=== PATIENT | male | born 1955 | race Caucasian/White ===

== ENCOUNTER 2018-04-11 20:38 | Inpatient (IN) | payer MEDICARE, MEDICAID ==
[2018-04-11] MEDS: DEXTROSE 5%-0.45% NACL 1,000 ML IV
[2018-04-11] MEDS: VANCOMYCIN 1 GM (PMX) 250 ML IVPB (03:00)
[~2018-04-11 20:38] MED LIST: CA CHLORIDE 10% 10 ML SYRINGE; DEXTROSE 50% 50 ML SYRINGE; EPINEPHrine 0.1 MG/ML SYG; MAGNESIUM SULFATE 1 GM/100 ML D5W IVPB; NA BICARBONATE 8.4% 50 ML SYG
[2018-04-11] MEDS ORDERED: NORepinephrine 4 MG INJ (21:48)
[2018-04-11] MEDS ORDERED: CA CHLORIDE 10% 10 ML SYRINGE (21:52)
[2018-04-11] MEDS ORDERED: NORepinephrine 8MG/250 ML (PMX 250 ML IV (22:00)
[2018-04-11] MEDS: CALCITRIOL (1 MCG/ML PO SYG) PO (22:30)
[2018-04-11 23:08] LABS: ABNORMAL IP MESSAGE 1; HEMATOCRIT 27.4 % (42.0-52.0); IMMATURE GRANS #M 0.79 10^3/ul; MEAN CORPUSCULAR HEMOGLOBIN 30.9 pg (29.0-33.0); MEAN CORPUSCULAR HGB CONC 29.2 g/dl (32.0-37.0); MEAN CORPUSCULAR VOLUME 105.8 fl (82.0-101.0); MEAN PLATELET VOLUME 10.6 fl (7.4-10.4); NUCLEATED RED BLOOD CELLS% 1.2 /100WBC (0.0-0.0); PLATELET COUNT 143 10^3/UL (140-415); POSITIVE DIFF @See below; RED BLOOD COUNT 2.59 10^6/ul (4.70-6.10); RED CELL DISTRIBUTION WIDTH 20.7 % (11.5-14.5)
[2018-04-11 23:08] LABS: WHITE BLOOD COUNT 38.6 10^3/ul (4.8-10.8)
[2018-04-11 23:09] LABS: AADO2 Arterial 595.9 mmHg (7.0-24.0); Arterial Base Excess -16.7 mmol/L (-3.0-3); Arterial Blood Gas Oxygen Sat 87.5 mmHG (95.0-98.0); Arterial COHb 0.3 % (0.0-3.0); Arterial Fraction of Oxyhgb 86.9 % (93.0-99.0); Arterial HCO3 12.6 mmol/L (22.0-26.0); Arterial MetHb 0.4 % (0.0-1.5); Arterial Total Hemglobin 10.6 g/dl (12.0-18.0); Arterial pCO2 43.7 mmhg (35-45); MODE VENT - AC; Site LB
[2018-04-11 23:10] LABS: ADD MAN DIFF? YES
[2018-04-11 23:26] LABS: ANION GAP 22 (8-16); BLOOD UREA NITROGEN 70 mg/dl (7-20); CALCIUM 10.5 mg/dl (8.4-10.2); CARBON DIOXIDE 15 mmol/L (21-31); CHLORIDE 104 mmol/L (97-110); CREATININE 3.72 mg/dl (0.61-1.24); GLUCOSE 281 mg/dl (70-220); POTASSIUM 3.7 mmol/L (3.5-5.1); SODIUM 137 mmol/L (135-144)
[2018-04-11 23:26] LABS: PHOSPHORUS 7.6 mg/dl (2.5-4.9)
[2018-04-11 23:29] LABS: MAGNESIUM 5.1 mg/dl (1.7-2.5)
[2018-04-11] MEDS: LEVETIRACETAM 500 MG (PMX) 100 ML IVPB (23:30)
[2018-04-11] MEDS ORDERED: MEROPENEM 1 GM/50ML(PMX) 50 ML IVPB (23:30)
[2018-04-11] MEDS ORDERED: VANCOMYCIN IV PER PHARMACY XX ×2 (23:30)
[2018-04-12] MEDS: NA BICARBONATE 8.4% 50 ML SYG IV
[2018-04-12 00:06] LABS: ANISOCYTOSIS 1+ (0-0); BAND NEUTROPHILS #M 9.2 10^3/ul (0.0-0.6); BAND NEUTROPHILS % (M) 24 % (0-4); ERYTHROBLAST% (NRBC) (M) 3 % (0-0); GIANT THROMBO% (M) 1 % (0-0); LYMPHOCYTES #M 4.6 10^3/ul (0.8-2.9); LYMPHOCYTES % (M) 12 % (15-51); MONOCYTE #M 1.5 10^3/ul (0.3-0.9); MONOCYTES % (M) 4 % (0-11); MYELOCYTES #M 0.7 10^3/ul (0.0-0.0); MYELOCYTES % (M) 2 % (0-0); PLATELET ESTIMATE NORMAL; POIKILOCYTOSIS 2+ (0-0); REACTIVE LYMPHOCYTES #M 0.7 10^3/ul (0.0-0.0); REACTIVE LYMPHOCYTES% (M) 2 % (0-0); SEG NEUT #M 25.2 10^3/ul (1.6-7.5); SEGMENTED NEUTROPHILS (M) % 56 % (39-77); SMUDGE%M 3 % (0-0)
[2018-04-12] MEDS: ALBUTEROL/IPRATROPIUM (NEB) 3 ML AMP HHN ×2 (01:53→08:51)
[2018-04-12] MEDS: PANTOPRAZOLE 40 MG INJ IV (02:49)
[2018-04-12 04:44] LABS: WHITE BLOOD COUNT 47.4 10^3/ul (4.8-10.8)
[2018-04-12 04:44] LABS: ABNORMAL IP MESSAGE 1; HEMATOCRIT 30.1 % (42.0-52.0); HEMOGLOBIN 9.2 g/dl (14.0-18.0); IMMATURE GRANS #M 0.96 10^3/ul; MEAN CORPUSCULAR HEMOGLOBIN 30.8 pg (29.0-33.0); MEAN CORPUSCULAR HGB CONC 30.6 g/dl (32.0-37.0); MEAN CORPUSCULAR VOLUME 100.7 fl (82.0-101.0); MEAN PLATELET VOLUME 11.4 fl (7.4-10.4); NUCLEATED RED BLOOD CELLS% 2.1 /100WBC (0.0-0.0); PLATELET COUNT 151 10^3/UL (140-415); POSITIVE DIFF @See below; RED BLOOD COUNT 2.99 10^6/ul (4.70-6.10); RED CELL DISTRIBUTION WIDTH 20.7 % (11.5-14.5)
[2018-04-12 04:48] LABS: ADD MAN DIFF? YES
[2018-04-12 05:15] LABS: ALANINE AMINOTRANSFERASE 19 IU/L (13-69); ALBUMIN 2.6 g/dl (3.3-4.9); ALBUMIN/GLOBULIN RATIO 0.68; ALKALINE PHOSPHATASE 411 IU/L (42-121); ANION GAP 20 (8-16); ASPARTATE AMINO TRANSFERASE 82 IU/L (15-46); BILIRUBIN,TOTAL 0.1 mg/dl (0.2-1.3); BLOOD UREA NITROGEN 72 mg/dl (7-20); CALCIUM 10.1 mg/dl (8.4-10.2); CARBON DIOXIDE 20 mmol/L (21-31); CHLORIDE 103 mmol/L (97-110); CREATININE 3.46 mg/dl (0.61-1.24); GLUCOSE 238 mg/dl (70-220); POTASSIUM 3.8 mmol/L (3.5-5.1); SODIUM 139 mmol/L (135-144); TOTAL PROTEIN 6.4 g/dl (6.1-8.1)
[2018-04-12 05:28] LABS: LACTIC ACID 4.8 mmol/L (0.5-2.0)
[2018-04-12] MEDS ORDERED: METOCLOPRAMIDE 10 MG INJ IV (06:00)
[2018-04-12] MEDS ORDERED: PANTOPRAZOLE (EC) 40 MG TAB PO (06:00)
[2018-04-12] MEDS: LEVOTHYROXINE 100 MCG TAB PEG (06:03)
[2018-04-12] MEDS: metroNIDAZOLE 500 MG TAB GTB ×3 (06:03→21:14)
[2018-04-12 07:33] LABS: ANISOCYTOSIS 2+ (0-0); BAND NEUTROPHILS #M 25.5 10^3/ul (0.0-0.6); BAND NEUTROPHILS % (M) 54 % (0-4); BURR CELLS 1+ (0-0); EOSINOPHILS % (M) 1 % (0-7); ERYTHROBLAST% (NRBC) (M) 1 % (0-0); LYMPHOCYTES #M 0.9 10^3/ul (0.8-2.9); LYMPHOCYTES % (M) 2 % (15-51); METAMYELOCYTES #M 0.9 10^3/ul (0.0-0.0); METAMYELOCYTES %M 2 % (0-0); MONOCYTE #M 2.3 10^3/ul (0.3-0.9); MONOCYTES % (M) 5 % (0-11); PLATELET ESTIMATE NORMAL; POIKILOCYTOSIS 1+ (0-0); SEG NEUT #M 29.2 10^3/ul (1.6-7.5); SEGMENTED NEUTROPHILS (M) % 36 % (39-77); SMUDGE%M 1 % (0-0)
[2018-04-12] MEDS: LEVETIRACETAM 500 MG (PMX) 100 ML IVPB ×2 (09:08→21:14)
[2018-04-12] MEDS: VALPROIC ACID LIQUID CUP 250 MG/5 ML CUP GTB (09:08)
[2018-04-12] MEDS: DOPamine-D5W 1.6 MG/ML 250 ML IV (09:16)
[2018-04-12] MEDS: MEROPENEM 500MG/50 ML (PMX) 50 ML IVPB ×2 (10:01→21:14)
[2018-04-12] MEDS ORDERED: AMIKACIN 500 MG in SOD CHLORIDE 0.9% 100 ML IVPB (10:30)
[2018-04-12] MEDS ORDERED: AMIKACIN IV PER PHARMACY XX (11:00)
[2018-04-12] MEDS ORDERED: AMIKACIN 400 MG in SOD CHLORIDE 0.9% 100 ML IVPB (12:00)
[2018-04-12 12:28] LABS: INR 1.93; PROTIME 22.5 Sec (11.9-14.9); PT RATIO 1.8
[2018-04-12 12:30] LABS: PARTIAL THROMBOPLASTIN TIME 62.7 Sec (25.0-35.0)
[2018-04-12] MEDS: ALBUMIN HUMAN 25% 100 ML IV (12:54)
[2018-04-12 13:09] LABS: Arterial COHb 0.3 % (0.0-3.0); Site A-Line
[2018-04-12] MEDS ORDERED: SODIUM BICARBONATE (IV ADD) 150 MEQ in DEXTROSE 5% 1,000 ML IV (13:30)
[2018-04-12] MEDS: SODIUM BICARBONATE (IV ADD) 150 MEQ in DEXTROSE 5% 1,000 ML IV (13:43)
[2018-04-12] MEDS: VASOPRESSIN 60 UNIT in DEXTROSE 5% 57 ML IV (13:56)
[2018-04-12 14:02] LABS: Arterial Base Excess -9.8 mmol/L (-3.0-3); Arterial Blood Gas Oxygen Sat 88.8 mmHG (95.0-98.0); Arterial COHb 0.3 % (0.0-3.0); Arterial Fraction of Oxyhgb 88.2 % (93.0-99.0); Arterial HCO3 15.6 mmol/L (22.0-26.0); Arterial MetHb 0.4 % (0.0-1.5); Arterial Total Hemglobin 10.1 g/dl (12.0-18.0); Arterial pCO2 32.3 mmhg (35-45); MODE VENT - AC; Site A-Line
[2018-04-12] MEDS: HYDROCORTISONE 100 MG INJ IV ×2 (14:15→21:14)
[2018-04-12] MEDS: IPRATROPIUM (HFA) 12.9 GM INHALER INH ×3 (14:25→20:33)
[2018-04-12] MEDS: ALBUTEROL HFA 8 GM INHALER INH ×3 (14:25→20:33)
[2018-04-12] MEDS: AMIKACIN 400 MG in SOD CHLORIDE 0.9% 100 ML IVPB (18:28)
[2018-04-12] MEDS: DIVALPROEX SPRINKLE 125 MG CAP PO (21:14)
[2018-04-12] MEDS: ATORVASTATIN 20 MG TAB GTB (21:14)
[2018-04-13] MEDS ORDERED: PROPOFOL 100 ML (01:08)
[2018-04-13] MEDS: PROPOFOL 100 ML IV ×4 (01:17→20:40)
[2018-04-13] MEDS: ALBUTEROL HFA 8 GM INHALER INH ×6 (01:45→20:02)
[2018-04-13] MEDS: IPRATROPIUM (HFA) 12.9 GM INHALER INH ×6 (01:45→20:02)
[2018-04-13] MEDS: VASOPRESSIN 60 UNIT in DEXTROSE 5% 57 ML IV ×2 (02:00→10:15)
[2018-04-13] MEDS: METOCLOPRAMIDE 10 MG INJ IV (02:50)
[2018-04-13 04:52] LABS: AADO2 Arterial 630.2 mmHg (7.0-24.0); Arterial Base Excess -10.6 mmol/L (-3.0-3); Arterial Blood Gas Oxygen Sat 82.8 mmHG (95.0-98.0); Arterial Fraction of Oxyhgb 82.1 % (93.0-99.0); Arterial HCO3 14.8 mmol/L (22.0-26.0); Arterial MetHb 0.5 % (0.0-1.5); Arterial Total Hemglobin 12.1 g/dl (12.0-18.0); Arterial pCO2 31.3 mmhg (35-45); MODE VENT - PC
[2018-04-13 05:19] LABS: WHITE BLOOD COUNT 34.5 10^3/ul (4.8-10.8)
[2018-04-13 05:19] LABS: ABNORMAL IP MESSAGE 1; HEMATOCRIT 25.3 % (42.0-52.0); IMMATURE GRANS #M 0.79 10^3/ul; IMMATURE GRANS % (M) 2.3 %; MEAN CORPUSCULAR HEMOGLOBIN 30.9 pg (29.0-33.0); MEAN CORPUSCULAR HGB CONC 31.6 g/dl (32.0-37.0); MEAN CORPUSCULAR VOLUME 97.7 fl (82.0-101.0); NUCLEATED RED BLOOD CELLS% 4.1 /100WBC (0.0-0.0); PLATELET COUNT 125 10^3/UL (140-415); POSITIVE DIFF @See below; RED BLOOD COUNT 2.59 10^6/ul (4.70-6.10); RED CELL DISTRIBUTION WIDTH 20.5 % (11.5-14.5)
[2018-04-13 05:24] LABS: LACTIC ACID 4.5 mmol/L (0.5-2.0)
[2018-04-13 05:27] LABS: ADD MAN DIFF? YES
[2018-04-13 05:36] LABS: PARTIAL THROMBOPLASTIN TIME 67.7 Sec (25.0-35.0)
[2018-04-13 05:39] LABS: INR 3.85; PROTIME 39.1 Sec (11.9-14.9); PT RATIO 3.1
[2018-04-13 05:42] LABS: ALANINE AMINOTRANSFERASE 25 IU/L (13-69); ALBUMIN 2.2 g/dl (3.3-4.9); ALBUMIN/GLOBULIN RATIO 0.64; ALKALINE PHOSPHATASE 259 IU/L (42-121); ANION GAP 24 (8-16); ASPARTATE AMINO TRANSFERASE 104 IU/L (15-46); BILIRUBIN,TOTAL 0.1 mg/dl (0.2-1.3); BLOOD UREA NITROGEN 81 mg/dl (7-20); CARBON DIOXIDE 17 mmol/L (21-31); CHLORIDE 101 mmol/L (97-110); CREATININE 3.62 mg/dl (0.61-1.24); GLUCOSE 84 mg/dl (70-220); POTASSIUM 5.5 mmol/L (3.5-5.1); SODIUM 136 mmol/L (135-144); TOTAL PROTEIN 5.6 g/dl (6.1-8.1)
[2018-04-13] MEDS: HYDROCORTISONE 100 MG INJ IV ×3 (06:21→21:57)
[2018-04-13] MEDS: metroNIDAZOLE 500 MG TAB GTB ×3 (06:21→21:57)
[2018-04-13] MEDS: PANTOPRAZOLE 40 MG INJ IV (06:21)
[2018-04-13] MEDS: LEVOTHYROXINE 100 MCG TAB PEG (06:21)
[2018-04-13 07:56] LABS: ANISOCYTOSIS 1+ (0-0); BAND NEUTROPHILS #M 18.9 10^3/ul (0.0-0.6); BAND NEUTROPHILS % (M) 55 % (0-4); BURR CELLS 2+ (0-0); EOSINOPHILS % (M) 2 % (0-7); ERYTHROBLAST% (NRBC) (M) 7 % (0-0); GIANT THROMBO% (M) 1 % (0-0); LYMPHOCYTES #M 0.3 10^3/ul (0.8-2.9); LYMPHOCYTES % (M) 1 % (15-51); MONOCYTE #M 1.3 10^3/ul (0.3-0.9); MONOCYTES % (M) 4 % (0-11); OVALOCYTES 1+ (0-0); PLATELET ESTIMATE DECREASED; POIKILOCYTOSIS 1+ (0-0); POLYCHROMASIA 1+ (0-0); SEG NEUT #M 19.6 10^3/ul (1.6-7.5); SEGMENTED NEUTROPHILS (M) % 38 % (39-77); SMUDGE%M 11 % (0-0)
[2018-04-13] MEDS: LEVETIRACETAM 500 MG (PMX) 100 ML IVPB ×2 (08:26→20:40)
[2018-04-13] MEDS: MEROPENEM 500MG/50 ML (PMX) 50 ML IVPB ×2 (08:27→20:40)
[2018-04-13] MEDS: VALPROIC ACID LIQUID CUP 250 MG/5 ML CUP GTB (08:27)
[2018-04-13] MEDS: SODIUM BICARBONATE (IV ADD) 150 MEQ in DEXTROSE 5% 1,000 ML IV (10:12)
[2018-04-13] MEDS: DIVALPROEX SPRINKLE 125 MG CAP PO (20:39)
[2018-04-13] MEDS: ATORVASTATIN 20 MG TAB GTB (20:39)
[2018-04-13] MEDS: CALCITRIOL (1 MCG/ML PO SYG) PO (22:31)
[2018-04-14] MEDS: ALBUTEROL HFA 8 GM INHALER INH ×6 (00:13→21:08)
[2018-04-14] MEDS: IPRATROPIUM (HFA) 12.9 GM INHALER INH ×6 (00:13→21:08)
[2018-04-14] MEDS: PROPOFOL 100 ML IV ×3 (04:02→18:03)
[2018-04-14 04:59] LABS: AADO2 Arterial 560.2 mmHg (7.0-24.0); Allen Test ACCEPTAB; Arterial Base Excess -6.9 mmol/L (-3.0-3); Arterial Blood Gas Oxygen Sat 97.6 mmHG (95.0-98.0); Arterial COHb 0.2 % (0.0-3.0); Arterial Fraction of Oxyhgb 96.8 % (93.0-99.0); Arterial HCO3 19.1 mmol/L (22.0-26.0); Arterial MetHb 0.6 % (0.0-1.5); Arterial Total Hemglobin 7.5 g/dl (12.0-18.0); Arterial pCO2 41.1 mmhg (35-45); MODE VENT - AC; Site Left Radial
[2018-04-14] MEDS: HYDROCORTISONE 100 MG INJ IV ×3 (05:43→22:16)
[2018-04-14] MEDS: metroNIDAZOLE 500 MG TAB GTB (05:43)
[2018-04-14] MEDS: SODIUM BICARBONATE (IV ADD) 150 MEQ in DEXTROSE 5% 1,000 ML IV (05:43)
[2018-04-14] MEDS: PANTOPRAZOLE 40 MG INJ IV (05:43)
[2018-04-14] MEDS: LEVOTHYROXINE 100 MCG TAB PEG (05:43)
[2018-04-14] MEDS: VASOPRESSIN 60 UNIT in DEXTROSE 5% 57 ML IV ×2 (05:48→14:00)
[2018-04-14 06:08] LABS: ABNORMAL IP MESSAGE 1; HEMOGLOBIN 7.5 g/dl (14.0-18.0); IMMATURE GRANS #M 0.09 10^3/ul; IMMATURE GRANS % (M) 0.7 %; MEAN CORPUSCULAR HEMOGLOBIN 30.4 pg (29.0-33.0); MEAN CORPUSCULAR HGB CONC 31.3 g/dl (32.0-37.0); MEAN CORPUSCULAR VOLUME 97.2 fl (82.0-101.0); MEAN PLATELET VOLUME 12.4 fl (7.4-10.4); NUCLEATED RED BLOOD CELLS% 12.3 /100WBC (0.0-0.0); PLATELET COUNT 114 10^3/UL (140-415); POSITIVE DIFF @See below; RED BLOOD COUNT 2.47 10^6/ul (4.70-6.10); RED CELL DISTRIBUTION WIDTH 20.2 % (11.5-14.5)
[2018-04-14 06:08] LABS: WHITE BLOOD COUNT 13.2 10^3/ul (4.8-10.8)
[2018-04-14 06:17] LABS: ANION GAP 23 (8-16); BLOOD UREA NITROGEN 96 mg/dl (7-20); CALCIUM 7.8 mg/dl (8.4-10.2); CARBON DIOXIDE 19 mmol/L (21-31); CHLORIDE 95 mmol/L (97-110); CREATININE 4.08 mg/dl (0.61-1.24); GLUCOSE 112 mg/dl (70-220); SODIUM 131 mmol/L (135-144)
[2018-04-14 06:19] LABS: LACTIC ACID 2.7 mmol/L (0.5-2.0)
[2018-04-14 06:20] LABS: ADD MAN DIFF? YES
[2018-04-14 06:22] LABS: POTASSIUM 6.2 mmol/L (3.5-5.1)
[2018-04-14] MEDS: LEVETIRACETAM 500 MG (PMX) 100 ML IVPB ×2 (08:29→20:48)
[2018-04-14] MEDS: MEROPENEM 500MG/50 ML (PMX) 50 ML IVPB ×2 (08:29→20:48)
[2018-04-14 08:35] LABS: ANISOCYTOSIS 1+ (0-0); BAND NEUTROPHILS #M 5.9 10^3/ul (0.0-0.6); BAND NEUTROPHILS % (M) 45 % (0-4); ERYTHROBLAST% (NRBC) (M) 17 % (0-0); GIANT THROMBO% (M) 1 % (0-0); HYPOCHROMASIA 1+ (0-0); LYMPHOCYTES #M 0.7 10^3/ul (0.8-2.9); LYMPHOCYTES % (M) 6 % (15-51); METAMYELOCYTES #M 0.1 10^3/ul (0.0-0.0); METAMYELOCYTES %M 1 % (0-0); MONOCYTE #M 1.8 10^3/ul (0.3-0.9); MONOCYTES % (M) 14 % (0-11); PLATELET ESTIMATE DECREASED; POLYCHROMASIA 1+ (0-0); SEG NEUT #M 5.3 10^3/ul (1.6-7.5); SEGMENTED NEUTROPHILS (M) % 34 % (39-77); SMUDGE%M 24 % (0-0)
[2018-04-14] MEDS: VALPROIC ACID LIQUID CUP 250 MG/5 ML CUP GTB (09:00)
[2018-04-14] MEDS ORDERED: TOBRAMYCIN IV PER PHARMACY XX (10:00)
[2018-04-14] MEDS: TOBRAMYCIN IVPB (12:24)
[2018-04-14] MEDS: SOD CHLORIDE 0.9% IVPB (12:24)
[2018-04-14] MEDS ORDERED: metroNIDAZOLE 500 MG/NS (PMX) 100 ML IVPB (14:00)
[2018-04-14] MEDS: DIVALPROEX SPRINKLE 125 MG CAP PO (20:48)
[2018-04-14] MEDS: ATORVASTATIN 20 MG TAB GTB (20:49)
[2018-04-15] MEDS: IPRATROPIUM (HFA) 12.9 GM INHALER INH ×6 (01:03→21:36)
[2018-04-15] MEDS: ALBUTEROL HFA 8 GM INHALER INH ×6 (01:04→21:36)
[2018-04-15] MEDS: SODIUM BICARBONATE (IV ADD) 150 MEQ in DEXTROSE 5% 1,000 ML IV (01:49)
[2018-04-15] MEDS: PROPOFOL 100 ML IV (01:49)
[2018-04-15] MEDS: VASOPRESSIN 60 UNIT in DEXTROSE 5% 57 ML IV ×2 (01:54→15:45)
[2018-04-15] MEDS: BALSAM PERU/CASTOR OIL 60 GM TUBE TOP ×3 (04:43→21:05)
[2018-04-15] MEDS: COLLAGENASE 5 GM (UD JAR) TOP ×2 (04:43→17:59)
[2018-04-15 05:24] LABS: WHITE BLOOD COUNT 8.1 10^3/ul (4.8-10.8)
[2018-04-15 05:24] LABS: ABNORMAL IP MESSAGE 1; HEMATOCRIT 22.8 % (42.0-52.0); HEMOGLOBIN 7.4 g/dl (14.0-18.0); IMMATURE GRANS % (M) 1.2 %; MEAN CORPUSCULAR HGB CONC 32.5 g/dl (32.0-37.0); MEAN CORPUSCULAR VOLUME 95.4 fl (82.0-101.0); MEAN PLATELET VOLUME 12.5 fl (7.4-10.4); NUCLEATED RED BLOOD CELLS% 19.2 /100WBC (0.0-0.0); PLATELET COUNT 96 10^3/UL (140-415); POSITIVE DIFF @See below; RED BLOOD COUNT 2.39 10^6/ul (4.70-6.10); RED CELL DISTRIBUTION WIDTH 20.2 % (11.5-14.5)
[2018-04-15] MEDS: PANTOPRAZOLE 40 MG INJ IV (05:30)
[2018-04-15] MEDS: HYDROCORTISONE 100 MG INJ IV ×3 (05:30→22:10)
[2018-04-15 05:36] LABS: ANION GAP 23 (8-16); BLOOD UREA NITROGEN 67 mg/dl (7-20); CALCIUM 7.2 mg/dl (8.4-10.2); CARBON DIOXIDE 21 mmol/L (21-31); CHLORIDE 97 mmol/L (97-110); CREATININE 2.48 mg/dl (0.61-1.24); GLUCOSE 112 mg/dl (70-220); POTASSIUM 4.6 mmol/L (3.5-5.1); SODIUM 136 mmol/L (135-144)
[2018-04-15] MEDS ORDERED: LEVOTHYROXINE 100 MCG VIAL IV (06:00)
[2018-04-15 06:15] LABS: ADD MAN DIFF? YES
[2018-04-15] MEDS: LEVOTHYROXINE 100 MCG VIAL IV (06:58)
[2018-04-15] MEDS: VALPROIC ACID LIQUID CUP 250 MG/5 ML CUP GTB (09:00)
[2018-04-15 09:18] LABS: ANISOCYTOSIS 1+ (0-0); BAND NEUTROPHILS #M 4.2 10^3/ul (0.0-0.6); BAND NEUTROPHILS % (M) 52 % (0-4); ERYTHROBLAST% (NRBC) (M) 49 % (0-0); GIANT THROMBO% (M) 2 % (0-0); LYMPHOCYTES #M 0.7 10^3/ul (0.8-2.9); LYMPHOCYTES % (M) 9 % (15-51); METAMYELOCYTES #M 0.2 10^3/ul (0.0-0.0); METAMYELOCYTES %M 3 % (0-0); MONOCYTE #M 0.8 10^3/ul (0.3-0.9); MONOCYTES % (M) 10 % (0-11); MYELOCYTES #M 0.4 10^3/ul (0.0-0.0); MYELOCYTES % (M) 5 % (0-0); PLATELET ESTIMATE DECREASED; POLYCHROMASIA 3+ (0-0); SEGMENTED NEUTROPHILS (M) % 21 % (39-77); SMUDGE%M 76 % (0-0); SPHEROCYTES 1+ (0-0); TARGET CELLS 2+ (0-0)
[2018-04-15] MEDS: LEVETIRACETAM 500 MG (PMX) 100 ML IVPB ×2 (09:48→21:03)
[2018-04-15] MEDS: MEROPENEM 500MG/50 ML (PMX) 50 ML IVPB ×2 (10:06→21:02)
[2018-04-15] MEDS: SOD CHLORIDE 0.9% 250 ML IV* (12:43)
[2018-04-15 13:03] LABS: PLATELET COUNT 87 10^3/UL (140-415)
[2018-04-15 13:19] LABS: INR 1.23; PROTIME 15.7 Sec (11.9-14.9); PT RATIO 1.2
[2018-04-15 13:20] LABS: PARTIAL THROMBOPLASTIN TIME 39.1 Sec (25.0-35.0); THROMBIN TIME 17.7 SEC (13.8-19.1)
[2018-04-15] MEDS: SODIUM BICARBONATE (IV ADD) 100 MEQ in DEXTROSE 5% 900 ML IV (16:45)
[2018-04-15] MEDS: DIVALPROEX SPRINKLE 125 MG CAP PO (21:03)
[2018-04-15] MEDS: ATORVASTATIN 20 MG TAB GTB (21:03)
[2018-04-15] MEDS: CALCITRIOL (1 MCG/ML PO SYG) PO (22:10)
[2018-04-16] MEDS: IPRATROPIUM (HFA) 12.9 GM INHALER INH ×6 (01:13→20:35)
[2018-04-16] MEDS: ALBUTEROL HFA 8 GM INHALER INH ×6 (01:13→20:35)
[2018-04-16] MEDS: VASOPRESSIN 60 UNIT in DEXTROSE 5% 57 ML IV ×3 (02:17→14:00)
[2018-04-16 05:41] LABS: WHITE BLOOD COUNT 9.6 10^3/ul (4.8-10.8)
[2018-04-16 05:41] LABS: ABNORMAL IP MESSAGE 1; HEMATOCRIT 24.4 % (42.0-52.0); HEMOGLOBIN 7.9 g/dl (14.0-18.0); IMMATURE GRANS #M 0.15 10^3/ul; IMMATURE GRANS % (M) 1.6 %; MEAN CORPUSCULAR HEMOGLOBIN 30.2 pg (29.0-33.0); MEAN CORPUSCULAR HGB CONC 32.4 g/dl (32.0-37.0); MEAN CORPUSCULAR VOLUME 93.1 fl (82.0-101.0); MEAN PLATELET VOLUME 12.9 fl (7.4-10.4); NUCLEATED RED BLOOD CELLS% 16.9 /100WBC (0.0-0.0); PLATELET COUNT 102 10^3/UL (140-415); POSITIVE DIFF @See below; RED BLOOD COUNT 2.62 10^6/ul (4.70-6.10); RED CELL DISTRIBUTION WIDTH 20.3 % (11.5-14.5)
[2018-04-16] MEDS: HYDROCORTISONE 100 MG INJ IV ×3 (06:02→22:48)
[2018-04-16] MEDS: PANTOPRAZOLE 40 MG INJ IV (06:03)
[2018-04-16] MEDS: LEVOTHYROXINE 100 MCG VIAL IV (06:03)
[2018-04-16 06:04] LABS: ANION GAP 24 (8-16); BLOOD UREA NITROGEN 82 mg/dl (7-20); CARBON DIOXIDE 23 mmol/L (21-31); CHLORIDE 92 mmol/L (97-110); GLUCOSE 103 mg/dl (70-220); POTASSIUM 4.4 mmol/L (3.5-5.1); SODIUM 135 mmol/L (135-144)
[2018-04-16 06:32] LABS: ADD MAN DIFF? YES
[2018-04-16] MEDS: MEROPENEM 500MG/50 ML (PMX) 50 ML IVPB ×2 (08:39→20:16)
[2018-04-16] MEDS: LEVETIRACETAM 500 MG (PMX) 100 ML IVPB ×2 (08:39→20:16)
[2018-04-16] MEDS: COLLAGENASE 5 GM (UD JAR) TOP (08:39)
[2018-04-16] MEDS: VALPROIC ACID LIQUID CUP 250 MG/5 ML CUP GTB (08:40)
[2018-04-16] MEDS: BALSAM PERU/CASTOR OIL 60 GM TUBE TOP ×2 (08:40→20:16)
[2018-04-16 09:29] LABS: ANISOCYTOSIS 1+ (0-0); BAND NEUTROPHILS #M 4.3 10^3/ul (0.0-0.6); BAND NEUTROPHILS % (M) 45 % (0-4); BASOPHIL #M 0.1 10^3/ul (0.0-0.0); BASOPHILS % (M) 2 % (0-2); EOSINOPHILS % (M) 2 % (0-7); ERYTHROBLAST% (NRBC) (M) 29 % (0-0); GIANT THROMBO% (M) 3 % (0-0); LYMPHOCYTES #M 1.8 10^3/ul (0.8-2.9); LYMPHOCYTES % (M) 19 % (15-51); MONOCYTE #M 0.7 10^3/ul (0.3-0.9); MONOCYTES % (M) 8 % (0-11); MYELOCYTES % (M) 1 % (0-0); PLATELET ESTIMATE DECREASED; POLYCHROMASIA 2+ (0-0); REACTIVE LYMPHOCYTES% (M) 1 % (0-0); SEG NEUT #M 2.4 10^3/ul (1.6-7.5); SEGMENTED NEUTROPHILS (M) % 21 % (39-77); SMUDGE%M 21 % (0-0); TARGET CELLS 1+ (0-0)
[2018-04-16 12:42] LABS: LACTIC ACID 3.7 mmol/L (0.5-2.0)
[2018-04-16] MEDS: ERYTHROMYCIN BASE (EC) 250 MG TAB PO ×2 (13:07→22:00)
[2018-04-16] MEDS: PROPOFOL 100 ML IV ×2 (19:43→19:46)
[2018-04-16] MEDS: ATORVASTATIN 20 MG TAB GTB (19:44)
[2018-04-16] MEDS: DIVALPROEX SPRINKLE 125 MG CAP PO (19:45)
[2018-04-16] MEDS: HEPARIN 5,000 UNIT/0.5 ML VIAL SC (20:23)
[2018-04-17] MEDS: IPRATROPIUM (HFA) 12.9 GM INHALER INH ×6 (00:10→21:08)
[2018-04-17] MEDS: ALBUTEROL HFA 8 GM INHALER INH ×6 (00:11→21:08)
[2018-04-17] MEDS: PROPOFOL 100 ML IV ×2 (01:30→13:30)
[2018-04-17] MEDS: VASOPRESSIN 60 UNIT in DEXTROSE 5% 57 ML IV ×2 (02:00→13:44)
[2018-04-17 03:58] LABS: IMMEDIATE SPIN CROSSMATCH 1 3
[2018-04-17] MEDS: ERYTHROMYCIN BASE (EC) 250 MG TAB PO ×3 (06:00→21:23)
[2018-04-17] MEDS: LEVOTHYROXINE 100 MCG VIAL IV (06:49)
[2018-04-17] MEDS: HYDROCORTISONE 100 MG INJ IV ×3 (06:49→21:23)
[2018-04-17] MEDS: PANTOPRAZOLE 40 MG INJ IV (06:49)
[2018-04-17] MEDS: TOBRAMYCIN 100 MG in SOD CHLORIDE 0.9% 100 ML IVPB (06:50)
[2018-04-17 07:36] LABS: ABNORMAL IP MESSAGE 1; HEMATOCRIT 32.2 % (42.0-52.0); HEMOGLOBIN 10.9 g/dl (14.0-18.0); MEAN CORPUSCULAR HEMOGLOBIN 30.6 pg (29.0-33.0); MEAN CORPUSCULAR HGB CONC 33.9 g/dl (32.0-37.0); MEAN CORPUSCULAR VOLUME 90.4 fl (82.0-101.0); MEAN PLATELET VOLUME 12.9 fl (7.4-10.4); NUCLEATED RED BLOOD CELLS% 20.7 /100WBC (0.0-0.0); PLATELET COUNT 133 10^3/UL (140-415); POSITIVE DIFF @See below; RED BLOOD COUNT 3.56 10^6/ul (4.70-6.10); RED CELL DISTRIBUTION WIDTH 18.5 % (11.5-14.5)
[2018-04-17 07:36] LABS: WHITE BLOOD COUNT 10.9 10^3/ul (4.8-10.8)
[2018-04-17 07:50] LABS: ADD MAN DIFF? YES
[2018-04-17 07:56] LABS: ANION GAP 22 (8-16); BLOOD UREA NITROGEN 44 mg/dl (7-20); CALCIUM 7.7 mg/dl (8.4-10.2); CARBON DIOXIDE 29 mmol/L (21-31); CHLORIDE 92 mmol/L (97-110); CREATININE 1.56 mg/dl (0.61-1.24); GLUCOSE 85 mg/dl (70-220); POTASSIUM 3.1 mmol/L (3.5-5.1); SODIUM 140 mmol/L (135-144)
[2018-04-17 07:56] LABS: LACTIC ACID 1.7 mmol/L (0.5-2.0)
[2018-04-17] MEDS: VALPROIC ACID LIQUID CUP 250 MG/5 ML CUP GTB (09:00)
[2018-04-17] MEDS: COLLAGENASE 5 GM (UD JAR) TOP (09:00)
[2018-04-17] MEDS: BALSAM PERU/CASTOR OIL 60 GM TUBE TOP ×2 (09:00→21:06)
[2018-04-17 09:12] LABS: ANISOCYTOSIS 2+ (0-0); BAND NEUTROPHILS #M 3.5 10^3/ul (0.0-0.6); BAND NEUTROPHILS % (M) 33 % (0-4); BASOPHIL #M 0.2 10^3/ul (0.0-0.0); BASOPHILS % (M) 2 % (0-2); ERYTHROBLAST% (NRBC) (M) 8 % (0-0); GIANT THROMBO% (M) 2 % (0-0); LYMPHOCYTES #M 1.1 10^3/ul (0.8-2.9); LYMPHOCYTES % (M) 11 % (15-51); MONOCYTE #M 0.4 10^3/ul (0.3-0.9); MONOCYTES % (M) 4 % (0-11); PLATELET ESTIMATE DECREASED; POLYCHROMASIA 1+ (0-0); SEG NEUT #M 5.8 10^3/ul (1.6-7.5); SEGMENTED NEUTROPHILS (M) % 50 % (39-77); TARGET CELLS 1+ (0-0); TOXIC GRANULATION 2+ (0-0)
[2018-04-17] MEDS: MEROPENEM 500MG/50 ML (PMX) 50 ML IVPB ×2 (09:13→21:05)
[2018-04-17] MEDS: LEVETIRACETAM 500 MG (PMX) 100 ML IVPB ×2 (09:13→21:05)
[2018-04-17] MEDS: HEPARIN 5,000 UNIT/0.5 ML VIAL SC ×2 (09:14→21:11)
[2018-04-17] MEDS: POTASSIUM CHLORIDE 50 ML IVPB ×2 (12:34→15:14)
[2018-04-17] MEDS: LIDOCAINE 1% (MPF) 5 ML VIAL (15:45)
[2018-04-17] MEDS ORDERED: PENDING SANTYL ORDER FOR WOUND CARE XX (18:30)
[2018-04-17] MEDS: ATORVASTATIN 20 MG TAB GTB (21:05)
[2018-04-17] MEDS: DIVALPROEX SPRINKLE 125 MG CAP PO (21:05)
[2018-04-17] MEDS: CALCITRIOL (1 MCG/ML PO SYG) PO (21:25)
[2018-04-18] MEDS: ALBUTEROL HFA 8 GM INHALER INH ×6 (01:08→21:38)
[2018-04-18] MEDS: IPRATROPIUM (HFA) 12.9 GM INHALER INH ×6 (01:08→21:38)
[2018-04-18] MEDS: PROPOFOL 100 ML IV ×2 (01:30→11:01)
[2018-04-18] MEDS: VASOPRESSIN 60 UNIT in DEXTROSE 5% 57 ML IV ×2 (02:00→11:01)
[2018-04-18 05:12] LABS: ADD MAN DIFF? NO
[2018-04-18 05:17] LABS: BASOPHIL # 0.1 10^3/ul (0.0-0.1); BASOPHILS % 0.4 % (0.0-2.0); HEMATOCRIT 29.3 % (42.0-52.0); HEMOGLOBIN 9.8 g/dl (14.0-18.0); LYMPHOCYTES % 8.5 % (15.0-51.0); MEAN CORPUSCULAR HEMOGLOBIN 30.2 pg (29.0-33.0); MEAN CORPUSCULAR HGB CONC 33.4 g/dl (32.0-37.0); MEAN CORPUSCULAR VOLUME 90.2 fl (82.0-101.0); MEAN PLATELET VOLUME 12.5 fl (7.4-10.4); MONOCYTES % 8.4 % (0.0-11.0); NEUTROPHIL # 9.8 10^3/ul (1.6-7.5); NEUTROPHILS % 81.9 % (39.0-77.0); NUCLEATED RED BLOOD CELLS # 2.4 10^3/ul (0.0-0.0); NUCLEATED RED BLOOD CELLS% 20.3 /100WBC (0.0-0.0); PLATELET COUNT 152 10^3/UL (140-415); POSITIVE DIFF @See below; RED BLOOD COUNT 3.25 10^6/ul (4.70-6.10); RED CELL DISTRIBUTION WIDTH 19.6 % (11.5-14.5)
[2018-04-18 05:17] LABS: WHITE BLOOD COUNT 11.9 10^3/ul (4.8-10.8)
[2018-04-18] MEDS: LEVOTHYROXINE 100 MCG VIAL IV (05:22)
[2018-04-18] MEDS: ERYTHROMYCIN BASE (EC) 250 MG TAB PO (05:22)
[2018-04-18] MEDS: HYDROCORTISONE 100 MG INJ IV ×3 (05:22→21:08)
[2018-04-18] MEDS: PANTOPRAZOLE 40 MG INJ IV (05:22)
[2018-04-18 05:57] LABS: ANION GAP 19 (8-16); BLOOD UREA NITROGEN 75 mg/dl (7-20); CALCIUM 7.5 mg/dl (8.4-10.2); CARBON DIOXIDE 25 mmol/L (21-31); CHLORIDE 94 mmol/L (97-110); CREATININE 2.82 mg/dl (0.61-1.24); GLUCOSE 80 mg/dl (70-220); POTASSIUM 3.4 mmol/L (3.5-5.1); SODIUM 135 mmol/L (135-144)
[2018-04-18] MEDS: VALPROIC ACID LIQUID CUP 250 MG/5 ML CUP GTB (09:05)
[2018-04-18] MEDS: LEVETIRACETAM 500 MG (PMX) 100 ML IVPB ×2 (09:05→21:07)
[2018-04-18] MEDS: COLLAGENASE 5 GM (UD JAR) TOP (09:05)
[2018-04-18] MEDS: MEROPENEM 500MG/50 ML (PMX) 50 ML IVPB ×2 (09:05→21:07)
[2018-04-18] MEDS: BALSAM PERU/CASTOR OIL 60 GM TUBE TOP ×2 (09:07→21:08)
[2018-04-18] MEDS: HEPARIN 5,000 UNIT/0.5 ML VIAL SC ×2 (09:09→21:28)
[2018-04-18] MEDS: BISACODYL 10 MG SUPP PR (11:04)
[2018-04-18] MEDS: POLYETHYLENE GLYCOL 17 GM PACKET NGT (11:04)
[2018-04-18] MEDS: ERYTHROMYCIN ETHYL SUCC (80 MG/ML PO SYG) GTB ×2 (14:42→21:08)
[2018-04-18] MEDS: METOCLOPRAMIDE 10 MG INJ IV ×2 (14:42→21:08)
[2018-04-18] MEDS: DIVALPROEX SPRINKLE 125 MG CAP PO (21:07)
[2018-04-18] MEDS: ATORVASTATIN 20 MG TAB GTB (21:07)
[2018-04-19] MEDS: ACETAMINOPHEN 500 MG TAB PO (00:23)
[2018-04-19] MEDS: IPRATROPIUM (HFA) 12.9 GM INHALER INH ×6 (01:06→21:38)
[2018-04-19] MEDS: ALBUTEROL HFA 8 GM INHALER INH ×6 (01:07→21:38)
[2018-04-19] MEDS: PROPOFOL 100 ML IV ×2 (01:30→13:30)
[2018-04-19] MEDS: VASOPRESSIN 60 UNIT in DEXTROSE 5% 57 ML IV ×2 (02:00→13:50)
[2018-04-19] MEDS: HYDROCORTISONE 100 MG INJ IV ×3 (05:00→21:21)
[2018-04-19] MEDS: METOCLOPRAMIDE 10 MG INJ IV ×3 (05:00→21:21)
[2018-04-19] MEDS: ERYTHROMYCIN ETHYL SUCC (80 MG/ML PO SYG) GTB ×3 (05:00→21:21)
[2018-04-19] MEDS: LEVOTHYROXINE 100 MCG VIAL IV (05:00)
[2018-04-19] MEDS: PANTOPRAZOLE 40 MG INJ IV (05:00)
[2018-04-19 05:43] LABS: WHITE BLOOD COUNT 14.7 10^3/ul (4.8-10.8)
[2018-04-19 05:43] LABS: HEMATOCRIT 30.8 % (42.0-52.0); HEMOGLOBIN 10.1 g/dl (14.0-18.0); MEAN CORPUSCULAR HEMOGLOBIN 30.6 pg (29.0-33.0); MEAN CORPUSCULAR HGB CONC 32.8 g/dl (32.0-37.0); MEAN CORPUSCULAR VOLUME 93.3 fl (82.0-101.0); MEAN PLATELET VOLUME 12.8 fl (7.4-10.4); PLATELET COUNT 159 10^3/UL (140-415); POSITIVE DIFF @See below; RED CELL DISTRIBUTION WIDTH 20.3 % (11.5-14.5)
[2018-04-19 06:07] LABS: ANION GAP 24 (8-16); BLOOD UREA NITROGEN 88 mg/dl (7-20); CALCIUM 7.8 mg/dl (8.4-10.2); CARBON DIOXIDE 23 mmol/L (21-31); CHLORIDE 94 mmol/L (97-110); CREATININE 2.97 mg/dl (0.61-1.24); GLUCOSE 82 mg/dl (70-220); POTASSIUM 3.7 mmol/L (3.5-5.1); SODIUM 137 mmol/L (135-144)
[2018-04-19 06:31] LABS: ADD MAN DIFF? YES
[2018-04-19 08:07] LABS: ANISOCYTOSIS 1+ (0-0); BAND NEUTROPHILS #M 6.4 10^3/ul (0.0-0.6); BAND NEUTROPHILS % (M) 44 % (0-4); ERYTHROBLAST% (NRBC) (M) 8 % (0-0); GIANT THROMBO% (M) 3 % (0-0); LYMPHOCYTES #M 0.8 10^3/ul (0.8-2.9); LYMPHOCYTES % (M) 6 % (15-51); METAMYELOCYTES #M 0.1 10^3/ul (0.0-0.0); METAMYELOCYTES %M 1 % (0-0); MONOCYTE #M 1.1 10^3/ul (0.3-0.9); MONOCYTES % (M) 8 % (0-11); MYELOCYTES #M 0.1 10^3/ul (0.0-0.0); MYELOCYTES % (M) 1 % (0-0); PLATELET ESTIMATE NORMAL; POIKILOCYTOSIS 2+ (0-0); REACTIVE LYMPHOCYTES #M 0.1 10^3/ul (0.0-0.0); REACTIVE LYMPHOCYTES% (M) 1 % (0-0); SEG NEUT #M 6.7 10^3/ul (1.6-7.5); SEGMENTED NEUTROPHILS (M) % 39 % (39-77); SMUDGE%M 1 % (0-0); TOXIC GRANULATION 1+ (0-0)
[2018-04-19] MEDS: MEROPENEM 500MG/50 ML (PMX) 50 ML IVPB ×2 (09:22→21:21)
[2018-04-19] MEDS: POLYETHYLENE GLYCOL 17 GM PACKET NGT (09:22)
[2018-04-19] MEDS: BALSAM PERU/CASTOR OIL 60 GM TUBE TOP ×2 (09:22→21:22)
[2018-04-19] MEDS: VALPROIC ACID LIQUID CUP 250 MG/5 ML CUP GTB (09:22)
[2018-04-19] MEDS: COLLAGENASE 5 GM (UD JAR) TOP (09:22)
[2018-04-19] MEDS: LEVETIRACETAM 500 MG (PMX) 100 ML IVPB ×2 (09:22→21:21)
[2018-04-19] MEDS: HEPARIN 5,000 UNIT/0.5 ML VIAL SC ×2 (09:27→21:41)
[2018-04-19 13:30] LABS: HEPATITIS B SURFACE ANTIGEN NEGATIVE (NEGATIVE)
[2018-04-19] MEDS: TOBRAMYCIN 100 MG in SOD CHLORIDE 0.9% 100 ML IVPB (14:52)
[2018-04-19] MEDS: DIVALPROEX SPRINKLE 125 MG CAP PO (21:21)
[2018-04-19] MEDS: ATORVASTATIN 20 MG TAB GTB (21:21)
[2018-04-19] MEDS: CALCITRIOL (1 MCG/ML PO SYG) PO (22:34)
[2018-04-20] MEDS: IPRATROPIUM (HFA) 12.9 GM INHALER INH ×6 (01:26→21:43)
[2018-04-20] MEDS: ALBUTEROL HFA 8 GM INHALER INH ×6 (01:26→21:43)
[2018-04-20] MEDS: PROPOFOL 100 ML IV ×2 (01:30→13:20)
[2018-04-20] MEDS: VASOPRESSIN 60 UNIT in DEXTROSE 5% 57 ML IV ×2 (02:00→13:21)
[2018-04-20 05:57] LABS: WHITE BLOOD COUNT 10.6 10^3/ul (4.8-10.8)
[2018-04-20 05:57] LABS: ABNORMAL IP MESSAGE 1; HEMATOCRIT 29.8 % (42.0-52.0); HEMOGLOBIN 9.6 g/dl (14.0-18.0); MEAN CORPUSCULAR HEMOGLOBIN 30.9 pg (29.0-33.0); MEAN CORPUSCULAR HGB CONC 32.2 g/dl (32.0-37.0); MEAN CORPUSCULAR VOLUME 95.8 fl (82.0-101.0); MEAN PLATELET VOLUME 12.3 fl (7.4-10.4); NUCLEATED RED BLOOD CELLS% 8.8 /100WBC (0.0-0.0); PLATELET COUNT 150 10^3/UL (140-415); POSITIVE DIFF @See below; RED BLOOD COUNT 3.11 10^6/ul (4.70-6.10); RED CELL DISTRIBUTION WIDTH 20.7 % (11.5-14.5)
[2018-04-20 06:05] LABS: ADD MAN DIFF? YES
[2018-04-20] MEDS: HYDROCORTISONE 100 MG INJ IV ×3 (06:17→21:34)
[2018-04-20] MEDS: PANTOPRAZOLE 40 MG INJ IV (06:17)
[2018-04-20] MEDS: METOCLOPRAMIDE 10 MG INJ IV ×3 (06:18→21:34)
[2018-04-20] MEDS: ERYTHROMYCIN ETHYL SUCC (80 MG/ML PO SYG) GTB ×3 (06:18→21:35)
[2018-04-20] MEDS: LEVOTHYROXINE 100 MCG VIAL IV (06:18)
[2018-04-20 06:34] LABS: ANION GAP 17 (8-16); BLOOD UREA NITROGEN 60 mg/dl (7-20); CALCIUM 7.9 mg/dl (8.4-10.2); CARBON DIOXIDE 28 mmol/L (21-31); CHLORIDE 95 mmol/L (97-110); CREATININE 2.43 mg/dl (0.61-1.24); GLUCOSE 108 mg/dl (70-220); POTASSIUM 3.4 mmol/L (3.5-5.1); SODIUM 137 mmol/L (135-144)
[2018-04-20 08:35] LABS: ANISOCYTOSIS 2+ (0-0); BAND NEUTROPHILS #M 1.1 10^3/ul (0.0-0.6); BAND NEUTROPHILS % (M) 11 % (0-4); ERYTHROBLAST% (NRBC) (M) 16 % (0-0); GIANT THROMBO% (M) 1 % (0-0); LYMPHOCYTES #M 1.3 10^3/ul (0.8-2.9); LYMPHOCYTES % (M) 13 % (15-51); MONOCYTE #M 1.2 10^3/ul (0.3-0.9); MONOCYTES % (M) 12 % (0-11); PLATELET ESTIMATE NORMAL; SEG NEUT #M 6.9 10^3/ul (1.6-7.5); SEGMENTED NEUTROPHILS (M) % 64 % (39-77); SMUDGE%M 6 % (0-0); TOXIC GRANULATION 1+ (0-0)
[2018-04-20] MEDS: LEVETIRACETAM 500 MG (PMX) 100 ML IVPB ×2 (08:45→21:35)
[2018-04-20] MEDS: COLLAGENASE 5 GM (UD JAR) TOP (08:46)
[2018-04-20] MEDS: BALSAM PERU/CASTOR OIL 60 GM TUBE TOP ×2 (08:46→21:35)
[2018-04-20] MEDS: POLYETHYLENE GLYCOL 17 GM PACKET NGT (08:47)
[2018-04-20] MEDS: MEROPENEM 500MG/50 ML (PMX) 50 ML IVPB ×2 (08:47→21:35)
[2018-04-20] MEDS: VALPROIC ACID LIQUID CUP 250 MG/5 ML CUP GTB (08:47)
[2018-04-20] MEDS: HEPARIN 5,000 UNIT/0.5 ML VIAL SC ×2 (08:48→21:37)
[2018-04-20] MEDS ORDERED: NORepinephrine 8MG/250 ML (PMX 250 ML IV (17:30)
[2018-04-20] MEDS: POTASSIUM CHLORIDE 100 ML IVPB (19:31)
[2018-04-20] MEDS: DIVALPROEX SPRINKLE 125 MG CAP PO (21:35)
[2018-04-20] MEDS: ATORVASTATIN 20 MG TAB GTB (21:35)
[2018-04-21 00:08] LABS: AADO2 Arterial 603.2 mmHg (7.0-24.0); Arterial Base Excess 0.3 mmol/L (-3.0-3); Arterial Blood Gas Oxygen Sat 92.9 mmHG (95.0-98.0); Arterial COHb 0.1 % (0.0-3.0); Arterial Fraction of Oxyhgb 92.4 % (93.0-99.0); Arterial HCO3 24.6 mmol/L (22.0-26.0); Arterial MetHb 0.4 % (0.0-1.5); Arterial Total Hemglobin 10.8 g/dl (12.0-18.0); Arterial pCO2 38.1 mmhg (35-45); MODE VENT - AC; Site A-Line
[2018-04-21] MEDS: PROPOFOL 100 ML IV ×2 (01:30→13:18)
[2018-04-21] MEDS: ALBUTEROL HFA 8 GM INHALER INH ×6 (01:54→19:14)
[2018-04-21] MEDS: IPRATROPIUM (HFA) 12.9 GM INHALER INH ×6 (01:54→19:13)
[2018-04-21] MEDS: VASOPRESSIN 60 UNIT in DEXTROSE 5% 57 ML IV ×2 (02:00→13:18)
[2018-04-21 05:15] LABS: ADD MAN DIFF? NO
[2018-04-21 05:19] LABS: WHITE BLOOD COUNT 11.6 10^3/ul (4.8-10.8)
[2018-04-21 05:19] LABS: ABNORMAL IP MESSAGE 1; BASOPHILS % 0.3 % (0.0-2.0); EOSINOPHILS % 0.3 % (0.0-7.0); HEMATOCRIT 30.2 % (42.0-52.0); HEMOGLOBIN 9.6 g/dl (14.0-18.0); LYMPHOCYTES % 8.4 % (15.0-51.0); MEAN CORPUSCULAR HEMOGLOBIN 30.5 pg (29.0-33.0); MEAN CORPUSCULAR HGB CONC 31.8 g/dl (32.0-37.0); MEAN CORPUSCULAR VOLUME 95.9 fl (82.0-101.0); MONOCYTE # 0.8 10^3/ul (0.3-0.9); MONOCYTES % 6.6 % (0.0-11.0); NEUTROPHIL # 9.7 10^3/ul (1.6-7.5); NEUTROPHILS % 83.6 % (39.0-77.0); NUCLEATED RED BLOOD CELLS # 0.5 10^3/ul (0.0-0.0); NUCLEATED RED BLOOD CELLS% 4.6 /100WBC (0.0-0.0); PLATELET COUNT 134 10^3/UL (140-415); POSITIVE DIFF @See below; RED BLOOD COUNT 3.15 10^6/ul (4.70-6.10); RED CELL DISTRIBUTION WIDTH 20.8 % (11.5-14.5)
[2018-04-21 05:41] LABS: ANION GAP 22 (8-16); BLOOD UREA NITROGEN 79 mg/dl (7-20); CALCIUM 8.3 mg/dl (8.4-10.2); CARBON DIOXIDE 24 mmol/L (21-31); CHLORIDE 97 mmol/L (97-110); CREATININE 2.85 mg/dl (0.61-1.24); GLUCOSE 88 mg/dl (70-220); MAGNESIUM 2.2 mg/dl (1.7-2.5); PHOSPHORUS 8.3 mg/dl (2.5-4.9); POTASSIUM 3.8 mmol/L (3.5-5.1); SODIUM 139 mmol/L (135-144)
[2018-04-21] MEDS: METOCLOPRAMIDE 10 MG INJ IV ×3 (06:21→21:42)
[2018-04-21] MEDS: PANTOPRAZOLE 40 MG INJ IV (06:21)
[2018-04-21] MEDS: LEVOTHYROXINE 100 MCG VIAL IV (06:21)
[2018-04-21] MEDS: HYDROCORTISONE 100 MG INJ IV ×3 (06:21→21:42)
[2018-04-21] MEDS: ERYTHROMYCIN ETHYL SUCC (80 MG/ML PO SYG) GTB ×3 (06:22→21:41)
[2018-04-21] MEDS: LEVETIRACETAM 500 MG (PMX) 100 ML IVPB ×2 (09:23→20:31)
[2018-04-21] MEDS: MEROPENEM 500MG/50 ML (PMX) 50 ML IVPB ×2 (09:24→20:31)
[2018-04-21] MEDS: BALSAM PERU/CASTOR OIL 60 GM TUBE TOP ×2 (09:24→20:43)
[2018-04-21] MEDS: POLYETHYLENE GLYCOL 17 GM PACKET NGT (09:24)
[2018-04-21] MEDS: VALPROIC ACID LIQUID CUP 250 MG/5 ML CUP GTB (09:24)
[2018-04-21] MEDS: COLLAGENASE 5 GM (UD JAR) TOP (09:24)
[2018-04-21] MEDS: HEPARIN 5,000 UNIT/0.5 ML VIAL SC ×2 (09:25→20:33)
[2018-04-21 14:21] LABS: AMMONIA 11 umol/l (9-30)
[2018-04-21] MEDS: ATORVASTATIN 20 MG TAB GTB (20:31)
[2018-04-21] MEDS: DIVALPROEX SPRINKLE 125 MG CAP PO (20:31)
[2018-04-21] MEDS: CALCITRIOL (1 MCG/ML PO SYG) PO (21:42)
[2018-04-22] MEDS: IPRATROPIUM (HFA) 12.9 GM INHALER INH ×6 (01:00→23:10)
[2018-04-22] MEDS: ALBUTEROL HFA 8 GM INHALER INH ×6 (01:00→23:10)
[2018-04-22] MEDS: PROPOFOL 100 ML IV ×2 (01:30→08:55)
[2018-04-22] MEDS: VASOPRESSIN 60 UNIT in DEXTROSE 5% 57 ML IV ×2 (02:00→11:36)
[2018-04-22] MEDS: METOCLOPRAMIDE 10 MG INJ IV ×3 (05:29→21:58)
[2018-04-22 05:31] LABS: WHITE BLOOD COUNT 9.4 10^3/ul (4.8-10.8)
[2018-04-22 05:31] LABS: ABNORMAL IP MESSAGE 1; HEMATOCRIT 28.2 % (42.0-52.0); HEMOGLOBIN 9.1 g/dl (14.0-18.0); MEAN CORPUSCULAR HGB CONC 32.3 g/dl (32.0-37.0); MEAN CORPUSCULAR VOLUME 95.9 fl (82.0-101.0); MEAN PLATELET VOLUME 12.2 fl (7.4-10.4); NUCLEATED RED BLOOD CELLS% 2.4 /100WBC (0.0-0.0); PLATELET COUNT 119 10^3/UL (140-415); POSITIVE DIFF @See below; RED BLOOD COUNT 2.94 10^6/ul (4.70-6.10); RED CELL DISTRIBUTION WIDTH 20.1 % (11.5-14.5)
[2018-04-22] MEDS: ERYTHROMYCIN ETHYL SUCC (80 MG/ML PO SYG) GTB ×3 (05:31→21:58)
[2018-04-22] MEDS: LEVOTHYROXINE 100 MCG VIAL IV (05:32)
[2018-04-22] MEDS: HYDROCORTISONE 100 MG INJ IV ×3 (05:32→21:58)
[2018-04-22] MEDS: PANTOPRAZOLE 40 MG INJ IV (05:32)
[2018-04-22 05:36] LABS: ADD MAN DIFF? YES
[2018-04-22 05:48] LABS: ANION GAP 20 (8-16); BLOOD UREA NITROGEN 95 mg/dl (7-20); CALCIUM 8.2 mg/dl (8.4-10.2); CARBON DIOXIDE 24 mmol/L (21-31); CHLORIDE 96 mmol/L (97-110); CREATININE 3.09 mg/dl (0.61-1.24); GLUCOSE 94 mg/dl (70-220); POTASSIUM 3.4 mmol/L (3.5-5.1); SODIUM 137 mmol/L (135-144)
[2018-04-22 07:25] LABS: ANISOCYTOSIS 2+ (0-0); BAND NEUTROPHILS % (M) 32 % (0-4); ERYTHROBLAST% (NRBC) (M) 2 % (0-0); GIANT THROMBO% (M) 3 % (0-0); LYMPHOCYTES #M 1.2 10^3/ul (0.8-2.9); LYMPHOCYTES % (M) 13 % (15-51); MONOCYTE #M 0.9 10^3/ul (0.3-0.9); MONOCYTES % (M) 10 % (0-11); PLATELET ESTIMATE DECREASED; POLYCHROMASIA 1+ (0-0); SEG NEUT #M 4.5 10^3/ul (1.6-7.5); SEGMENTED NEUTROPHILS (M) % 45 % (39-77); SMUDGE%M 2 % (0-0)
[2018-04-22] MEDS: COLLAGENASE 5 GM (UD JAR) TOP (08:29)
[2018-04-22] MEDS: VALPROIC ACID LIQUID CUP 250 MG/5 ML CUP GTB (08:29)
[2018-04-22] MEDS: LEVETIRACETAM 500 MG (PMX) 100 ML IVPB ×2 (08:30→21:07)
[2018-04-22] MEDS: POLYETHYLENE GLYCOL 17 GM PACKET NGT (08:30)
[2018-04-22] MEDS: BALSAM PERU/CASTOR OIL 60 GM TUBE TOP ×2 (08:30→21:11)
[2018-04-22] MEDS: MEROPENEM 500MG/50 ML (PMX) 50 ML IVPB ×2 (08:30→21:07)
[2018-04-22] MEDS: HEPARIN 5,000 UNIT/0.5 ML VIAL SC ×2 (08:55→21:10)
[2018-04-22] MEDS ORDERED: VANCOMYCIN IV PER PHARMACY XX (14:00)
[2018-04-22] MEDS: TOBRAMYCIN 100 MG in SOD CHLORIDE 0.9% 100 ML IVPB (17:48)
[2018-04-22] MEDS: FENTAnyl (DRIP) 1000 mcg/100mL 100 ML IV (17:51)
[2018-04-22] MEDS: DIVALPROEX SPRINKLE 125 MG CAP PO (21:08)
[2018-04-22] MEDS: VANCOMYCIN 1.75 GM in SOD CHLORIDE 0.9% 500 ML IVPB (21:08)
[2018-04-22] MEDS: ATORVASTATIN 20 MG TAB GTB (21:08)
[2018-04-23] MEDS: PROPOFOL 100 ML IV ×2 (01:30→13:29)
[2018-04-23] MEDS: IPRATROPIUM (HFA) 12.9 GM INHALER INH ×6 (02:08→20:31)
[2018-04-23] MEDS: ALBUTEROL HFA 8 GM INHALER INH ×6 (02:08→20:31)
[2018-04-23] MEDS: VASOPRESSIN 60 UNIT in DEXTROSE 5% 57 ML IV ×2 (02:51→14:00)
[2018-04-23 05:26] LABS: ADD MAN DIFF? NO
[2018-04-23 05:31] LABS: WHITE BLOOD COUNT 9.1 10^3/ul (4.8-10.8)
[2018-04-23 05:31] LABS: BASOPHILS % 0.2 % (0.0-2.0); EOSINOPHILS % 0.3 % (0.0-7.0); HEMATOCRIT 26.6 % (42.0-52.0); HEMOGLOBIN 8.2 g/dl (14.0-18.0); LYMPHOCYTES # 1.1 10^3/ul (0.8-2.9); LYMPHOCYTES % 11.6 % (15.0-51.0); MEAN CORPUSCULAR HEMOGLOBIN 29.9 pg (29.0-33.0); MEAN CORPUSCULAR HGB CONC 30.8 g/dl (32.0-37.0); MEAN CORPUSCULAR VOLUME 97.1 fl (82.0-101.0); MEAN PLATELET VOLUME 12.4 fl (7.4-10.4); NEUTROPHIL # 6.9 10^3/ul (1.6-7.5); NEUTROPHILS % 76.1 % (39.0-77.0); NUCLEATED RED BLOOD CELLS # 0.1 10^3/ul (0.0-0.0); NUCLEATED RED BLOOD CELLS% 0.9 /100WBC (0.0-0.0); PLATELET COUNT 123 10^3/UL (140-415); POSITIVE DIFF @See below; RED BLOOD COUNT 2.74 10^6/ul (4.70-6.10); RED CELL DISTRIBUTION WIDTH 20.9 % (11.5-14.5)
[2018-04-23 05:58] LABS: ANION GAP 19 (8-16); BLOOD UREA NITROGEN 62 mg/dl (7-20); CALCIUM 8.2 mg/dl (8.4-10.2); CARBON DIOXIDE 26 mmol/L (21-31); CHLORIDE 99 mmol/L (97-110); CREATININE 2.44 mg/dl (0.61-1.24); GLUCOSE 84 mg/dl (70-220); PHOSPHORUS 7.7 mg/dl (2.5-4.9); POTASSIUM 3.4 mmol/L (3.5-5.1); SODIUM 141 mmol/L (135-144)
[2018-04-23] MEDS: METOCLOPRAMIDE 10 MG INJ IV ×3 (06:02→23:06)
[2018-04-23] MEDS: LEVOTHYROXINE 100 MCG VIAL IV (06:02)
[2018-04-23] MEDS: HYDROCORTISONE 100 MG INJ IV ×3 (06:02→23:05)
[2018-04-23] MEDS: PANTOPRAZOLE 40 MG INJ IV (06:02)
[2018-04-23] MEDS: ERYTHROMYCIN ETHYL SUCC (80 MG/ML PO SYG) GTB ×3 (06:03→23:07)
[2018-04-23] MEDS: LEVETIRACETAM 500 MG (PMX) 100 ML IVPB ×2 (08:46→23:33)
[2018-04-23] MEDS: MEROPENEM 500MG/50 ML (PMX) 50 ML IVPB ×2 (08:46→23:07)
[2018-04-23] MEDS: VALPROIC ACID LIQUID CUP 250 MG/5 ML CUP GTB (08:46)
[2018-04-23] MEDS: POLYETHYLENE GLYCOL 17 GM PACKET NGT (08:47)
[2018-04-23] MEDS: COLLAGENASE 5 GM (UD JAR) TOP (08:47)
[2018-04-23] MEDS: POTASSIUM CHLORIDE 20 MEQ POWDER FOR ORAL SOLN GTB (08:47)
[2018-04-23] MEDS: BALSAM PERU/CASTOR OIL 60 GM TUBE TOP ×2 (08:47→23:09)
[2018-04-23] MEDS: HEPARIN 5,000 UNIT/0.5 ML VIAL SC ×2 (09:29→23:09)
[2018-04-23] MEDS: DIVALPROEX SPRINKLE 125 MG CAP PO (23:05)
[2018-04-23] MEDS: ATORVASTATIN 20 MG TAB GTB (23:06)
[2018-04-23] MEDS: CALCITRIOL (1 MCG/ML PO SYG) PO (23:07)
[2018-04-23] MEDS: TOBRAMYCIN 100 MG in SOD CHLORIDE 0.9% 100 ML IVPB (23:07)
[2018-04-24] MEDS: VASOPRESSIN 60 UNIT in DEXTROSE 5% 57 ML IV ×2 (02:00→14:00)
[2018-04-24] MEDS: IPRATROPIUM (HFA) 12.9 GM INHALER INH ×6 (02:29→20:33)
[2018-04-24] MEDS: ALBUTEROL HFA 8 GM INHALER INH ×6 (02:29→20:34)
[2018-04-24 05:08] LABS: ADD MAN DIFF? NO
[2018-04-24 05:13] LABS: BASOPHILS % 0.1 % (0.0-2.0); EOSINOPHILS % 0.3 % (0.0-7.0); HEMOGLOBIN 8.3 g/dl (14.0-18.0); LYMPHOCYTES # 0.7 10^3/ul (0.8-2.9); LYMPHOCYTES % 9.8 % (15.0-51.0); MEAN CORPUSCULAR HEMOGLOBIN 30.3 pg (29.0-33.0); MEAN CORPUSCULAR HGB CONC 30.7 g/dl (32.0-37.0); MEAN CORPUSCULAR VOLUME 98.5 fl (82.0-101.0); MEAN PLATELET VOLUME 12.1 fl (7.4-10.4); MONOCYTE # 0.8 10^3/ul (0.3-0.9); MONOCYTES % 10.2 % (0.0-11.0); NEUTROPHIL # 5.9 10^3/ul (1.6-7.5); NEUTROPHILS % 79.1 % (39.0-77.0); NUCLEATED RED BLOOD CELLS # 0.1 10^3/ul (0.0-0.0); NUCLEATED RED BLOOD CELLS% 1.1 /100WBC (0.0-0.0); PLATELET COUNT 134 10^3/UL (140-415); POSITIVE DIFF @See below; RED BLOOD COUNT 2.74 10^6/ul (4.70-6.10); RED CELL DISTRIBUTION WIDTH 20.5 % (11.5-14.5)
[2018-04-24 05:13] LABS: WHITE BLOOD COUNT 7.5 10^3/ul (4.8-10.8)
[2018-04-24 05:42] LABS: ANION GAP 17 (8-16); BLOOD UREA NITROGEN 45 mg/dl (7-20); CALCIUM 7.9 mg/dl (8.4-10.2); CARBON DIOXIDE 27 mmol/L (21-31); CHLORIDE 100 mmol/L (97-110); CREATININE 1.78 mg/dl (0.61-1.24); GLUCOSE 103 mg/dl (70-220); POTASSIUM 3.2 mmol/L (3.5-5.1); SODIUM 141 mmol/L (135-144)
[2018-04-24 05:43] LABS: VANCOMYCIN,RANDOM 16.5 ug/ml
[2018-04-24] MEDS: PANTOPRAZOLE 40 MG INJ IV (06:14)
[2018-04-24] MEDS: LEVOTHYROXINE 100 MCG VIAL IV (06:14)
[2018-04-24] MEDS: METOCLOPRAMIDE 10 MG INJ IV ×3 (06:15→21:52)
[2018-04-24] MEDS: HYDROCORTISONE 100 MG INJ IV ×3 (06:15→21:52)
[2018-04-24] MEDS: ERYTHROMYCIN ETHYL SUCC (80 MG/ML PO SYG) GTB (06:26)
[2018-04-24 07:52] LABS: ANISOCYTOSIS 1+ (0-0); BAND NEUTROPHILS #M 0.1 10^3/ul (0.0-0.6); BAND NEUTROPHILS % (M) 2 % (0-4); GIANT THROMBO% (M) 4 % (0-0); LYMPHOCYTES #M 0.5 10^3/ul (0.8-2.9); LYMPHOCYTES % (M) 7 % (15-51); MONOCYTE #M 0.3 10^3/ul (0.3-0.9); MONOCYTES % (M) 5 % (0-11); PLATELET ESTIMATE DECREASED; POLYCHROMASIA 1+ (0-0); SEG NEUT #M 6.5 10^3/ul (1.6-7.5); SEGMENTED NEUTROPHILS (M) % 86 % (39-77); SMUDGE%M 20 % (0-0); SPHEROCYTES 1+ (0-0); TARGET CELLS 1+ (0-0)
[2018-04-24] MEDS: POLYETHYLENE GLYCOL 17 GM PACKET NGT (08:13)
[2018-04-24] MEDS: VALPROIC ACID LIQUID CUP 250 MG/5 ML CUP GTB (08:13)
[2018-04-24] MEDS: POTASSIUM CHLORIDE 20 MEQ POWDER FOR ORAL SOLN GTB (08:13)
[2018-04-24] MEDS: HEPARIN 5,000 UNIT/0.5 ML VIAL SC ×2 (08:14→21:07)
[2018-04-24] MEDS: COLLAGENASE 5 GM (UD JAR) TOP (08:14)
[2018-04-24] MEDS: BALSAM PERU/CASTOR OIL 60 GM TUBE TOP ×2 (08:14→21:01)
[2018-04-24] MEDS: MEROPENEM 500MG/50 ML (PMX) 50 ML IVPB ×2 (08:33→21:00)
[2018-04-24] MEDS: LEVETIRACETAM 500 MG (PMX) 100 ML IVPB ×2 (10:23→21:00)
[2018-04-24] MEDS: VANCOMYCIN 1 GM 250 ML IVPB (17:37)
[2018-04-24] MEDS: DIVALPROEX SPRINKLE 125 MG CAP PO (21:00)
[2018-04-24] MEDS: ATORVASTATIN 20 MG TAB GTB (21:00)
[2018-04-25] MEDS: IPRATROPIUM (HFA) 12.9 GM INHALER INH ×6 (01:46→21:00)
[2018-04-25] MEDS: ALBUTEROL HFA 8 GM INHALER INH ×6 (01:46→21:00)
[2018-04-25] MEDS: VASOPRESSIN 60 UNIT in DEXTROSE 5% 57 ML IV ×2 (02:00→13:57)
[2018-04-25 05:09] LABS: ADD MAN DIFF? NO
[2018-04-25 05:13] LABS: BASOPHILS % 0.1 % (0.0-2.0); EOSINOPHILS % 0.1 % (0.0-7.0); HEMATOCRIT 27.9 % (42.0-52.0); HEMOGLOBIN 8.3 g/dl (14.0-18.0); LYMPHOCYTES # 0.9 10^3/ul (0.8-2.9); LYMPHOCYTES % 13.4 % (15.0-51.0); MEAN CORPUSCULAR HEMOGLOBIN 29.7 pg (29.0-33.0); MEAN CORPUSCULAR HGB CONC 29.7 g/dl (32.0-37.0); MONOCYTE # 0.7 10^3/ul (0.3-0.9); MONOCYTES % 9.3 % (0.0-11.0); NEUTROPHIL # 5.4 10^3/ul (1.6-7.5); NEUTROPHILS % 76.4 % (39.0-77.0); NUCLEATED RED BLOOD CELLS # 0.1 10^3/ul (0.0-0.0); NUCLEATED RED BLOOD CELLS% 0.7 /100WBC (0.0-0.0); PLATELET COUNT 136 10^3/UL (140-415); RED BLOOD COUNT 2.79 10^6/ul (4.70-6.10); RED CELL DISTRIBUTION WIDTH 19.7 % (11.5-14.5)
[2018-04-25] MEDS: HYDROCORTISONE 100 MG INJ IV ×2 (05:19→14:08)
[2018-04-25] MEDS: METOCLOPRAMIDE 10 MG INJ IV ×2 (05:19→14:08)
[2018-04-25] MEDS: LEVOTHYROXINE 100 MCG VIAL IV (05:19)
[2018-04-25] MEDS: PANTOPRAZOLE 40 MG INJ IV (05:19)
[2018-04-25 05:51] LABS: ANION GAP 15 (8-16); BLOOD UREA NITROGEN 60 mg/dl (7-20); CARBON DIOXIDE 24 mmol/L (21-31); CHLORIDE 102 mmol/L (97-110); CREATININE 2.15 mg/dl (0.61-1.24); GLUCOSE 106 mg/dl (70-220); MAGNESIUM 2.1 mg/dl (1.7-2.5); PHOSPHORUS 6.3 mg/dl (2.5-4.9); POTASSIUM 3.2 mmol/L (3.5-5.1); SODIUM 138 mmol/L (135-144)
[2018-04-25] MEDS: POLYETHYLENE GLYCOL 17 GM PACKET NGT (08:27)
[2018-04-25] MEDS: VALPROIC ACID LIQUID CUP 250 MG/5 ML CUP GTB (08:27)
[2018-04-25] MEDS: POTASSIUM CHLORIDE 20 MEQ POWDER FOR ORAL SOLN GTB (08:27)
[2018-04-25] MEDS: LEVETIRACETAM 500 MG (PMX) 100 ML IVPB (08:27)
[2018-04-25] MEDS: MEROPENEM 500MG/50 ML (PMX) 50 ML IVPB (08:27)
[2018-04-25] MEDS: COLLAGENASE 5 GM (UD JAR) TOP (08:27)
[2018-04-25] MEDS: HEPARIN 5,000 UNIT/0.5 ML VIAL SC ×2 (08:28→21:47)
[2018-04-25] MEDS: BALSAM PERU/CASTOR OIL 60 GM TUBE TOP ×2 (08:28→21:48)
[2018-04-25] MEDS: EPOETIN 10000 UNITS/1 ML INJ (ESRD) SC (17:53)
[2018-04-25] MEDS: ATORVASTATIN 20 MG TAB GTB (21:45)
[2018-04-25] MEDS: DIVALPROEX SPRINKLE 125 MG CAP PO (21:46)
[2018-04-25] MEDS: CALCITRIOL (1 MCG/ML PO SYG) PO (22:30)
[2018-04-26] MEDS: METOCLOPRAMIDE 10 MG INJ IV ×4 (00:39→21:25)
[2018-04-26] MEDS: HYDROCORTISONE 100 MG INJ IV ×4 (00:40→21:25)
[2018-04-26] MEDS: ALBUTEROL HFA 8 GM INHALER INH ×6 (01:24→21:18)
[2018-04-26] MEDS: IPRATROPIUM (HFA) 12.9 GM INHALER INH ×6 (01:25→21:18)
[2018-04-26] MEDS: LEVETIRACETAM 500 MG (PMX) 100 ML IVPB ×3 (02:25→21:30)
[2018-04-26] MEDS: MEROPENEM 500MG/50 ML (PMX) 50 ML IVPB ×3 (02:56→21:30)
[2018-04-26] MEDS: PANTOPRAZOLE 40 MG INJ IV (05:59)
[2018-04-26 06:05] LABS: ADD MAN DIFF? NO
[2018-04-26 06:14] LABS: WHITE BLOOD COUNT 6.2 10^3/ul (4.8-10.8)
[2018-04-26 06:14] LABS: BASOPHILS % 0.2 % (0.0-2.0); HEMATOCRIT 28.3 % (42.0-52.0); HEMOGLOBIN 8.5 g/dl (14.0-18.0); LYMPHOCYTES # 0.8 10^3/ul (0.8-2.9); LYMPHOCYTES % 12.3 % (15.0-51.0); MEAN CORPUSCULAR HEMOGLOBIN 30.1 pg (29.0-33.0); MEAN CORPUSCULAR VOLUME 100.4 fl (82.0-101.0); MEAN PLATELET VOLUME 12.3 fl (7.4-10.4); MONOCYTE # 0.5 10^3/ul (0.3-0.9); MONOCYTES % 7.8 % (0.0-11.0); NEUTROPHIL # 4.9 10^3/ul (1.6-7.5); NEUTROPHILS % 79.1 % (39.0-77.0); NUCLEATED RED BLOOD CELLS # 0.1 10^3/ul (0.0-0.0); NUCLEATED RED BLOOD CELLS% 0.8 /100WBC (0.0-0.0); PLATELET COUNT 108 10^3/UL (140-415); RED BLOOD COUNT 2.82 10^6/ul (4.70-6.10); RED CELL DISTRIBUTION WIDTH 19.6 % (11.5-14.5)
[2018-04-26] MEDS: LEVOTHYROXINE 100 MCG VIAL IV (06:28)
[2018-04-26 06:38] LABS: ANION GAP 13 (8-16); BLOOD UREA NITROGEN 39 mg/dl (7-20); CALCIUM 7.9 mg/dl (8.4-10.2); CARBON DIOXIDE 28 mmol/L (21-31); CHLORIDE 104 mmol/L (97-110); CREATININE 1.57 mg/dl (0.61-1.24); GLUCOSE 92 mg/dl (70-220); MAGNESIUM 1.9 mg/dl (1.7-2.5); PHOSPHORUS 4.4 mg/dl (2.5-4.9); POTASSIUM 3.4 mmol/L (3.5-5.1); SODIUM 142 mmol/L (135-144)
[2018-04-26] MEDS: VALPROIC ACID LIQUID CUP 250 MG/5 ML CUP GTB (08:17)
[2018-04-26] MEDS: COLLAGENASE 5 GM (UD JAR) TOP (08:17)
[2018-04-26] MEDS: POLYETHYLENE GLYCOL 17 GM PACKET NGT (08:17)
[2018-04-26] MEDS: BALSAM PERU/CASTOR OIL 60 GM TUBE TOP ×2 (08:18→21:27)
[2018-04-26] MEDS: HEPARIN 5,000 UNIT/0.5 ML VIAL SC ×2 (08:26→21:28)
[2018-04-26] MEDS: POTASSIUM CHLORIDE (SR) 10 MEQ TAB PO (08:30)
[2018-04-26] MEDS: DIVALPROEX SPRINKLE 125 MG CAP PO (21:25)
[2018-04-26] MEDS: ATORVASTATIN 20 MG TAB GTB (21:25)
[2018-04-27] MEDS: IPRATROPIUM (HFA) 12.9 GM INHALER INH ×6 (02:20→20:19)
[2018-04-27] MEDS: ALBUTEROL HFA 8 GM INHALER INH ×6 (02:21→20:19)
[2018-04-27] MEDS: METOCLOPRAMIDE 10 MG INJ IV ×3 (06:32→22:05)
[2018-04-27] MEDS: HYDROCORTISONE 100 MG INJ IV (06:33)
[2018-04-27] MEDS: PANTOPRAZOLE 40 MG INJ IV (06:33)
[2018-04-27] MEDS: LEVOTHYROXINE 100 MCG VIAL IV (06:35)
[2018-04-27] MEDS: POLYETHYLENE GLYCOL 17 GM PACKET NGT (09:38)
[2018-04-27] MEDS: MEROPENEM 500MG/50 ML (PMX) 50 ML IVPB ×2 (09:38→22:04)
[2018-04-27] MEDS: COLLAGENASE 5 GM (UD JAR) TOP (09:38)
[2018-04-27] MEDS: VALPROIC ACID LIQUID CUP 250 MG/5 ML CUP GTB (09:38)
[2018-04-27] MEDS: BALSAM PERU/CASTOR OIL 60 GM TUBE TOP ×2 (09:38→21:00)
[2018-04-27] MEDS: LEVETIRACETAM 500 MG (PMX) 100 ML IVPB ×2 (09:38→22:05)
[2018-04-27] MEDS: HEPARIN 5,000 UNIT/0.5 ML VIAL SC ×2 (10:13→22:07)
[2018-04-27] MEDS: TOBRAMYCIN 100 MG in SOD CHLORIDE 0.9% 100 ML IVPB (12:38)
[2018-04-27] MEDS: VANCOMYCIN 750 MG in SOD CHLORIDE 0.9% 150 ML IVPB (14:49)
[2018-04-27] MEDS: DIVALPROEX SPRINKLE 125 MG CAP PO (22:05)
[2018-04-27] MEDS: ATORVASTATIN 20 MG TAB GTB (22:05)
[2018-04-27] MEDS: CALCITRIOL (1 MCG/ML PO SYG) PO (22:06)
[2018-04-28] MEDS: ALBUTEROL HFA 8 GM INHALER INH ×6 (01:47→20:05)
[2018-04-28] MEDS: IPRATROPIUM (HFA) 12.9 GM INHALER INH ×6 (01:47→20:05)
[2018-04-28] MEDS: METOCLOPRAMIDE 10 MG INJ IV ×3 (06:34→20:50)
[2018-04-28] MEDS: LEVOTHYROXINE 100 MCG VIAL IV (06:34)
[2018-04-28] MEDS: PANTOPRAZOLE 40 MG INJ IV (06:34)
[2018-04-28] MEDS: MEROPENEM 500MG/50 ML (PMX) 50 ML IVPB ×2 (08:22→20:50)
[2018-04-28] MEDS: predniSONE 20 MG TAB GTB (08:23)
[2018-04-28] MEDS: COLLAGENASE 5 GM (UD JAR) TOP (08:23)
[2018-04-28] MEDS: LEVETIRACETAM 500 MG (PMX) 100 ML IVPB ×2 (08:23→20:50)
[2018-04-28] MEDS: VALPROIC ACID LIQUID CUP 250 MG/5 ML CUP GTB (08:23)
[2018-04-28] MEDS: BALSAM PERU/CASTOR OIL 60 GM TUBE TOP ×2 (08:24→20:51)
[2018-04-28] MEDS: POLYETHYLENE GLYCOL 17 GM PACKET NGT (08:27)
[2018-04-28] MEDS: HEPARIN 5,000 UNIT/0.5 ML VIAL SC ×2 (08:37→21:05)
[2018-04-28] MEDS: EPOETIN 10000 UNITS/1 ML INJ (ESRD) SC (17:09)
[2018-04-28] MEDS: ATORVASTATIN 20 MG TAB GTB (20:50)
[2018-04-28] MEDS: DIVALPROEX SPRINKLE 125 MG CAP PO (21:05)
[2018-04-29] MEDS: ALBUTEROL HFA 8 GM INHALER INH ×6 (00:03→21:25)
[2018-04-29] MEDS: IPRATROPIUM (HFA) 12.9 GM INHALER INH ×6 (00:03→21:25)
[2018-04-29 05:39] LABS: ADD MAN DIFF? NO
[2018-04-29 05:45] LABS: WHITE BLOOD COUNT 5.7 10^3/ul (4.8-10.8)
[2018-04-29 05:45] LABS: BASOPHILS % 0.2 % (0.0-2.0); EOSINOPHILS # 0.1 10^3/ul (0.0-0.5); EOSINOPHILS % 1.4 % (0.0-7.0); HEMATOCRIT 26.9 % (42.0-52.0); LYMPHOCYTES # 1.8 10^3/ul (0.8-2.9); LYMPHOCYTES % 31.4 % (15.0-51.0); MEAN CORPUSCULAR HEMOGLOBIN 30.3 pg (29.0-33.0); MEAN CORPUSCULAR HGB CONC 29.7 g/dl (32.0-37.0); MEAN CORPUSCULAR VOLUME 101.9 fl (82.0-101.0); MONOCYTE # 0.6 10^3/ul (0.3-0.9); MONOCYTES % 9.9 % (0.0-11.0); NEUTROPHIL # 3.3 10^3/ul (1.6-7.5); NEUTROPHILS % 56.8 % (39.0-77.0); NUCLEATED RED BLOOD CELLS% 0.7 /100WBC (0.0-0.0); PLATELET COUNT 121 10^3/UL (140-415); POSITIVE DIFF @See below; RED BLOOD COUNT 2.64 10^6/ul (4.70-6.10); RED CELL DISTRIBUTION WIDTH 19.1 % (11.5-14.5)
[2018-04-29 06:14] LABS: ANION GAP 14 (8-16); BLOOD UREA NITROGEN 77 mg/dl (7-20); CARBON DIOXIDE 24 mmol/L (21-31); CHLORIDE 106 mmol/L (97-110); CREATININE 2.65 mg/dl (0.61-1.24); GLUCOSE 95 mg/dl (70-220); PHOSPHORUS 6.2 mg/dl (2.5-4.9); SODIUM 141 mmol/L (135-144)
[2018-04-29] MEDS: PANTOPRAZOLE 40 MG INJ IV (06:33)
[2018-04-29] MEDS: METOCLOPRAMIDE 10 MG INJ IV ×3 (06:33→22:04)
[2018-04-29] MEDS: LEVOTHYROXINE 100 MCG VIAL IV (06:33)
[2018-04-29 06:39] LABS: POTASSIUM 2.7 mmol/L (3.5-5.1)
[2018-04-29 08:49] LABS: ANISOCYTOSIS 1+ (0-0); BAND NEUTROPHILS #M 0.5 10^3/ul (0.0-0.6); BAND NEUTROPHILS % (M) 9 % (0-4); EOSINOPHILS % (M) 2 % (0-7); GIANT THROMBO% (M) 1 % (0-0); LYMPHOCYTES #M 2.1 10^3/ul (0.8-2.9); LYMPHOCYTES % (M) 38 % (15-51); MONOCYTE #M 0.2 10^3/ul (0.3-0.9); MONOCYTES % (M) 4 % (0-11); PLATELET ESTIMATE DECREASED; POLYCHROMASIA 1+ (0-0); SEG NEUT #M 2.7 10^3/ul (1.6-7.5); SEGMENTED NEUTROPHILS (M) % 47 % (39-77); SMUDGE%M 7 % (0-0)
[2018-04-29] MEDS: LEVETIRACETAM 500 MG (PMX) 100 ML IVPB ×2 (09:00→22:02)
[2018-04-29] MEDS: MEROPENEM 500MG/50 ML (PMX) 50 ML IVPB (09:01)
[2018-04-29] MEDS: POTASSIUM CHLORIDE 20 MEQ POWDER FOR ORAL SOLN GTB (09:02)
[2018-04-29] MEDS: VALPROIC ACID LIQUID CUP 250 MG/5 ML CUP GTB (09:02)
[2018-04-29] MEDS: BALSAM PERU/CASTOR OIL 60 GM TUBE TOP ×2 (09:03→21:00)
[2018-04-29] MEDS: predniSONE 20 MG TAB GTB (09:03)
[2018-04-29] MEDS: COLLAGENASE 5 GM (UD JAR) TOP (09:03)
[2018-04-29] MEDS: HEPARIN 5,000 UNIT/0.5 ML VIAL SC (09:13)
[2018-04-29] MEDS: CHOLESTYRAMINE 4 GM PACKET PO (11:51)
[2018-04-29] MEDS: 1/2 NS + KCL 20 MEQ 1,000 ML IV (14:40)
[2018-04-29] MEDS: ALBUMIN HUMAN 25% 100 ML IV (19:51)
[2018-04-29] MEDS: ATORVASTATIN 20 MG TAB GTB (22:02)
[2018-04-29] MEDS: DIVALPROEX SPRINKLE 125 MG CAP PO (22:02)
[2018-04-29] MEDS: CALCITRIOL (1 MCG/ML PO SYG) PO (22:06)
[2018-04-30] MEDS: IPRATROPIUM (HFA) 12.9 GM INHALER INH ×6 (01:48→21:42)
[2018-04-30] MEDS: ALBUTEROL HFA 8 GM INHALER INH ×6 (01:48→21:42)
[2018-04-30 06:18] LABS: ADD MAN DIFF? NO
[2018-04-30] MEDS: LEVOTHYROXINE 100 MCG VIAL IV (06:21)
[2018-04-30] MEDS: PANTOPRAZOLE 40 MG INJ IV (06:22)
[2018-04-30] MEDS: METOCLOPRAMIDE 10 MG INJ IV ×3 (06:22→21:30)
[2018-04-30 06:37] LABS: WHITE BLOOD COUNT 5.4 10^3/ul (4.8-10.8)
[2018-04-30 06:37] LABS: EOSINOPHILS # 0.1 10^3/ul (0.0-0.5); EOSINOPHILS % 1.7 % (0.0-7.0); HEMATOCRIT 28.2 % (42.0-52.0); HEMOGLOBIN 8.4 g/dl (14.0-18.0); LYMPHOCYTES # 1.6 10^3/ul (0.8-2.9); LYMPHOCYTES % 29.9 % (15.0-51.0); MEAN CORPUSCULAR HEMOGLOBIN 30.2 pg (29.0-33.0); MEAN CORPUSCULAR HGB CONC 29.8 g/dl (32.0-37.0); MEAN CORPUSCULAR VOLUME 101.4 fl (82.0-101.0); MEAN PLATELET VOLUME 11.8 fl (7.4-10.4); MONOCYTE # 0.6 10^3/ul (0.3-0.9); MONOCYTES % 10.6 % (0.0-11.0); NEUTROPHIL # 3.1 10^3/ul (1.6-7.5); NEUTROPHILS % 57.6 % (39.0-77.0); NUCLEATED RED BLOOD CELLS% 0.7 /100WBC (0.0-0.0); PLATELET COUNT 110 10^3/UL (140-415); POSITIVE DIFF @See below; RED BLOOD COUNT 2.78 10^6/ul (4.70-6.10); RED CELL DISTRIBUTION WIDTH 18.8 % (11.5-14.5)
[2018-04-30 07:21] LABS: ANION GAP 14 (8-16); BLOOD UREA NITROGEN 47 mg/dl (7-20); CALCIUM 8.2 mg/dl (8.4-10.2); CARBON DIOXIDE 29 mmol/L (21-31); CHLORIDE 101 mmol/L (97-110); CREATININE 1.72 mg/dl (0.61-1.24); GLUCOSE 81 mg/dl (70-220); POTASSIUM 3.2 mmol/L (3.5-5.1); SODIUM 141 mmol/L (135-144)
[2018-04-30 08:04] LABS: ANISOCYTOSIS 1+ (0-0); BAND NEUTROPHILS #M 0.8 10^3/ul (0.0-0.6); BAND NEUTROPHILS % (M) 16 % (0-4); EOSINOPHILS % (M) 3 % (0-7); ERYTHROBLAST% (NRBC) (M) 2 % (0-0); GIANT THROMBO% (M) 1 % (0-0); LYMPHOCYTES #M 1.2 10^3/ul (0.8-2.9); LYMPHOCYTES % (M) 23 % (15-51); MONOCYTE #M 0.4 10^3/ul (0.3-0.9); MONOCYTES % (M) 9 % (0-11); PLATELET ESTIMATE DECREASED; POIKILOCYTOSIS 1+ (0-0); POLYCHROMASIA 1+ (0-0); SEG NEUT #M 2.7 10^3/ul (1.6-7.5); SEGMENTED NEUTROPHILS (M) % 49 % (39-77); SMUDGE%M 48 % (0-0); TARGET CELLS 1+ (0-0)
[2018-04-30] MEDS: HEPARIN 5,000 UNIT/0.5 ML VIAL SC ×2 (08:59→21:42)
[2018-04-30] MEDS: predniSONE 20 MG TAB GTB (09:00)
[2018-04-30] MEDS: LEVETIRACETAM 500 MG (PMX) 100 ML IVPB ×2 (09:00→21:30)
[2018-04-30] MEDS: VALPROIC ACID LIQUID CUP 250 MG/5 ML CUP GTB (09:00)
[2018-04-30] MEDS: CHOLESTYRAMINE 4 GM PACKET PO (09:00)
[2018-04-30] MEDS: COLLAGENASE 5 GM (UD JAR) TOP (09:00)
[2018-04-30] MEDS: POTASSIUM CHLORIDE 20 MEQ POWDER FOR ORAL SOLN GTB (09:00)
[2018-04-30] MEDS: BALSAM PERU/CASTOR OIL 60 GM TUBE TOP ×2 (09:01→21:31)
[2018-04-30] MEDS: LACTOBACILLUS RHAMNOSUS CAP PO ×2 (14:59→21:30)
[2018-04-30] MEDS: EPOETIN 10000 UNITS/1 ML INJ (ESRD) SC (17:55)
[2018-04-30] MEDS: ATORVASTATIN 20 MG TAB GTB (21:30)
[2018-04-30] MEDS: DIVALPROEX SPRINKLE 125 MG CAP PO (21:30)
[2018-05-01] MEDS: ALBUTEROL HFA 8 GM INHALER INH ×6 (01:00→20:55)
[2018-05-01] MEDS: IPRATROPIUM (HFA) 12.9 GM INHALER INH ×6 (01:00→20:55)
[2018-05-01] MEDS: LEVOTHYROXINE 100 MCG VIAL IV (05:42)
[2018-05-01] MEDS: PANTOPRAZOLE 40 MG INJ IV (05:43)
[2018-05-01] MEDS: METOCLOPRAMIDE 10 MG INJ IV ×3 (05:43→22:02)
[2018-05-01 06:20] LABS: ADD MAN DIFF? NO
[2018-05-01 06:27] LABS: WHITE BLOOD COUNT 4.4 10^3/ul (4.8-10.8)
[2018-05-01 06:27] LABS: EOSINOPHILS # 0.1 10^3/ul (0.0-0.5); EOSINOPHILS % 1.4 % (0.0-7.0); HEMATOCRIT 27.5 % (42.0-52.0); LYMPHOCYTES # 1.6 10^3/ul (0.8-2.9); MEAN CORPUSCULAR HEMOGLOBIN 29.7 pg (29.0-33.0); MEAN CORPUSCULAR HGB CONC 29.1 g/dl (32.0-37.0); MEAN CORPUSCULAR VOLUME 102.2 fl (82.0-101.0); MONOCYTE # 0.4 10^3/ul (0.3-0.9); NEUTROPHIL # 2.3 10^3/ul (1.6-7.5); NEUTROPHILS % 50.9 % (39.0-77.0); NUCLEATED RED BLOOD CELLS% 0.9 /100WBC (0.0-0.0); PLATELET COUNT 101 10^3/UL (140-415); POSITIVE DIFF @See below; RED BLOOD COUNT 2.69 10^6/ul (4.70-6.10); RED CELL DISTRIBUTION WIDTH 18.6 % (11.5-14.5)
[2018-05-01 06:49] LABS: ANION GAP 14 (8-16); BLOOD UREA NITROGEN 59 mg/dl (7-20); CALCIUM 8.2 mg/dl (8.4-10.2); CARBON DIOXIDE 27 mmol/L (21-31); CHLORIDE 103 mmol/L (97-110); CREATININE 2.05 mg/dl (0.61-1.24); GLUCOSE 76 mg/dl (70-220); MAGNESIUM 1.9 mg/dl (1.7-2.5); PHOSPHORUS 4.4 mg/dl (2.5-4.9); POTASSIUM 3.7 mmol/L (3.5-5.1); SODIUM 140 mmol/L (135-144)
[2018-05-01 07:18] LABS: ANISOCYTOSIS 1+ (0-0); BAND NEUTROPHILS #M 0.4 10^3/ul (0.0-0.6); BAND NEUTROPHILS % (M) 11 % (0-4); BASOPHILS % (M) 1 % (0-2); EOSINOPHILS % (M) 1 % (0-7); GIANT THROMBO% (M) 12 % (0-0); LYMPHOCYTES #M 1.8 10^3/ul (0.8-2.9); LYMPHOCYTES % (M) 41 % (15-51); METAMYELOCYTES %M 1 % (0-0); MONOCYTES % (M) 2 % (0-11); PLATELET ESTIMATE DECREASED; POLYCHROMASIA 1+ (0-0); PROMYELOCYTES % (M) 2 % (0-0); SEG NEUT #M 1.8 10^3/ul (1.6-7.5); SEGMENTED NEUTROPHILS (M) % 41 % (39-77); SMUDGE%M 9 % (0-0)
[2018-05-01] MEDS: LEVETIRACETAM 500 MG (PMX) 100 ML IVPB ×2 (09:05→22:02)
[2018-05-01] MEDS: CHOLESTYRAMINE 4 GM PACKET PO (09:42)
[2018-05-01] MEDS: predniSONE 20 MG TAB GTB (09:42)
[2018-05-01] MEDS: LACTOBACILLUS RHAMNOSUS CAP PO ×2 (09:42→22:02)
[2018-05-01] MEDS: HEPARIN 5,000 UNIT/0.5 ML VIAL SC ×2 (09:45→23:43)
[2018-05-01] MEDS: COLLAGENASE 5 GM (UD JAR) TOP (09:47)
[2018-05-01] MEDS: BALSAM PERU/CASTOR OIL 60 GM TUBE TOP ×2 (09:59→22:03)
[2018-05-01] MEDS: VALPROIC ACID LIQUID CUP 250 MG/5 ML CUP GTB (10:21)
[2018-05-01] MEDS: DIVALPROEX SPRINKLE 125 MG CAP PO (22:02)
[2018-05-01] MEDS: ATORVASTATIN 20 MG TAB GTB (22:02)
[2018-05-01] MEDS: CALCITRIOL (1 MCG/ML PO SYG) PO (22:04)
[2018-05-02] MEDS: ALBUTEROL HFA 8 GM INHALER INH ×6 (01:01→20:59)
[2018-05-02] MEDS: IPRATROPIUM (HFA) 12.9 GM INHALER INH ×6 (01:01→20:59)
[2018-05-02] MEDS: PANTOPRAZOLE 40 MG INJ IV (05:53)
[2018-05-02] MEDS: METOCLOPRAMIDE 10 MG INJ IV ×3 (05:53→21:31)
[2018-05-02] MEDS: LEVOTHYROXINE 100 MCG VIAL IV (05:53)
[2018-05-02] MEDS: LACTOBACILLUS RHAMNOSUS CAP PO ×2 (08:38→21:31)
[2018-05-02] MEDS: COLLAGENASE 5 GM (UD JAR) TOP (08:38)
[2018-05-02] MEDS: predniSONE 20 MG TAB GTB (08:38)
[2018-05-02] MEDS: CHOLESTYRAMINE 4 GM PACKET PO ×2 (08:38→21:31)
[2018-05-02] MEDS: VALPROIC ACID LIQUID CUP 250 MG/5 ML CUP GTB (08:38)
[2018-05-02] MEDS: BALSAM PERU/CASTOR OIL 60 GM TUBE TOP ×2 (08:39→21:32)
[2018-05-02] MEDS: HEPARIN 5,000 UNIT/0.5 ML VIAL SC ×2 (08:47→21:50)
[2018-05-02] MEDS ORDERED: VANCOMYCIN IV PER PHARMACY XX (11:00)
[2018-05-02] MEDS: LEVETIRACETAM 500 MG (PMX) 100 ML IVPB ×2 (11:47→21:31)
[2018-05-02] MEDS: VANCOMYCIN 750 MG in SOD CHLORIDE 0.9% 150 ML IVPB (13:51)
[2018-05-02] MEDS: EPOETIN 10000 UNITS/1 ML INJ (ESRD) SC (17:54)
[2018-05-02] MEDS: DIVALPROEX SPRINKLE 125 MG CAP PO (21:31)
[2018-05-02] MEDS: ATORVASTATIN 20 MG TAB GTB (21:31)
[2018-05-03] MEDS: IOHEXOL 300MG/ML 30 ML BTL IV
[2018-05-03] MEDS: HEPARIN 1000 UNITS/ML 10 ML INJ INJ
[2018-05-03] MEDS: LIDOCAINE 1% (MPF) 30 ML INJ INJ
[2018-05-03] MEDS: HEPARIN 1000 UNITS/ML 10 ML INJ IRR
[2018-05-03] MEDS: IPRATROPIUM (HFA) 12.9 GM INHALER INH ×6 (01:00→20:10)
[2018-05-03] MEDS: ALBUTEROL HFA 8 GM INHALER INH ×6 (01:00→20:10)
[2018-05-03] MEDS: PANTOPRAZOLE 40 MG INJ IV (05:21)
[2018-05-03] MEDS: METOCLOPRAMIDE 10 MG INJ IV ×3 (05:21→21:48)
[2018-05-03] MEDS: LEVOTHYROXINE 100 MCG VIAL IV (05:21)
[2018-05-03 07:00] LABS: ALANINE AMINOTRANSFERASE 10 IU/L (13-69); ALBUMIN 2.3 g/dl (3.3-4.9); ALBUMIN/GLOBULIN RATIO 0.67; ALKALINE PHOSPHATASE 203 IU/L (42-121); ANION GAP 15 (8-16); ASPARTATE AMINO TRANSFERASE 18 IU/L (15-46); BILIRUBIN,INDIRECT 0.3 mg/dl (0-1.1); BILIRUBIN,TOTAL 0.3 mg/dl (0.2-1.3); BLOOD UREA NITROGEN 53 mg/dl (7-20); CARBON DIOXIDE 27 mmol/L (21-31); CHLORIDE 103 mmol/L (97-110); CREATININE 2.06 mg/dl (0.61-1.24); GLUCOSE 70 mg/dl (70-220); POTASSIUM 3.6 mmol/L (3.5-5.1); SODIUM 141 mmol/L (135-144); TOTAL PROTEIN 5.7 g/dl (6.1-8.1)
[2018-05-03] MEDS ORDERED: CEFAZOLIN 1 GM INJ (07:00)
[2018-05-03] MEDS: LEVETIRACETAM 500 MG (PMX) 100 ML IVPB ×2 (09:14→21:48)
[2018-05-03] MEDS: CHOLESTYRAMINE 4 GM PACKET PO ×2 (09:14→21:40)
[2018-05-03] MEDS: LACTOBACILLUS RHAMNOSUS CAP PO ×2 (09:15→21:40)
[2018-05-03] MEDS: BALSAM PERU/CASTOR OIL 60 GM TUBE TOP ×2 (09:15→21:40)
[2018-05-03] MEDS: predniSONE 20 MG TAB GTB (09:15)
[2018-05-03] MEDS: COLLAGENASE 5 GM (UD JAR) TOP (09:15)
[2018-05-03] MEDS: VALPROIC ACID LIQUID CUP 250 MG/5 ML CUP GTB (09:15)
[2018-05-03] MEDS: HEPARIN 5,000 UNIT/0.5 ML VIAL SC ×2 (09:23→21:42)
[2018-05-03 13:13] LABS: HEMATOCRIT 27.6 % (42.0-52.0); MEAN CORPUSCULAR HEMOGLOBIN 30.1 pg (29.0-33.0); MEAN CORPUSCULAR VOLUME 103.8 fl (82.0-101.0); MEAN PLATELET VOLUME 12.2 fl (7.4-10.4); NUCLEATED RED BLOOD CELLS% 0.7 /100WBC (0.0-0.0); PLATELET COUNT 113 10^3/UL (140-415); POSITIVE DIFF @See below; RED BLOOD COUNT 2.66 10^6/ul (4.70-6.10); RED CELL DISTRIBUTION WIDTH 17.6 % (11.5-14.5)
[2018-05-03 13:13] LABS: WHITE BLOOD COUNT 5.4 10^3/ul (4.8-10.8)
[2018-05-03 13:14] LABS: ADD MAN DIFF? YES
[2018-05-03] MEDS ORDERED: HEPARIN 1000 UNITS/ML 10 ML INJ ×2 (13:39→14:39)
[2018-05-03] MEDS ORDERED: LIDOCAINE 1% (MPF) 30 ML INJ (13:40)
[2018-05-03] MEDS ORDERED: FENTAnyl 50 MCG/ML VIAL IV (14:00)
[2018-05-03] MEDS ORDERED: HYDROmorphONE 1 MG/5 ML IV SYRINGE IV (14:00)
[2018-05-03 14:12] LABS: ANISOCYTOSIS 1+ (0-0); BAND NEUTROPHILS #M 0.9 10^3/ul (0.0-0.6); BAND NEUTROPHILS % (M) 18 % (0-4); ERYTHROBLAST% (NRBC) (M) 1 % (0-0); GIANT THROMBO% (M) 3 % (0-0); LYMPHOCYTES #M 1.5 10^3/ul (0.8-2.9); LYMPHOCYTES % (M) 29 % (15-51); MICROCYTOSIS 1+ (0-0); MONOCYTE #M 0.6 10^3/ul (0.3-0.9); MONOCYTES % (M) 12 % (0-11); PLATELET ESTIMATE DECREASED; POLYCHROMASIA 3+ (0-0); REACTIVE LYMPHOCYTES #M 0.1 10^3/ul (0.0-0.0); REACTIVE LYMPHOCYTES% (M) 3 % (0-0); SEG NEUT #M 2.1 10^3/ul (1.6-7.5); SEGMENTED NEUTROPHILS (M) % 38 % (39-77); SMUDGE%M 10 % (0-0)
[2018-05-03] MEDS ORDERED: IOHEXOL 300MG/ML 30 ML BTL (14:25)
[2018-05-03] MEDS: DIVALPROEX SPRINKLE 125 MG CAP PO (21:40)
[2018-05-03] MEDS: ATORVASTATIN 20 MG TAB GTB (21:40)
[2018-05-03] MEDS: CALCITRIOL (1 MCG/ML PO SYG) PO (21:48)
[2018-05-04] MEDS: ALBUTEROL HFA 8 GM INHALER INH ×6 (00:02→20:03)
[2018-05-04] MEDS: IPRATROPIUM (HFA) 12.9 GM INHALER INH ×6 (00:03→20:03)
[2018-05-04 05:45] LABS: ADD MAN DIFF? NO
[2018-05-04 05:54] LABS: BASOPHILS % 0.2 % (0.0-2.0); EOSINOPHILS # 0.1 10^3/ul (0.0-0.5); HEMATOCRIT 25.9 % (42.0-52.0); HEMOGLOBIN 7.6 g/dl (14.0-18.0); LYMPHOCYTES # 1.5 10^3/ul (0.8-2.9); LYMPHOCYTES % 29.7 % (15.0-51.0); MEAN CORPUSCULAR HEMOGLOBIN 29.5 pg (29.0-33.0); MEAN CORPUSCULAR HGB CONC 29.3 g/dl (32.0-37.0); MEAN CORPUSCULAR VOLUME 100.4 fl (82.0-101.0); MEAN PLATELET VOLUME 12.1 fl (7.4-10.4); MONOCYTE # 0.5 10^3/ul (0.3-0.9); MONOCYTES % 9.2 % (0.0-11.0); NEUTROPHILS % 59.1 % (39.0-77.0); NUCLEATED RED BLOOD CELLS% 0.8 /100WBC (0.0-0.0); PLATELET COUNT 101 10^3/UL (140-415); POSITIVE DIFF @See below; RED BLOOD COUNT 2.58 10^6/ul (4.70-6.10); RED CELL DISTRIBUTION WIDTH 17.4 % (11.5-14.5)
[2018-05-04 05:54] LABS: WHITE BLOOD COUNT 5.1 10^3/ul (4.8-10.8)
[2018-05-04 06:23] LABS: ANION GAP 16 (8-16); BLOOD UREA NITROGEN 62 mg/dl (7-20); CARBON DIOXIDE 27 mmol/L (21-31); CHLORIDE 101 mmol/L (97-110); CREATININE 2.41 mg/dl (0.61-1.24); GLUCOSE 87 mg/dl (70-220); MAGNESIUM 1.9 mg/dl (1.7-2.5); PHOSPHORUS 5.1 mg/dl (2.5-4.9); POTASSIUM 3.2 mmol/L (3.5-5.1); SODIUM 141 mmol/L (135-144)
[2018-05-04] MEDS: LEVOTHYROXINE 100 MCG VIAL IV (06:24)
[2018-05-04] MEDS: PANTOPRAZOLE 40 MG INJ IV (06:24)
[2018-05-04] MEDS: METOCLOPRAMIDE 10 MG INJ IV ×3 (06:24→20:55)
[2018-05-04] MEDS: POTASSIUM CHLORIDE 20 MEQ POWDER FOR ORAL SOLN GTB (08:54)
[2018-05-04] MEDS: COLLAGENASE 5 GM (UD JAR) TOP (08:54)
[2018-05-04] MEDS: LACTOBACILLUS RHAMNOSUS CAP PO ×2 (08:54→20:48)
[2018-05-04] MEDS: CHOLESTYRAMINE 4 GM PACKET PO ×2 (08:55→20:48)
[2018-05-04] MEDS: VALPROIC ACID LIQUID CUP 250 MG/5 ML CUP GTB (08:55)
[2018-05-04] MEDS: LEVETIRACETAM 500 MG (PMX) 100 ML IVPB ×2 (08:55→20:48)
[2018-05-04] MEDS: predniSONE 20 MG TAB GTB (08:55)
[2018-05-04] MEDS: BALSAM PERU/CASTOR OIL 60 GM TUBE TOP ×2 (08:56→20:56)
[2018-05-04] MEDS: HEPARIN 5,000 UNIT/0.5 ML VIAL SC ×2 (09:08→20:52)
[2018-05-04 10:04] LABS: ANISOCYTOSIS 2+ (0-0); BAND NEUTROPHILS #M 0.8 10^3/ul (0.0-0.6); BAND NEUTROPHILS % (M) 17 % (0-4); BASOPHIL #M 0.1 10^3/ul (0.0-0.0); BASOPHILS % (M) 2 % (0-2); EOSINOPHILS % (M) 1 % (0-7); ERYTHROBLAST% (NRBC) (M) 1 % (0-0); GIANT THROMBO% (M) 4 % (0-0); HYPOCHROMASIA 1+ (0-0); LYMPHOCYTES % (M) 20 % (15-51); MONOCYTE #M 0.5 10^3/ul (0.3-0.9); MONOCYTES % (M) 10 % (0-11); PLATELET ESTIMATE DECREASED; POLYCHROMASIA 3+ (0-0); SEG NEUT #M 2.6 10^3/ul (1.6-7.5); SEGMENTED NEUTROPHILS (M) % 50 % (39-77); SMUDGE%M 11 % (0-0)
[2018-05-04 14:50] LABS: ADD MAN DIFF? NO
[2018-05-04 14:54] LABS: ABNORMAL IP MESSAGE 1; BASOPHILS % 0.2 % (0.0-2.0); HEMATOCRIT 23.6 % (42.0-52.0); LYMPHOCYTES # 0.7 10^3/ul (0.8-2.9); LYMPHOCYTES % 13.4 % (15.0-51.0); MEAN CORPUSCULAR HEMOGLOBIN 29.9 pg (29.0-33.0); MEAN CORPUSCULAR HGB CONC 29.7 g/dl (32.0-37.0); MEAN CORPUSCULAR VOLUME 100.9 fl (82.0-101.0); MEAN PLATELET VOLUME 11.4 fl (7.4-10.4); MONOCYTE # 0.4 10^3/ul (0.3-0.9); MONOCYTES % 8.1 % (0.0-11.0); NEUTROPHIL # 3.8 10^3/ul (1.6-7.5); NEUTROPHILS % 77.7 % (39.0-77.0); NUCLEATED RED BLOOD CELLS # 0.1 10^3/ul (0.0-0.0); NUCLEATED RED BLOOD CELLS% 1.2 /100WBC (0.0-0.0); PLATELET COUNT 89 10^3/UL (140-415); POSITIVE DIFF @See below; RED BLOOD COUNT 2.34 10^6/ul (4.70-6.10); RED CELL DISTRIBUTION WIDTH 17.4 % (11.5-14.5)
[2018-05-04 14:54] LABS: WHITE BLOOD COUNT 4.9 10^3/ul (4.8-10.8)
[2018-05-04 15:18] LABS: ANION GAP 15 (8-16); BLOOD UREA NITROGEN 66 mg/dl (7-20); CARBON DIOXIDE 23 mmol/L (21-31); CHLORIDE 103 mmol/L (97-110); CREATININE 2.52 mg/dl (0.61-1.24); GLUCOSE 108 mg/dl (70-220); POTASSIUM 3.8 mmol/L (3.5-5.1); SODIUM 137 mmol/L (135-144)
[2018-05-04 16:00] LABS: ANISOCYTOSIS 1+ (0-0); BAND NEUTROPHILS #M 0.6 10^3/ul (0.0-0.6); BAND NEUTROPHILS % (M) 13 % (0-4); BASOPHIL #M 0.1 10^3/ul (0.0-0.0); BASOPHILS % (M) 3 % (0-2); ERYTHROBLAST% (NRBC) (M) 3 % (0-0); GIANT THROMBO% (M) 4 % (0-0); LYMPHOCYTES #M 0.7 10^3/ul (0.8-2.9); LYMPHOCYTES % (M) 15 % (15-51); MICROCYTOSIS 1+ (0-0); MONOCYTE #M 0.1 10^3/ul (0.3-0.9); MONOCYTES % (M) 3 % (0-11); PLATELET ESTIMATE DECREASED; POIKILOCYTOSIS 2+ (0-0); POLYCHROMASIA 1+ (0-0); SEG NEUT #M 3.3 10^3/ul (1.6-7.5); SEGMENTED NEUTROPHILS (M) % 66 % (39-77); SMUDGE%M 7 % (0-0)
[2018-05-04] MEDS: DIVALPROEX SPRINKLE 125 MG CAP PO (20:48)
[2018-05-04] MEDS: ATORVASTATIN 20 MG TAB GTB (20:48)
[2018-05-05] MEDS: ALBUTEROL HFA 8 GM INHALER INH ×6 (01:45→20:00)
[2018-05-05] MEDS: IPRATROPIUM (HFA) 12.9 GM INHALER INH ×6 (01:46→20:00)
[2018-05-05 03:08] LABS: IMMEDIATE SPIN CROSSMATCH 1 1
[2018-05-05] MEDS: LEVOTHYROXINE 100 MCG VIAL IV (05:09)
[2018-05-05] MEDS: METOCLOPRAMIDE 10 MG INJ IV ×3 (05:11→21:18)
[2018-05-05] MEDS: PANTOPRAZOLE 40 MG INJ IV (05:15)
[2018-05-05] MEDS: LACTOBACILLUS RHAMNOSUS CAP PO ×2 (08:52→21:11)
[2018-05-05] MEDS: LEVETIRACETAM 500 MG (PMX) 100 ML IVPB ×2 (08:52→21:10)
[2018-05-05] MEDS: predniSONE 20 MG TAB GTB (08:52)
[2018-05-05] MEDS: HEPARIN 5,000 UNIT/0.5 ML VIAL SC (08:52)
[2018-05-05] MEDS: CHOLESTYRAMINE 4 GM PACKET PO ×2 (08:52→21:10)
[2018-05-05] MEDS: VALPROIC ACID LIQUID CUP 250 MG/5 ML CUP GTB (08:52)
[2018-05-05] MEDS: COLLAGENASE 5 GM (UD JAR) TOP (08:53)
[2018-05-05] MEDS: BALSAM PERU/CASTOR OIL 60 GM TUBE TOP ×2 (08:54→21:18)
[2018-05-05 09:53] LABS: WHITE BLOOD COUNT 4.8 10^3/ul (4.8-10.8)
[2018-05-05 09:53] LABS: ABNORMAL IP MESSAGE 1; HEMATOCRIT 27.7 % (42.0-52.0); HEMOGLOBIN 8.4 g/dl (14.0-18.0); MEAN CORPUSCULAR HGB CONC 30.3 g/dl (32.0-37.0); MEAN CORPUSCULAR VOLUME 98.9 fl (82.0-101.0); MEAN PLATELET VOLUME 11.4 fl (7.4-10.4); NUCLEATED RED BLOOD CELLS% 1.9 /100WBC (0.0-0.0); POSITIVE DIFF @See below
[2018-05-05 10:03] LABS: PLATELET COUNT 66 10^3/UL (140-415)
[2018-05-05 10:05] LABS: ADD MAN DIFF? YES
[2018-05-05 10:12] LABS: ANION GAP 13 (8-16); BLOOD UREA NITROGEN 39 mg/dl (7-20); CALCIUM 7.8 mg/dl (8.4-10.2); CARBON DIOXIDE 28 mmol/L (21-31); CHLORIDE 106 mmol/L (97-110); CREATININE 1.65 mg/dl (0.61-1.24); GLUCOSE 85 mg/dl (70-220); MAGNESIUM 1.8 mg/dl (1.7-2.5); PHOSPHORUS 3.2 mg/dl (2.5-4.9); POTASSIUM 3.5 mmol/L (3.5-5.1); SODIUM 143 mmol/L (135-144)
[2018-05-05 10:56] LABS: ANISOCYTOSIS 1+ (0-0); BAND NEUTROPHILS #M 1.3 10^3/ul (0.0-0.6); BAND NEUTROPHILS % (M) 28 % (0-4); EOSINOPHILS % (M) 5 % (0-7); ERYTHROBLAST% (NRBC) (M) 4 % (0-0); GIANT THROMBO% (M) 1 % (0-0); LYMPHOCYTES #M 1.2 10^3/ul (0.8-2.9); LYMPHOCYTES % (M) 27 % (15-51); MONOCYTE #M 0.4 10^3/ul (0.3-0.9); MONOCYTES % (M) 9 % (0-11); PLATELET ESTIMATE DECREASED; POLYCHROMASIA 1+ (0-0); REACTIVE LYMPHOCYTES% (M) 2 % (0-0); SEG NEUT #M 1.5 10^3/ul (1.6-7.5); SEGMENTED NEUTROPHILS (M) % 29 % (39-77); SMUDGE%M 28 % (0-0); TARGET CELLS 1+ (0-0)
[2018-05-05] MEDS: EPOETIN 10000 UNITS/1 ML INJ (ESRD) SC (16:42)
[2018-05-05] MEDS: CALCITRIOL (1 MCG/ML PO SYG) PO ×3 (21:00→22:30)
[2018-05-05] MEDS: DIVALPROEX SPRINKLE 125 MG CAP PO (21:11)
[2018-05-05] MEDS: ATORVASTATIN 20 MG TAB GTB (21:11)
[2018-05-06] MEDS: IPRATROPIUM (HFA) 12.9 GM INHALER INH ×6 (02:23→21:24)
[2018-05-06] MEDS: ALBUTEROL HFA 8 GM INHALER INH ×6 (02:23→21:24)
[2018-05-06 05:39] LABS: ADD MAN DIFF? NO
[2018-05-06] MEDS: METOCLOPRAMIDE 10 MG INJ IV ×3 (05:39→23:19)
[2018-05-06] MEDS: LEVOTHYROXINE 100 MCG VIAL IV (05:40)
[2018-05-06] MEDS: PANTOPRAZOLE 40 MG INJ IV (05:41)
[2018-05-06 05:47] LABS: ABNORMAL IP MESSAGE 1; BASOPHILS % 0.2 % (0.0-2.0); EOSINOPHILS % 0.8 % (0.0-7.0); HEMATOCRIT 27.5 % (42.0-52.0); HEMOGLOBIN 8.3 g/dl (14.0-18.0); LYMPHOCYTES # 1.3 10^3/ul (0.8-2.9); LYMPHOCYTES % 26.5 % (15.0-51.0); MEAN CORPUSCULAR HEMOGLOBIN 29.7 pg (29.0-33.0); MEAN CORPUSCULAR HGB CONC 30.2 g/dl (32.0-37.0); MEAN CORPUSCULAR VOLUME 98.6 fl (82.0-101.0); MEAN PLATELET VOLUME 11.1 fl (7.4-10.4); MONOCYTE # 0.5 10^3/ul (0.3-0.9); MONOCYTES % 10.7 % (0.0-11.0); NEUTROPHILS % 61.2 % (39.0-77.0); NUCLEATED RED BLOOD CELLS # 0.1 10^3/ul (0.0-0.0); NUCLEATED RED BLOOD CELLS% 2.8 /100WBC (0.0-0.0); PLATELET COUNT 71 10^3/UL (140-415); POSITIVE DIFF @See below; RED BLOOD COUNT 2.79 10^6/ul (4.70-6.10); RED CELL DISTRIBUTION WIDTH 17.3 % (11.5-14.5)
[2018-05-06 05:47] LABS: WHITE BLOOD COUNT 4.9 10^3/ul (4.8-10.8)
[2018-05-06 06:06] LABS: INR 1.26; PT RATIO 1.3
[2018-05-06 06:28] LABS: ANION GAP 11 (8-16); BLOOD UREA NITROGEN 49 mg/dl (7-20); CALCIUM 8.1 mg/dl (8.4-10.2); CARBON DIOXIDE 26 mmol/L (21-31); CHLORIDE 105 mmol/L (97-110); GLUCOSE 84 mg/dl (70-220); MAGNESIUM 1.9 mg/dl (1.7-2.5); PHOSPHORUS 4.1 mg/dl (2.5-4.9); POTASSIUM 3.6 mmol/L (3.5-5.1); SODIUM 138 mmol/L (135-144)
[2018-05-06 08:06] LABS: LACTATE DEHYDROGENASE 436 IU/L (313-618)
[2018-05-06] MEDS: LEVETIRACETAM 500 MG (PMX) 100 ML IVPB ×2 (09:12→20:53)
[2018-05-06] MEDS: BALSAM PERU/CASTOR OIL 60 GM TUBE TOP ×2 (09:12→20:54)
[2018-05-06] MEDS: LACTOBACILLUS RHAMNOSUS CAP PO ×2 (09:12→23:19)
[2018-05-06] MEDS: COLLAGENASE 5 GM (UD JAR) TOP (09:12)
[2018-05-06] MEDS: CHOLESTYRAMINE 4 GM PACKET PO ×3 (09:12→20:54)
[2018-05-06] MEDS: predniSONE 20 MG TAB GTB (09:12)
[2018-05-06] MEDS: VALPROIC ACID LIQUID CUP 250 MG/5 ML CUP GTB (09:24)
[2018-05-06 15:53] LABS: IRON 30 ug/dl (35-150)
[2018-05-06 16:02] LABS: % IRON SATURATION 18 % SAT (22-52); TOTAL IRON BINDING CAPACITY 165 ug/dl (241-421)
[2018-05-06 16:38] LABS: LACTATE DEHYDROGENASE 391 IU/L (313-618)
[2018-05-06] MEDS: VANCOMYCIN 750 MG in SOD CHLORIDE 0.9% 150 ML IVPB (16:40)
[2018-05-06] MEDS: DIVALPROEX SPRINKLE 125 MG CAP PO (20:53)
[2018-05-06] MEDS: ATORVASTATIN 20 MG TAB GTB (20:54)
[2018-05-07] MEDS: ALBUTEROL HFA 8 GM INHALER INH ×6 (01:23→20:19)
[2018-05-07] MEDS: IPRATROPIUM (HFA) 12.9 GM INHALER INH ×6 (01:24→20:19)
[2018-05-07 06:04] LABS: ADD MAN DIFF? NO
[2018-05-07 06:12] LABS: ABNORMAL IP MESSAGE 1; BASOPHILS % 0.4 % (0.0-2.0); EOSINOPHILS # 0.1 10^3/ul (0.0-0.5); EOSINOPHILS % 1.4 % (0.0-7.0); HEMATOCRIT 27.9 % (42.0-52.0); HEMOGLOBIN 8.3 g/dl (14.0-18.0); LYMPHOCYTES # 1.4 10^3/ul (0.8-2.9); LYMPHOCYTES % 28.4 % (15.0-51.0); MEAN CORPUSCULAR HEMOGLOBIN 29.5 pg (29.0-33.0); MEAN CORPUSCULAR HGB CONC 29.7 g/dl (32.0-37.0); MEAN CORPUSCULAR VOLUME 99.3 fl (82.0-101.0); MEAN PLATELET VOLUME 11.2 fl (7.4-10.4); MONOCYTE # 0.5 10^3/ul (0.3-0.9); MONOCYTES % 9.5 % (0.0-11.0); NEUTROPHILS % 59.5 % (39.0-77.0); NUCLEATED RED BLOOD CELLS # 0.1 10^3/ul (0.0-0.0); NUCLEATED RED BLOOD CELLS% 1.8 /100WBC (0.0-0.0); PLATELET COUNT 59 10^3/UL (140-415); POSITIVE DIFF @See below; RED BLOOD COUNT 2.81 10^6/ul (4.70-6.10); RED CELL DISTRIBUTION WIDTH 17.1 % (11.5-14.5)
[2018-05-07] MEDS: METOCLOPRAMIDE 10 MG INJ IV ×3 (06:26→21:58)
[2018-05-07] MEDS: PANTOPRAZOLE 40 MG INJ IV (06:26)
[2018-05-07] MEDS: LEVOTHYROXINE 100 MCG VIAL IV (06:26)
[2018-05-07 07:20] LABS: ANION GAP 9 (8-16); BLOOD UREA NITROGEN 40 mg/dl (7-20); CARBON DIOXIDE 29 mmol/L (21-31); CHLORIDE 104 mmol/L (97-110); CREATININE 1.68 mg/dl (0.61-1.24); GLUCOSE 76 mg/dl (70-220); POTASSIUM 3.2 mmol/L (3.5-5.1); SODIUM 139 mmol/L (135-144)
[2018-05-07] MEDS: VALPROIC ACID LIQUID CUP 250 MG/5 ML CUP GTB (08:56)
[2018-05-07] MEDS: LEVETIRACETAM 500 MG (PMX) 100 ML IVPB ×2 (08:56→20:15)
[2018-05-07] MEDS: LACTOBACILLUS RHAMNOSUS CAP PO ×2 (08:56→20:14)
[2018-05-07] MEDS: predniSONE 20 MG TAB GTB (08:56)
[2018-05-07] MEDS: CHOLESTYRAMINE 4 GM PACKET PO ×3 (08:56→22:01)
[2018-05-07] MEDS: COLLAGENASE 5 GM (UD JAR) TOP (08:57)
[2018-05-07] MEDS: POTASSIUM CHLORIDE 20 MEQ POWDER FOR ORAL SOLN GTB (08:57)
[2018-05-07] MEDS: BALSAM PERU/CASTOR OIL 60 GM TUBE TOP ×2 (08:57→21:58)
[2018-05-07 09:34] LABS: ANISOCYTOSIS 1+ (0-0); BAND NEUTROPHILS #M 1.1 10^3/ul (0.0-0.6); BAND NEUTROPHILS % (M) 23 % (0-4); EOSINOPHILS % (M) 1 % (0-7); ERYTHROBLAST% (NRBC) (M) 2 % (0-0); HYPOCHROMASIA 1+ (0-0); LYMPHOCYTES #M 1.1 10^3/ul (0.8-2.9); LYMPHOCYTES % (M) 22 % (15-51); MICROCYTOSIS 1+ (0-0); MONOCYTE #M 0.2 10^3/ul (0.3-0.9); MONOCYTES % (M) 5 % (0-11); PLATELET ESTIMATE DECREASED; POLYCHROMASIA 1+ (0-0); SEG NEUT #M 2.6 10^3/ul (1.6-7.5); SEGMENTED NEUTROPHILS (M) % 50 % (39-77); SMUDGE%M 17 % (0-0)
[2018-05-07] MEDS: SOD FERRIC GLUC COMPLX 125 MG in SOD CHLORIDE 0.9% 100 ML IVPB (17:37)
[2018-05-07] MEDS: EPOETIN 10000 UNITS/1 ML INJ (ESRD) SC (17:38)
[2018-05-07] MEDS: DIVALPROEX SPRINKLE 125 MG CAP PO (20:14)
[2018-05-07] MEDS: ATORVASTATIN 20 MG TAB GTB (20:14)
[2018-05-08] MEDS: CALCITRIOL (1 MCG/ML PO SYG) PO (00:56)
[2018-05-08] MEDS: IPRATROPIUM (HFA) 12.9 GM INHALER INH ×6 (01:27→21:14)
[2018-05-08] MEDS: ALBUTEROL HFA 8 GM INHALER INH ×6 (01:27→21:14)
[2018-05-08] MEDS: METOCLOPRAMIDE 10 MG INJ IV ×3 (06:50→21:55)
[2018-05-08] MEDS: PANTOPRAZOLE 40 MG INJ IV (06:51)
[2018-05-08] MEDS: LEVOTHYROXINE 100 MCG VIAL IV (06:51)
[2018-05-08] MEDS: BALSAM PERU/CASTOR OIL 60 GM TUBE TOP ×2 (09:00→21:56)
[2018-05-08] MEDS: COLLAGENASE 5 GM (UD JAR) TOP (09:00)
[2018-05-08] MEDS: CHOLESTYRAMINE 4 GM PACKET PO ×3 (13:00→21:55)
[2018-05-08] MEDS: HEPARIN 1000 UNITS/ML 10 ML INJ CATHETER (14:04)
[2018-05-08] MEDS: LACTOBACILLUS RHAMNOSUS CAP PO ×2 (14:36→21:55)
[2018-05-08] MEDS: VALPROIC ACID LIQUID CUP 250 MG/5 ML CUP GTB (14:36)
[2018-05-08] MEDS: predniSONE 20 MG TAB GTB (14:36)
[2018-05-08] MEDS: LEVETIRACETAM 500 MG (PMX) 100 ML IVPB ×2 (14:36→21:55)
[2018-05-08] MEDS: SOD FERRIC GLUC COMPLX 125 MG in SOD CHLORIDE 0.9% 100 ML IVPB (17:23)
[2018-05-08] MEDS: DIVALPROEX SPRINKLE 125 MG CAP PO (21:55)
[2018-05-08] MEDS: ATORVASTATIN 20 MG TAB GTB (21:55)
[2018-05-09] MEDS: ALBUTEROL HFA 8 GM INHALER INH ×6 (01:33→21:00)
[2018-05-09] MEDS: IPRATROPIUM (HFA) 12.9 GM INHALER INH ×6 (01:33→21:35)
[2018-05-09] MEDS: PANTOPRAZOLE 40 MG INJ IV (06:01)
[2018-05-09] MEDS: LEVOTHYROXINE 100 MCG VIAL IV (06:01)
[2018-05-09] MEDS: METOCLOPRAMIDE 10 MG INJ IV ×3 (06:01→20:54)
[2018-05-09 06:10] LABS: ADD MAN DIFF? NO
[2018-05-09 06:21] LABS: WHITE BLOOD COUNT 5.9 10^3/ul (4.8-10.8)
[2018-05-09 06:21] LABS: ABNORMAL IP MESSAGE 1; BASOPHILS % 0.3 % (0.0-2.0); EOSINOPHILS % 0.3 % (0.0-7.0); HEMATOCRIT 27.9 % (42.0-52.0); HEMOGLOBIN 8.4 g/dl (14.0-18.0); LYMPHOCYTES % 17.4 % (15.0-51.0); MEAN CORPUSCULAR HEMOGLOBIN 30.5 pg (29.0-33.0); MEAN CORPUSCULAR HGB CONC 30.1 g/dl (32.0-37.0); MEAN CORPUSCULAR VOLUME 101.5 fl (82.0-101.0); MEAN PLATELET VOLUME 12.1 fl (7.4-10.4); MONOCYTE # 0.6 10^3/ul (0.3-0.9); MONOCYTES % 10.7 % (0.0-11.0); NEUTROPHIL # 4.1 10^3/ul (1.6-7.5); NEUTROPHILS % 70.3 % (39.0-77.0); NUCLEATED RED BLOOD CELLS # 0.1 10^3/ul (0.0-0.0); NUCLEATED RED BLOOD CELLS% 1.5 /100WBC (0.0-0.0); PLATELET COUNT 66 10^3/UL (140-415); POSITIVE DIFF @See below; RED BLOOD COUNT 2.75 10^6/ul (4.70-6.10); RED CELL DISTRIBUTION WIDTH 17.2 % (11.5-14.5)
[2018-05-09 06:55] LABS: ANION GAP 12 (8-16); BLOOD UREA NITROGEN 38 mg/dl (7-20); CARBON DIOXIDE 26 mmol/L (21-31); CHLORIDE 106 mmol/L (97-110); CREATININE 1.68 mg/dl (0.61-1.24); GLUCOSE 84 mg/dl (70-220); MAGNESIUM 1.9 mg/dl (1.7-2.5); PHOSPHORUS 3.3 mg/dl (2.5-4.9); POTASSIUM 3.6 mmol/L (3.5-5.1); SODIUM 140 mmol/L (135-144)
[2018-05-09 07:42] LABS: HEPARIN INDUCED PLATELET AB WEAK POSITIVE (NEGATIVE)
[2018-05-09] MEDS: COLLAGENASE 5 GM (UD JAR) TOP (09:00)
[2018-05-09] MEDS: LEVETIRACETAM 500 MG (PMX) 100 ML IVPB ×2 (09:50→20:53)
[2018-05-09] MEDS: predniSONE 20 MG TAB GTB (09:53)
[2018-05-09] MEDS: CHOLESTYRAMINE 4 GM PACKET PO ×3 (09:53→20:53)
[2018-05-09] MEDS: VALPROIC ACID LIQUID CUP 250 MG/5 ML CUP GTB (09:53)
[2018-05-09] MEDS: LACTOBACILLUS RHAMNOSUS CAP PO ×2 (09:53→20:36)
[2018-05-09] MEDS: BALSAM PERU/CASTOR OIL 60 GM TUBE TOP ×2 (14:00→20:53)
[2018-05-09] MEDS: SOD FERRIC GLUC COMPLX 125 MG in SOD CHLORIDE 0.9% 100 ML IVPB (17:39)
[2018-05-09] MEDS: D5-NS + KCL 20 MEQ 1,000 ML IV (17:39)
[2018-05-09] MEDS: EPOETIN 10000 UNITS/1 ML INJ (ESRD) SC (17:40)
[2018-05-09] MEDS ORDERED: ONDANSETRON 4 MG INJ (20:34)
[2018-05-09] MEDS: DIVALPROEX SPRINKLE 125 MG CAP PO (20:36)
[2018-05-09] MEDS: ATORVASTATIN 20 MG TAB GTB (20:37)
[2018-05-09] MEDS: SOD CHLORIDE 0.9% 500 ML IV ×2 (20:45→21:00)
[2018-05-09] MEDS: ONDANSETRON 4 MG INJ IV (20:53)
[2018-05-09] MEDS: CALCITRIOL (1 MCG/ML PO SYG) PO (20:59)
[2018-05-09] MEDS: METOPROLOL 5 MG INJ IV (22:34)
[2018-05-10] MEDS: ALBUTEROL HFA 8 GM INHALER INH ×6 (01:00→20:04)
[2018-05-10] MEDS: SOD CHLORIDE 0.9% 500 ML IV ×3 (01:30→08:59)
[2018-05-10] MEDS: IPRATROPIUM (HFA) 12.9 GM INHALER INH ×6 (01:39→20:03)
[2018-05-10] MEDS: METOPROLOL 5 MG INJ IV (02:39)
[2018-05-10] MEDS: D5-NS + KCL 20 MEQ 1,000 ML IV (05:48)
[2018-05-10] MEDS: LEVOTHYROXINE 100 MCG VIAL IV (06:11)
[2018-05-10] MEDS: PANTOPRAZOLE 40 MG INJ IV (06:11)
[2018-05-10] MEDS: METOCLOPRAMIDE 10 MG INJ IV ×3 (06:11→21:36)
[2018-05-10] MEDS ORDERED: DEXTROSE 50% 50 ML SYRINGE (07:35)
[2018-05-10] MEDS ORDERED: ALBUMIN HUMAN 25% 100 ML (07:38)
[2018-05-10 07:51] LABS: ANION GAP 16 (8-16); BLOOD UREA NITROGEN 44 mg/dl (7-20); CALCIUM 7.8 mg/dl (8.4-10.2); CARBON DIOXIDE 19 mmol/L (21-31); CHLORIDE 109 mmol/L (97-110); CREATININE 2.08 mg/dl (0.61-1.24); SODIUM 140 mmol/L (135-144)
[2018-05-10 07:54] LABS: GLUCOSE 34 mg/dl (70-220)
[2018-05-10] MEDS ORDERED: NORepinephrine 8MG/250 ML (PMX 250 ML (08:19)
[2018-05-10] MEDS: DEXTROSE 50% 50 ML SYRINGE IV (08:59)
[2018-05-10] MEDS: ALBUMIN HUMAN 25% 100 ML IV (08:59)
[2018-05-10] MEDS: predniSONE 20 MG TAB GTB (09:00)
[2018-05-10] MEDS: VALPROIC ACID LIQUID CUP 250 MG/5 ML CUP GTB (09:58)
[2018-05-10] MEDS: COLLAGENASE 5 GM (UD JAR) TOP (09:58)
[2018-05-10] MEDS: LACTOBACILLUS RHAMNOSUS CAP PO ×2 (09:59→21:37)
[2018-05-10] MEDS: HYDROCORTISONE 100 MG INJ IV ×3 (09:59→21:36)
[2018-05-10] MEDS: CHOLESTYRAMINE 4 GM PACKET PO ×3 (09:59→21:37)
[2018-05-10 10:00] LABS: ABNORMAL IP MESSAGE 1; HEMATOCRIT 29.6 % (42.0-52.0); HEMOGLOBIN 8.6 g/dl (14.0-18.0); MEAN CORPUSCULAR HEMOGLOBIN 30.3 pg (29.0-33.0); MEAN CORPUSCULAR HGB CONC 29.1 g/dl (32.0-37.0); MEAN CORPUSCULAR VOLUME 104.2 fl (82.0-101.0); NUCLEATED RED BLOOD CELLS% 4.2 /100WBC (0.0-0.0); PLATELET COUNT 52 10^3/UL (140-415); POSITIVE DIFF @See below; RED BLOOD COUNT 2.84 10^6/ul (4.70-6.10); RED CELL DISTRIBUTION WIDTH 17.3 % (11.5-14.5)
[2018-05-10 10:00] LABS: WHITE BLOOD COUNT 20.1 10^3/ul (4.8-10.8)
[2018-05-10] MEDS: NORepinephrine 8MG/250 ML (PMX 250 ML IV (10:00)
[2018-05-10 10:01] LABS: ADD MAN DIFF? YES
[2018-05-10] MEDS: DEXTROSE 5%-0.9% NACL 1,000 ML IV ×2 (10:02→23:18)
[2018-05-10 11:06] LABS: ANISOCYTOSIS 1+ (0-0); BAND NEUTROPHILS #M 2.8 10^3/ul (0.0-0.6); BAND NEUTROPHILS % (M) 14 % (0-4); ERYTHROBLAST% (NRBC) (M) 13 % (0-0); LYMPHOCYTES #M 2.8 10^3/ul (0.8-2.9); LYMPHOCYTES % (M) 14 % (15-51); MONOCYTES % (M) 5 % (0-11); MYELOCYTES #M 0.2 10^3/ul (0.0-0.0); MYELOCYTES % (M) 1 % (0-0); PLATELET ESTIMATE DECREASED; POLYCHROMASIA 3+ (0-0); REACTIVE LYMPHOCYTES #M 0.6 10^3/ul (0.0-0.0); REACTIVE LYMPHOCYTES% (M) 3 % (0-0); SEG NEUT #M 13.2 10^3/ul (1.6-7.5); SEGMENTED NEUTROPHILS (M) % 63 % (39-77); SMUDGE%M 11 % (0-0)
[2018-05-10] MEDS ORDERED: AMIKACIN IV PER PHARMACY XX (13:00)
[2018-05-10] MEDS: BALSAM PERU/CASTOR OIL 60 GM TUBE TOP ×2 (13:45→21:36)
[2018-05-10] MEDS: metroNIDAZOLE 500 MG TAB PO ×2 (13:45→21:37)
[2018-05-10] MEDS: LEVETIRACETAM 500 MG (PMX) 100 ML IVPB ×2 (13:45→22:50)
[2018-05-10] MEDS: LINEZOLID 600 MG/D5W (PMX) 300 ML IVPB ×2 (13:45→21:37)
[2018-05-10] MEDS: SOD CHLORIDE 0.9% IVPB (16:12)
[2018-05-10] MEDS: AMIKACIN IVPB (16:12)
[2018-05-10] MEDS: SOD FERRIC GLUC COMPLX 125 MG in SOD CHLORIDE 0.9% 100 ML IVPB (17:22)
[2018-05-10] MEDS: ATORVASTATIN 20 MG TAB GTB (21:00)
[2018-05-10] MEDS: DIVALPROEX SPRINKLE 125 MG CAP PO (22:50)
[2018-05-11] MEDS: ALBUTEROL HFA 8 GM INHALER INH ×6 (00:20→20:15)
[2018-05-11] MEDS: IPRATROPIUM (HFA) 12.9 GM INHALER INH ×6 (00:20→20:15)
[2018-05-11] MEDS: DEXTROSE 5%-0.9% NACL 1,000 ML IV ×2 (04:17→18:33)
[2018-05-11 05:13] LABS: WHITE BLOOD COUNT 26.9 10^3/ul (4.8-10.8)
[2018-05-11 05:14] LABS: ABNORMAL IP MESSAGE 1; HEMATOCRIT 23.9 % (42.0-52.0); MEAN CORPUSCULAR HEMOGLOBIN 29.7 pg (29.0-33.0); MEAN CORPUSCULAR HGB CONC 29.3 g/dl (32.0-37.0); MEAN CORPUSCULAR VOLUME 101.3 fl (82.0-101.0); MEAN PLATELET VOLUME 11.7 fl (7.4-10.4); NUCLEATED RED BLOOD CELLS% 1.5 /100WBC (0.0-0.0); PLATELET COUNT 51 10^3/UL (140-415); POSITIVE DIFF @See below; RED BLOOD COUNT 2.36 10^6/ul (4.70-6.10); RED CELL DISTRIBUTION WIDTH 17.7 % (11.5-14.5)
[2018-05-11 05:17] LABS: AADO2 Arterial 103.3 mmHg (7.0-24.0); Allen Test ACCEPTAB; Arterial Base Excess -10.1 mmol/L (-3.0-3); Arterial Blood Gas Oxygen Sat 95.4 mmHG (95.0-98.0); Arterial COHb 0.7 % (0.0-3.0); Arterial Fraction of Oxyhgb 94.4 % (93.0-99.0); Arterial HCO3 14.1 mmol/L (22.0-26.0); Arterial MetHb 0.4 % (0.0-1.5); Arterial Total Hemglobin 7.6 g/dl (12.0-18.0); Arterial pCO2 25.5 mmhg (35-45); MODE VENT - AC; Site Left Radial
[2018-05-11 05:19] LABS: ADD MAN DIFF? YES
[2018-05-11 05:33] LABS: INR 1.84; PROTIME 21.7 Sec (11.9-14.9); PT RATIO 1.7
[2018-05-11 05:35] LABS: PARTIAL THROMBOPLASTIN TIME 52.1 Sec (25.0-35.0)
[2018-05-11 05:36] LABS: ALANINE AMINOTRANSFERASE 784 IU/L (13-69); ALBUMIN 1.9 g/dl (3.3-4.9); ALBUMIN/GLOBULIN RATIO 0.67; ALKALINE PHOSPHATASE 171 IU/L (42-121); ANION GAP 16 (8-16); BILIRUBIN,INDIRECT 0.4 mg/dl (0-1.1); BILIRUBIN,TOTAL 0.6 mg/dl (0.2-1.3); BLOOD UREA NITROGEN 50 mg/dl (7-20); CALCIUM 8.2 mg/dl (8.4-10.2); CARBON DIOXIDE 18 mmol/L (21-31); CHLORIDE 110 mmol/L (97-110); GLUCOSE 133 mg/dl (70-220); POTASSIUM 3.7 mmol/L (3.5-5.1); SODIUM 140 mmol/L (135-144); TOTAL PROTEIN 4.7 g/dl (6.1-8.1)
[2018-05-11 05:40] LABS: LACTIC ACID 6.1 mmol/L (0.5-2.0)
[2018-05-11] MEDS: METOCLOPRAMIDE 10 MG INJ IV ×3 (05:46→22:46)
[2018-05-11] MEDS: PANTOPRAZOLE 40 MG INJ IV (05:46)
[2018-05-11] MEDS: metroNIDAZOLE 500 MG TAB PO ×3 (05:46→22:47)
[2018-05-11] MEDS: HYDROCORTISONE 100 MG INJ IV ×3 (05:46→22:46)
[2018-05-11] MEDS: LEVOTHYROXINE 100 MCG VIAL IV (05:48)
[2018-05-11 05:50] LABS: ASPARTATE AMINO TRANSFERASE 1061 IU/L (15-46)
[2018-05-11] MEDS: VALPROIC ACID LIQUID CUP 250 MG/5 ML CUP GTB (08:30)
[2018-05-11] MEDS: LACTOBACILLUS RHAMNOSUS CAP PO ×2 (08:31→20:50)
[2018-05-11] MEDS: LINEZOLID 600 MG/D5W (PMX) 300 ML IVPB ×2 (08:31→20:50)
[2018-05-11] MEDS: BALSAM PERU/CASTOR OIL 60 GM TUBE TOP ×2 (08:31→21:11)
[2018-05-11] MEDS: predniSONE 20 MG TAB GTB (08:31)
[2018-05-11] MEDS: COLLAGENASE 5 GM (UD JAR) TOP (08:31)
[2018-05-11] MEDS: CHOLESTYRAMINE 4 GM PACKET PO ×3 (08:31→20:50)
[2018-05-11 08:55] LABS: ANISOCYTOSIS 2+ (0-0); BAND NEUTROPHILS #M 8.3 10^3/ul (0.0-0.6); BAND NEUTROPHILS % (M) 31 % (0-4); BURR CELLS 2+ (0-0); EOSINOPHILS % (M) 1 % (0-7); ERYTHROBLAST% (NRBC) (M) 1 % (0-0); GIANT THROMBO% (M) 1 % (0-0); LYMPHOCYTES #M 0.5 10^3/ul (0.8-2.9); LYMPHOCYTES % (M) 2 % (15-51); METAMYELOCYTES #M 0.2 10^3/ul (0.0-0.0); METAMYELOCYTES %M 1 % (0-0); MONOCYTE #M 0.2 10^3/ul (0.3-0.9); MONOCYTES % (M) 1 % (0-11); MYELOCYTES #M 0.2 10^3/ul (0.0-0.0); MYELOCYTES % (M) 1 % (0-0); PLATELET ESTIMATE DECREASED; POIKILOCYTOSIS 1+ (0-0); POLYCHROMASIA 2+ (0-0); SEG NEUT #M 19.2 10^3/ul (1.6-7.5); SEGMENTED NEUTROPHILS (M) % 63 % (39-77); SMUDGE%M 14 % (0-0)
[2018-05-11] MEDS: LEVETIRACETAM 500 MG (PMX) 100 ML IVPB ×2 (10:27→20:50)
[2018-05-11] MEDS: IODIXANOL LOCM 100 ML BTL ×2 (10:46→10:56)
[2018-05-11] MEDS: SOD CHLORIDE 0.9% 100 ML ×2 (10:46→10:56)
[2018-05-11] MEDS: FLUCONAZOLE 100 MG TAB PO (12:36)
[2018-05-11] MEDS: SOD FERRIC GLUC COMPLX 125 MG in SOD CHLORIDE 0.9% 100 ML IVPB (18:30)
[2018-05-11] MEDS: ATORVASTATIN 20 MG TAB GTB (20:50)
[2018-05-11] MEDS: AMIKACIN 400 MG in SOD CHLORIDE 0.9% 100 ML IVPB (20:51)
[2018-05-11] MEDS: DIVALPROEX SPRINKLE 125 MG CAP PO (22:46)
[2018-05-11] MEDS: CALCITRIOL (1 MCG/ML PO SYG) PO (22:47)
[2018-05-12] MEDS: IPRATROPIUM (HFA) 12.9 GM INHALER INH ×6 (00:53→20:22)
[2018-05-12] MEDS: ALBUTEROL HFA 8 GM INHALER INH ×6 (00:53→20:23)
[2018-05-12 05:15] LABS: AADO2 Arterial 106.4 mmHg (7.0-24.0); Allen Test ACCEPTAB; Arterial Fraction of Oxyhgb 93.7 % (93.0-99.0); Arterial HCO3 15.9 mmol/L (22.0-26.0); Arterial MetHb 0.4 % (0.0-1.5); Arterial Total Hemglobin 7.5 g/dl (12.0-18.0); Arterial pCO2 26.5 mmhg (35-45); MODE VENT - AC; Site Left Radial
[2018-05-12 05:49] LABS: WHITE BLOOD COUNT 27.5 10^3/ul (4.8-10.8)
[2018-05-12 05:49] LABS: ABNORMAL IP MESSAGE 1; HEMATOCRIT 20.3 % (42.0-52.0); MEAN CORPUSCULAR HEMOGLOBIN 30.4 pg (29.0-33.0); MEAN CORPUSCULAR VOLUME 98.1 fl (82.0-101.0); MEAN PLATELET VOLUME 12.9 fl (7.4-10.4); POSITIVE DIFF @See below; RED BLOOD COUNT 2.07 10^6/ul (4.70-6.10); RED CELL DISTRIBUTION WIDTH 17.5 % (11.5-14.5)
[2018-05-12 06:10] LABS: ADD MAN DIFF? YES; HEMOGLOBIN 6.3 g/dl (14.0-18.0); PLATELET COUNT 23 10^3/UL (140-415)
[2018-05-12 06:34] LABS: LACTIC ACID 4.9 mmol/L (0.5-2.0)
[2018-05-12 07:03] LABS: ANION GAP 16 (8-16); BLOOD UREA NITROGEN 42 mg/dl (7-20); CALCIUM 8.1 mg/dl (8.4-10.2); CARBON DIOXIDE 17 mmol/L (21-31); CHLORIDE 108 mmol/L (97-110); CREATININE 1.95 mg/dl (0.61-1.24); GLUCOSE 86 mg/dl (70-220); POTASSIUM 3.3 mmol/L (3.5-5.1); SODIUM 138 mmol/L (135-144)
[2018-05-12] MEDS: HYDROCORTISONE 100 MG INJ IV ×3 (07:06→22:02)
[2018-05-12] MEDS: PANTOPRAZOLE 40 MG INJ IV (07:06)
[2018-05-12] MEDS: LEVOTHYROXINE 100 MCG VIAL IV (07:06)
[2018-05-12] MEDS: METOCLOPRAMIDE 10 MG INJ IV ×3 (07:06→22:02)
[2018-05-12] MEDS: metroNIDAZOLE 500 MG TAB PO ×3 (07:06→22:03)
[2018-05-12 07:35] LABS: ANISOCYTOSIS 2+ (0-0); BAND NEUTROPHILS #M 6.6 10^3/ul (0.0-0.6); BAND NEUTROPHILS % (M) 24 % (0-4); ERYTHROBLAST% (NRBC) (M) 1 % (0-0); LYMPHOCYTES #M 0.2 10^3/ul (0.8-2.9); LYMPHOCYTES % (M) 1 % (15-51); PLATELET ESTIMATE SIG DECREASED; POIKILOCYTOSIS 1+ (0-0); POLYCHROMASIA 3+ (0-0); SEG NEUT #M 22.4 10^3/ul (1.6-7.5); SEGMENTED NEUTROPHILS (M) % 75 % (39-77); TARGET CELLS 1+ (0-0); TOXIC GRANULATION 1+ (0-0)
[2018-05-12] MEDS: VALPROIC ACID LIQUID CUP 250 MG/5 ML CUP GTB (08:39)
[2018-05-12] MEDS: COLLAGENASE 5 GM (UD JAR) TOP (08:39)
[2018-05-12] MEDS: POTASSIUM CHLORIDE 20 MEQ POWDER FOR ORAL SOLN GTB (08:39)
[2018-05-12] MEDS: LACTOBACILLUS RHAMNOSUS CAP PO ×2 (08:40→20:16)
[2018-05-12] MEDS: predniSONE 20 MG TAB GTB (08:40)
[2018-05-12] MEDS: FLUCONAZOLE 100 MG TAB PO (08:40)
[2018-05-12] MEDS: CHOLESTYRAMINE 4 GM PACKET PO ×3 (08:40→20:17)
[2018-05-12] MEDS: BALSAM PERU/CASTOR OIL 60 GM TUBE TOP ×2 (08:41→20:17)
[2018-05-12] MEDS: LEVETIRACETAM 500 MG (PMX) 100 ML IVPB ×2 (08:44→20:17)
[2018-05-12] MEDS: LINEZOLID 600 MG/D5W (PMX) 300 ML IVPB (09:50)
[2018-05-12 11:18] LABS: IMMEDIATE SPIN CROSSMATCH 1
[2018-05-12] MEDS ORDERED: VANCOMYCIN IV PER PHARMACY XX (14:00)
[2018-05-12] MEDS ORDERED: ALBUMIN HUMAN 5% IVPB (14:00)
[2018-05-12] MEDS: VANCOMYCIN 750 MG in SOD CHLORIDE 0.9% 150 ML IVPB (16:00)
[2018-05-12] MEDS: EPOETIN 10000 UNITS/1 ML INJ (ESRD) SC (18:09)
[2018-05-12] MEDS: DEXTROSE 5%-0.9% NACL 1,000 ML IV (18:10)
[2018-05-12 20:07] LABS: WHITE BLOOD COUNT 22.4 10^3/ul (4.8-10.8)
[2018-05-12 20:07] LABS: ABNORMAL IP MESSAGE 1; HEMATOCRIT 26.9 % (42.0-52.0); HEMOGLOBIN 8.6 g/dl (14.0-18.0); MEAN CORPUSCULAR HEMOGLOBIN 29.9 pg (29.0-33.0); MEAN CORPUSCULAR VOLUME 93.4 fl (82.0-101.0); MEAN PLATELET VOLUME 10.4 fl (7.4-10.4); NUCLEATED RED BLOOD CELLS% 1.6 /100WBC (0.0-0.0); PLATELET COUNT 69 10^3/UL (140-415); POSITIVE DIFF @See below; RED BLOOD COUNT 2.88 10^6/ul (4.70-6.10); RED CELL DISTRIBUTION WIDTH 18.2 % (11.5-14.5)
[2018-05-12 20:11] LABS: ADD MAN DIFF? YES
[2018-05-12] MEDS: ATORVASTATIN 20 MG TAB GTB (20:17)
[2018-05-12] MEDS: DIVALPROEX SPRINKLE 125 MG CAP PO (20:17)
[2018-05-12 20:21] LABS: ANION GAP 17 (8-16); BLOOD UREA NITROGEN 43 mg/dl (7-20); CALCIUM 8.4 mg/dl (8.4-10.2); CARBON DIOXIDE 16 mmol/L (21-31); CHLORIDE 109 mmol/L (97-110); CREATININE 2.09 mg/dl (0.61-1.24); GLUCOSE 80 mg/dl (70-220); POTASSIUM 3.8 mmol/L (3.5-5.1); SODIUM 138 mmol/L (135-144)
[2018-05-12 21:26] LABS: BAND NEUTROPHILS #M 1.1 10^3/ul (0.0-0.6); BAND NEUTROPHILS % (M) 5 % (0-4); BURR CELLS 2+; ERYTHROBLAST% (NRBC) (M) 5 % (0-0); LYMPHOCYTES # 0.2 10^3/ul (0.8-2.9); LYMPHOCYTES #M 0.2 10^3/ul (0.8-2.9); LYMPHOCYTES % (M) 1 % (15-51); MONOCYTE # 0.4 10^3/ul (0.3-0.9); MONOCYTE #M 0.4 10^3/ul (0.3-0.9); MONOCYTES % (M) 2 % (0-11); SEG NEUT #M 20.9 10^3/ul (1.7-7.5); SEGMENTED NEUTROPHILS (M) % 92 % (39-77)
[2018-05-13] MEDS: DEXTROSE 5%-0.9% NACL 1,000 ML IV (00:51)
[2018-05-13] MEDS: IPRATROPIUM (HFA) 12.9 GM INHALER INH ×5 (02:00→20:30)
[2018-05-13] MEDS: ALBUTEROL HFA 8 GM INHALER INH ×5 (02:00→20:30)
[2018-05-13 05:32] LABS: ABNORMAL IP MESSAGE 1; HEMATOCRIT 26.2 % (42.0-52.0); HEMOGLOBIN 8.4 g/dl (14.0-18.0); MEAN CORPUSCULAR HEMOGLOBIN 29.6 pg (29.0-33.0); MEAN CORPUSCULAR HGB CONC 32.1 g/dl (32.0-37.0); MEAN CORPUSCULAR VOLUME 92.3 fl (82.0-101.0); MEAN PLATELET VOLUME 10.8 fl (7.4-10.4); NUCLEATED RED BLOOD CELLS% 2.2 /100WBC (0.0-0.0); PLATELET COUNT 55 10^3/UL (140-415); POSITIVE DIFF @See below; RED BLOOD COUNT 2.84 10^6/ul (4.70-6.10); RED CELL DISTRIBUTION WIDTH 18.6 % (11.5-14.5)
[2018-05-13 05:32] LABS: WHITE BLOOD COUNT 21.7 10^3/ul (4.8-10.8)
[2018-05-13 05:42] LABS: ADD MAN DIFF? YES
[2018-05-13 05:46] LABS: ANION GAP 18 (8-16); BLOOD UREA NITROGEN 42 mg/dl (7-20); CALCIUM 8.4 mg/dl (8.4-10.2); CARBON DIOXIDE 16 mmol/L (21-31); CHLORIDE 109 mmol/L (97-110); CREATININE 2.19 mg/dl (0.61-1.24); GLUCOSE 79 mg/dl (70-220); POTASSIUM 3.5 mmol/L (3.5-5.1); SODIUM 139 mmol/L (135-144)
[2018-05-13] MEDS: HYDROCORTISONE 100 MG INJ IV ×3 (05:56→22:21)
[2018-05-13] MEDS: PANTOPRAZOLE 40 MG INJ IV (05:56)
[2018-05-13] MEDS: LEVOTHYROXINE 100 MCG VIAL IV (05:56)
[2018-05-13] MEDS: metroNIDAZOLE 500 MG TAB PO ×3 (05:56→22:21)
[2018-05-13] MEDS: METOCLOPRAMIDE 10 MG INJ IV ×3 (05:56→22:21)
[2018-05-13 08:14] LABS: ANISOCYTOSIS 1+ (0-0); BAND NEUTROPHILS #M 4.1 10^3/ul (0.0-0.6); BAND NEUTROPHILS % (M) 19 % (0-4); BURR CELLS 1+ (0-0); ERYTHROBLAST% (NRBC) (M) 5 % (0-0); LYMPHOCYTES #M 0.2 10^3/ul (0.8-2.9); LYMPHOCYTES % (M) 1 % (15-51); METAMYELOCYTES #M 0.2 10^3/ul (0.0-0.0); METAMYELOCYTES %M 1 % (0-0); MONOCYTE #M 0.4 10^3/ul (0.3-0.9); MONOCYTES % (M) 2 % (0-11); PLATELET ESTIMATE SIG DECREASED; POIKILOCYTOSIS 1+ (0-0); SEG NEUT #M 17.6 10^3/ul (1.6-7.5); SEGMENTED NEUTROPHILS (M) % 77 % (39-77); SMUDGE%M 1 % (0-0); SPHEROCYTES 1+ (0-0); TARGET CELLS 1+ (0-0)
[2018-05-13] MEDS: CHOLESTYRAMINE 4 GM PACKET PO ×3 (09:53→21:12)
[2018-05-13] MEDS: VALPROIC ACID LIQUID CUP 250 MG/5 ML CUP GTB (09:53)
[2018-05-13] MEDS: predniSONE 20 MG TAB GTB (09:53)
[2018-05-13] MEDS: LEVETIRACETAM 500 MG (PMX) 100 ML IVPB ×2 (09:53→21:12)
[2018-05-13] MEDS: FLUCONAZOLE 100 MG TAB PO (09:53)
[2018-05-13] MEDS: COLLAGENASE 5 GM (UD JAR) TOP (09:53)
[2018-05-13] MEDS: BALSAM PERU/CASTOR OIL 60 GM TUBE TOP ×2 (09:54→21:13)
[2018-05-13 11:02] LABS: INR 1.55; PROTIME 18.9 Sec (11.9-14.9); PT RATIO 1.5
[2018-05-13] MEDS: HEPARIN 1000 UNITS/ML 10 ML INJ CATHETER (14:29)
[2018-05-13] MEDS: LACTOBACILLUS RHAMNOSUS CAP PO ×2 (17:40→21:14)
[2018-05-13] MEDS: ATORVASTATIN 20 MG TAB GTB (21:12)
[2018-05-13] MEDS: DIVALPROEX SPRINKLE 125 MG CAP PO (21:12)
[2018-05-13] MEDS: AMIKACIN 400 MG in SOD CHLORIDE 0.9% 100 ML IVPB (22:55)
[2018-05-14] MEDS: IPRATROPIUM (HFA) 12.9 GM INHALER INH ×3 (01:58→09:11)
[2018-05-14] MEDS: ALBUTEROL HFA 8 GM INHALER INH ×6 (01:58→21:32)
[2018-05-14 05:26] LABS: ADD MAN DIFF? NO
[2018-05-14 05:30] LABS: WHITE BLOOD COUNT 24.2 10^3/ul (4.8-10.8)
[2018-05-14 05:30] LABS: ABNORMAL IP MESSAGE 1; BASOPHIL # 0.1 10^3/ul (0.0-0.1); BASOPHILS % 0.3 % (0.0-2.0); HEMATOCRIT 31.8 % (42.0-52.0); HEMOGLOBIN 10.3 g/dl (14.0-18.0); LYMPHOCYTES # 0.3 10^3/ul (0.8-2.9); LYMPHOCYTES % 1.4 % (15.0-51.0); MEAN CORPUSCULAR HEMOGLOBIN 29.5 pg (29.0-33.0); MEAN CORPUSCULAR HGB CONC 32.4 g/dl (32.0-37.0); MEAN CORPUSCULAR VOLUME 91.1 fl (82.0-101.0); MEAN PLATELET VOLUME 11.3 fl (7.4-10.4); MONOCYTE # 0.9 10^3/ul (0.3-0.9); MONOCYTES % 3.7 % (0.0-11.0); NEUTROPHIL # 22.6 10^3/ul (1.6-7.5); NEUTROPHILS % 93.4 % (39.0-77.0); NUCLEATED RED BLOOD CELLS # 0.5 10^3/ul (0.0-0.0); NUCLEATED RED BLOOD CELLS% 2.2 /100WBC (0.0-0.0); PLATELET COUNT 33 10^3/UL (140-415); POSITIVE DIFF @See below; RED BLOOD COUNT 3.49 10^6/ul (4.70-6.10); RED CELL DISTRIBUTION WIDTH 18.6 % (11.5-14.5)
[2018-05-14] MEDS: LEVOTHYROXINE 100 MCG VIAL IV (05:49)
[2018-05-14] MEDS: HYDROCORTISONE 100 MG INJ IV ×3 (05:49→21:55)
[2018-05-14] MEDS: METOCLOPRAMIDE 10 MG INJ IV ×3 (05:50→21:55)
[2018-05-14] MEDS: metroNIDAZOLE 500 MG TAB PO ×3 (05:50→21:55)
[2018-05-14 06:08] LABS: ANION GAP 14 (8-16); BLOOD UREA NITROGEN 32 mg/dl (7-20); CALCIUM 8.2 mg/dl (8.4-10.2); CARBON DIOXIDE 21 mmol/L (21-31); CHLORIDE 107 mmol/L (97-110); CREATININE 1.73 mg/dl (0.61-1.24); GLUCOSE 83 mg/dl (70-220); MAGNESIUM 1.6 mg/dl (1.7-2.5); POTASSIUM 3.5 mmol/L (3.5-5.1); SODIUM 138 mmol/L (135-144)
[2018-05-14] MEDS: DEXTROSE 5%-0.9% NACL 1,000 ML IV (07:02)
[2018-05-14 09:05] LABS: IMMEDIATE SPIN CROSSMATCH 1 2
[2018-05-14] MEDS: BALSAM PERU/CASTOR OIL 60 GM TUBE TOP ×2 (10:00→21:00)
[2018-05-14] MEDS: CHOLESTYRAMINE 4 GM PACKET PO ×3 (10:00→21:54)
[2018-05-14] MEDS: FLUCONAZOLE 100 MG TAB PO (10:00)
[2018-05-14] MEDS: LACTOBACILLUS RHAMNOSUS CAP PO ×2 (10:00→21:54)
[2018-05-14] MEDS: predniSONE 20 MG TAB GTB (10:00)
[2018-05-14] MEDS: COLLAGENASE 5 GM (UD JAR) TOP (10:00)
[2018-05-14] MEDS: LEVETIRACETAM 500 MG (PMX) 100 ML IVPB ×2 (10:37→21:54)
[2018-05-14 11:04] LABS: PLATELET COUNT 33 10^3/UL (140-415)
[2018-05-14 11:04] LABS: FIBRIN SPLIT PRODUCT >10 and <40 ug/ml (<10)
[2018-05-14 11:20] LABS: INR 1.42; PROTIME 17.6 Sec (11.9-14.9); PT RATIO 1.4
[2018-05-14 11:24] LABS: PARTIAL THROMBOPLASTIN TIME 43.5 Sec (25.0-35.0)
[2018-05-14 11:25] LABS: THROMBIN TIME 18.5 SEC (13.8-19.1)
[2018-05-14 11:42] LABS: D-DIMER 8827.83 ng/ml (<460)
[2018-05-14 13:10] LABS: TYPE AND SCREEN 1
[2018-05-14] MEDS: MAGNESIUM SULFATE 2 GM/50 ML 50 ML IVPB (14:00)
[2018-05-14] MEDS: LIDOCAINE 1% (MPF) 5 ML VIAL (17:01)
[2018-05-14] MEDS: EPOETIN 10000 UNITS/1 ML INJ (ESRD) SC (17:16)
[2018-05-14] MEDS: DIVALPROEX SPRINKLE 125 MG CAP PO (21:54)
[2018-05-14] MEDS: ATORVASTATIN 20 MG TAB GTB (21:54)
[2018-05-15] MEDS: ALBUTEROL HFA 8 GM INHALER INH ×6 (01:29→20:06)
[2018-05-15] MEDS: HYDROCORTISONE 100 MG INJ IV ×3 (05:25→23:54)
[2018-05-15] MEDS: LEVOTHYROXINE 100 MCG VIAL IV (05:25)
[2018-05-15] MEDS: METOCLOPRAMIDE 10 MG INJ IV ×3 (05:25→23:54)
[2018-05-15] MEDS: metroNIDAZOLE 500 MG TAB PO ×3 (05:26→23:54)
[2018-05-15 05:31] LABS: ADD MAN DIFF? NO
[2018-05-15 05:32] LABS: WHITE BLOOD COUNT 17.3 10^3/ul (4.8-10.8)
[2018-05-15 05:32] LABS: ABNORMAL IP MESSAGE 1; BASOPHILS % 0.2 % (0.0-2.0); HEMATOCRIT 27.7 % (42.0-52.0); HEMOGLOBIN 8.9 g/dl (14.0-18.0); LYMPHOCYTES # 0.3 10^3/ul (0.8-2.9); LYMPHOCYTES % 1.7 % (15.0-51.0); MEAN CORPUSCULAR HGB CONC 32.1 g/dl (32.0-37.0); MEAN CORPUSCULAR VOLUME 90.2 fl (82.0-101.0); MEAN PLATELET VOLUME 11.8 fl (7.4-10.4); MONOCYTE # 0.7 10^3/ul (0.3-0.9); MONOCYTES % 3.9 % (0.0-11.0); NEUTROPHIL # 16.1 10^3/ul (1.6-7.5); NEUTROPHILS % 92.8 % (39.0-77.0); NUCLEATED RED BLOOD CELLS # 0.8 10^3/ul (0.0-0.0); NUCLEATED RED BLOOD CELLS% 4.4 /100WBC (0.0-0.0); PLATELET COUNT 74 10^3/UL (140-415); POSITIVE DIFF @See below; RED BLOOD COUNT 3.07 10^6/ul (4.70-6.10); RED CELL DISTRIBUTION WIDTH 18.3 % (11.5-14.5)
[2018-05-15] MEDS: LIDOCAINE 1% (MPF) 5 ML VIAL SC (05:53)
[2018-05-15 06:11] LABS: ANION GAP 13 (8-16); BLOOD UREA NITROGEN 36 mg/dl (7-20); CALCIUM 8.1 mg/dl (8.4-10.2); CARBON DIOXIDE 20 mmol/L (21-31); CHLORIDE 107 mmol/L (97-110); CREATININE 1.87 mg/dl (0.61-1.24); GLUCOSE 111 mg/dl (70-220); PHOSPHORUS 4.4 mg/dl (2.5-4.9); POTASSIUM 3.6 mmol/L (3.5-5.1); SODIUM 136 mmol/L (135-144)
[2018-05-15] MEDS: CHOLESTYRAMINE 4 GM PACKET PO ×3 (08:56→23:54)
[2018-05-15] MEDS: LACTOBACILLUS RHAMNOSUS CAP PO ×2 (08:56→23:54)
[2018-05-15] MEDS: predniSONE 20 MG TAB GTB (08:56)
[2018-05-15] MEDS: COLLAGENASE 5 GM (UD JAR) TOP (08:56)
[2018-05-15] MEDS: BALSAM PERU/CASTOR OIL 60 GM TUBE TOP ×2 (08:59→23:54)
[2018-05-15] MEDS: LEVETIRACETAM 500 MG (PMX) 100 ML IVPB ×2 (08:59→23:53)
[2018-05-15] MEDS: FLUCONAZOLE 100 MG TAB PO (08:59)
[2018-05-15] MEDS: ALTEPLASE (CATHFLO) 2 MG INJ CATHETER (10:34)
[2018-05-15] MEDS: ALBUMIN HUMAN 25% 100 ML IV (20:52)
[2018-05-15] MEDS: DIVALPROEX SPRINKLE 125 MG CAP PO (23:54)
[2018-05-15] MEDS: ATORVASTATIN 20 MG TAB GTB (23:54)
[2018-05-16] MEDS: HEPARIN 1000 UNITS/ML 10 ML INJ CATHETER (00:06)
[2018-05-16] MEDS: LORAZEPAM 2 MG INJ IV (01:17)
[2018-05-16] MEDS: ALBUTEROL HFA 8 GM INHALER INH ×6 (01:19→20:59)
[2018-05-16] MEDS: METOCLOPRAMIDE 10 MG INJ IV ×3 (06:03→21:34)
[2018-05-16] MEDS: metroNIDAZOLE 500 MG TAB PO ×3 (06:03→21:34)
[2018-05-16] MEDS: HYDROCORTISONE 100 MG INJ IV (06:03)
[2018-05-16] MEDS: LEVOTHYROXINE 100 MCG VIAL IV (06:03)
[2018-05-16 06:57] LABS: ADD MAN DIFF? NO
[2018-05-16 07:02] LABS: ABNORMAL IP MESSAGE 1; BASOPHILS % 0.3 % (0.0-2.0); HEMATOCRIT 27.3 % (42.0-52.0); HEMOGLOBIN 8.8 g/dl (14.0-18.0); LYMPHOCYTES # 0.3 10^3/ul (0.8-2.9); LYMPHOCYTES % 1.9 % (15.0-51.0); MEAN CORPUSCULAR HEMOGLOBIN 29.5 pg (29.0-33.0); MEAN CORPUSCULAR HGB CONC 32.2 g/dl (32.0-37.0); MEAN CORPUSCULAR VOLUME 91.6 fl (82.0-101.0); MEAN PLATELET VOLUME 12.6 fl (7.4-10.4); MONOCYTE # 0.7 10^3/ul (0.3-0.9); MONOCYTES % 4.6 % (0.0-11.0); NEUTROPHIL # 13.4 10^3/ul (1.6-7.5); NEUTROPHILS % 91.6 % (39.0-77.0); NUCLEATED RED BLOOD CELLS # 0.7 10^3/ul (0.0-0.0); NUCLEATED RED BLOOD CELLS% 4.6 /100WBC (0.0-0.0); POSITIVE DIFF @See below; RED BLOOD COUNT 2.98 10^6/ul (4.70-6.10); RED CELL DISTRIBUTION WIDTH 18.1 % (11.5-14.5)
[2018-05-16 07:02] LABS: WHITE BLOOD COUNT 14.7 10^3/ul (4.8-10.8)
[2018-05-16 07:54] LABS: PLATELET COUNT 39 10^3/UL (140-415)
[2018-05-16 07:55] LABS: ANISOCYTOSIS 1+ (0-0); BAND NEUTROPHILS #M 0.5 10^3/ul (0.0-0.6); BAND NEUTROPHILS % (M) 4 % (0-4); ERYTHROBLAST% (NRBC) (M) 8 % (0-0); HYPOCHROMASIA 1+ (0-0); LYMPHOCYTES #M 0.4 10^3/ul (0.8-2.9); LYMPHOCYTES % (M) 3 % (15-51); MONOCYTE #M 0.7 10^3/ul (0.3-0.9); MONOCYTES % (M) 5 % (0-11); PLATELET ESTIMATE SIG DECREASED; POIKILOCYTOSIS 1+ (0-0); SEGMENTED NEUTROPHILS (M) % 88 % (39-77); SMUDGE%M 10 % (0-0); SPHEROCYTES 1+ (0-0); TARGET CELLS 1+ (0-0)
[2018-05-16] MEDS: COLLAGENASE 5 GM (UD JAR) TOP (08:42)
[2018-05-16] MEDS: BALSAM PERU/CASTOR OIL 60 GM TUBE TOP ×2 (08:42→21:34)
[2018-05-16] MEDS: DEXTROSE 5%-0.9% NACL 1,000 ML IV (08:43)
[2018-05-16] MEDS: CHOLESTYRAMINE 4 GM PACKET PO ×3 (08:43→21:34)
[2018-05-16] MEDS: FLUCONAZOLE 100 MG TAB PO (08:43)
[2018-05-16] MEDS: predniSONE 20 MG TAB GTB (08:43)
[2018-05-16] MEDS: LACTOBACILLUS RHAMNOSUS CAP PO ×2 (08:43→21:34)
[2018-05-16] MEDS: LEVETIRACETAM 500 MG (PMX) 100 ML IVPB ×2 (08:43→21:34)
[2018-05-16] MEDS: AMIKACIN 400 MG in SOD CHLORIDE 0.9% 100 ML IVPB (11:05)
[2018-05-16] MEDS: VANCOMYCIN 750 MG in SOD CHLORIDE 0.9% 150 ML IVPB (16:06)
[2018-05-16] MEDS: EPOETIN 10000 UNITS/1 ML INJ (ESRD) SC (18:31)
[2018-05-16] MEDS: DIVALPROEX SPRINKLE 125 MG CAP PO (21:34)
[2018-05-16] MEDS: ATORVASTATIN 20 MG TAB GTB (21:34)
[2018-05-17] MEDS: ALBUTEROL HFA 8 GM INHALER INH ×6 (01:11→21:30)
[2018-05-17 05:26] LABS: ADD MAN DIFF? NO
[2018-05-17 05:39] LABS: WHITE BLOOD COUNT 16.6 10^3/ul (4.8-10.8)
[2018-05-17 05:39] LABS: ABNORMAL IP MESSAGE 1; BASOPHIL # 0.1 10^3/ul (0.0-0.1); BASOPHILS % 0.3 % (0.0-2.0); HEMATOCRIT 31.1 % (42.0-52.0); HEMOGLOBIN 9.7 g/dl (14.0-18.0); LYMPHOCYTES # 0.7 10^3/ul (0.8-2.9); MEAN CORPUSCULAR HGB CONC 31.2 g/dl (32.0-37.0); MEAN CORPUSCULAR VOLUME 92.8 fl (82.0-101.0); MEAN PLATELET VOLUME 11.8 fl (7.4-10.4); MONOCYTE # 0.9 10^3/ul (0.3-0.9); MONOCYTES % 5.3 % (0.0-11.0); NEUTROPHIL # 14.6 10^3/ul (1.6-7.5); NEUTROPHILS % 87.9 % (39.0-77.0); NUCLEATED RED BLOOD CELLS # 1.1 10^3/ul (0.0-0.0); NUCLEATED RED BLOOD CELLS% 6.5 /100WBC (0.0-0.0); PLATELET COUNT 36 10^3/UL (140-415); POSITIVE DIFF @See below; RED BLOOD COUNT 3.35 10^6/ul (4.70-6.10)
[2018-05-17] MEDS: METOCLOPRAMIDE 10 MG INJ IV ×3 (05:52→21:07)
[2018-05-17] MEDS: metroNIDAZOLE 500 MG TAB PO ×3 (06:02→21:07)
[2018-05-17] MEDS: LEVOTHYROXINE 100 MCG VIAL IV (06:09)
[2018-05-17 06:17] LABS: ANION GAP 11 (8-16); BLOOD UREA NITROGEN 26 mg/dl (7-20); CALCIUM 8.3 mg/dl (8.4-10.2); CARBON DIOXIDE 23 mmol/L (21-31); CHLORIDE 109 mmol/L (97-110); CREATININE 1.54 mg/dl (0.61-1.24); GLUCOSE 112 mg/dl (70-220); MAGNESIUM 1.8 mg/dl (1.7-2.5); PHOSPHORUS 3.2 mg/dl (2.5-4.9); POTASSIUM 3.7 mmol/L (3.5-5.1); SODIUM 139 mmol/L (135-144)
[2018-05-17] MEDS: DEXTROSE 5%-0.9% NACL 1,000 ML IV ×2 (08:30→20:00)
[2018-05-17] MEDS: predniSONE 20 MG TAB GTB (08:46)
[2018-05-17] MEDS: BALSAM PERU/CASTOR OIL 60 GM TUBE TOP ×2 (08:46→21:08)
[2018-05-17] MEDS: FLUCONAZOLE 100 MG TAB PO (08:46)
[2018-05-17] MEDS: LACTOBACILLUS RHAMNOSUS CAP PO ×2 (08:46→21:07)
[2018-05-17] MEDS: COLLAGENASE 5 GM (UD JAR) TOP (08:46)
[2018-05-17] MEDS: LEVETIRACETAM 500 MG (PMX) 100 ML IVPB ×2 (08:46→21:06)
[2018-05-17] MEDS: CHOLESTYRAMINE 4 GM PACKET PO ×3 (08:46→21:08)
[2018-05-17] MEDS: ALBUMIN HUMAN 25% 100 ML IV (12:29)
[2018-05-17] MEDS: HEPARIN 1000 UNITS/ML 10 ML INJ CATHETER (15:14)
[2018-05-17] MEDS: AMIKACIN 400 MG in SOD CHLORIDE 0.9% 100 ML IVPB (16:57)
[2018-05-17] MEDS: ATORVASTATIN 20 MG TAB GTB (21:07)
[2018-05-17] MEDS: DIVALPROEX SPRINKLE 125 MG CAP PO (21:08)
[2018-05-18] MEDS: LORAZEPAM 2 MG INJ IV (00:07)
[2018-05-18] MEDS: ALBUTEROL HFA 8 GM INHALER INH ×5 (01:32→22:23)
[2018-05-18] MEDS: metroNIDAZOLE 500 MG TAB PO ×4 (04:54→22:41)
[2018-05-18] MEDS: METOCLOPRAMIDE 10 MG INJ IV ×3 (04:54→22:25)
[2018-05-18 05:10] LABS: ADD MAN DIFF? NO
[2018-05-18 05:41] LABS: ALANINE AMINOTRANSFERASE 43 IU/L (13-69); ALBUMIN 2.1 g/dl (3.3-4.9); ALKALINE PHOSPHATASE 133 IU/L (42-121); ANION GAP 12 (8-16); ASPARTATE AMINO TRANSFERASE 21 IU/L (15-46); BILIRUBIN,INDIRECT 0.4 mg/dl (0-1.1); BILIRUBIN,TOTAL 0.4 mg/dl (0.2-1.3); BLOOD UREA NITROGEN 19 mg/dl (7-20); CALCIUM 7.5 mg/dl (8.4-10.2); CARBON DIOXIDE 21 mmol/L (21-31); CHLORIDE 111 mmol/L (97-110); CREATININE 1.17 mg/dl (0.61-1.24); GLUCOSE 89 mg/dl (70-220); POTASSIUM 4.4 mmol/L (3.5-5.1); SODIUM 140 mmol/L (135-144); TOTAL PROTEIN 4.7 g/dl (6.1-8.1)
[2018-05-18 07:19] LABS: ABNORMAL IP MESSAGE 1; BASOPHIL # 0.1 10^3/ul (0.0-0.1); BASOPHILS % 0.3 % (0.0-2.0); EOSINOPHILS % 0.1 % (0.0-7.0); HEMATOCRIT 29.9 % (42.0-52.0); HEMOGLOBIN 9.2 g/dl (14.0-18.0); LYMPHOCYTES % 6.5 % (15.0-51.0); MEAN CORPUSCULAR HEMOGLOBIN 29.4 pg (29.0-33.0); MEAN CORPUSCULAR HGB CONC 30.8 g/dl (32.0-37.0); MEAN CORPUSCULAR VOLUME 95.5 fl (82.0-101.0); MEAN PLATELET VOLUME 12.8 fl (7.4-10.4); MONOCYTE # 0.7 10^3/ul (0.3-0.9); MONOCYTES % 4.6 % (0.0-11.0); NEUTROPHIL # 12.5 10^3/ul (1.6-7.5); NEUTROPHILS % 84.3 % (39.0-77.0); NUCLEATED RED BLOOD CELLS # 1.6 10^3/ul (0.0-0.0); NUCLEATED RED BLOOD CELLS% 10.8 /100WBC (0.0-0.0); PLATELET COUNT 31 10^3/UL (140-415); POSITIVE DIFF @See below; RED BLOOD COUNT 3.13 10^6/ul (4.70-6.10); RED CELL DISTRIBUTION WIDTH 18.3 % (11.5-14.5)
[2018-05-18 07:19] LABS: WHITE BLOOD COUNT 14.8 10^3/ul (4.8-10.8)
[2018-05-18] MEDS: CHOLESTYRAMINE 4 GM PACKET PO ×3 (09:16→22:24)
[2018-05-18] MEDS: FLUCONAZOLE 100 MG TAB PO (09:16)
[2018-05-18] MEDS: LACTOBACILLUS RHAMNOSUS CAP PO ×2 (09:16→23:16)
[2018-05-18] MEDS: predniSONE 20 MG TAB GTB (09:17)
[2018-05-18] MEDS: BALSAM PERU/CASTOR OIL 60 GM TUBE TOP ×2 (09:17→22:25)
[2018-05-18] MEDS: COLLAGENASE 5 GM (UD JAR) TOP (09:19)
[2018-05-18] MEDS: LEVETIRACETAM 500 MG (PMX) 100 ML IVPB ×2 (09:19→23:40)
[2018-05-18] MEDS: ATORVASTATIN 20 MG TAB GTB ×2 (22:25→22:41)
[2018-05-18] MEDS: DIVALPROEX SPRINKLE 125 MG CAP PO ×2 (22:26→22:41)
[2018-05-19] MEDS: ALBUTEROL HFA 8 GM INHALER INH ×4 (01:40→20:50)
[2018-05-19] MEDS: CHOLESTYRAMINE 4 GM PACKET PO ×4 (01:48→21:12)
[2018-05-19 05:42] LABS: ADD MAN DIFF? NO
[2018-05-19 05:47] LABS: WHITE BLOOD COUNT 17.9 10^3/ul (4.8-10.8)
[2018-05-19 05:47] LABS: ABNORMAL IP MESSAGE 1; BASOPHILS % 0.2 % (0.0-2.0); EOSINOPHILS % 0.1 % (0.0-7.0); HEMATOCRIT 28.4 % (42.0-52.0); HEMOGLOBIN 8.7 g/dl (14.0-18.0); LYMPHOCYTES # 0.7 10^3/ul (0.8-2.9); LYMPHOCYTES % 4.1 % (15.0-51.0); MEAN CORPUSCULAR HEMOGLOBIN 29.9 pg (29.0-33.0); MEAN CORPUSCULAR HGB CONC 30.6 g/dl (32.0-37.0); MEAN CORPUSCULAR VOLUME 97.6 fl (82.0-101.0); MEAN PLATELET VOLUME 13.3 fl (7.4-10.4); MONOCYTE # 0.6 10^3/ul (0.3-0.9); MONOCYTES % 3.2 % (0.0-11.0); NEUTROPHIL # 15.9 10^3/ul (1.6-7.5); NEUTROPHILS % 88.7 % (39.0-77.0); NUCLEATED RED BLOOD CELLS # 2.2 10^3/ul (0.0-0.0); NUCLEATED RED BLOOD CELLS% 12.1 /100WBC (0.0-0.0); PLATELET COUNT 32 10^3/UL (140-415); POSITIVE DIFF @See below; RED BLOOD COUNT 2.91 10^6/ul (4.70-6.10); RED CELL DISTRIBUTION WIDTH 18.5 % (11.5-14.5)
[2018-05-19 06:17] LABS: ALANINE AMINOTRANSFERASE 46 IU/L (13-69); ALBUMIN 2.2 g/dl (3.3-4.9); ALBUMIN/GLOBULIN RATIO 0.78; ALKALINE PHOSPHATASE 200 IU/L (42-121); ANION GAP 9 (8-16); ASPARTATE AMINO TRANSFERASE 18 IU/L (15-46); BILIRUBIN,INDIRECT 0.3 mg/dl (0-1.1); BILIRUBIN,TOTAL 0.3 mg/dl (0.2-1.3); BLOOD UREA NITROGEN 28 mg/dl (7-20); CALCIUM 7.8 mg/dl (8.4-10.2); CARBON DIOXIDE 25 mmol/L (21-31); CHLORIDE 109 mmol/L (97-110); CREATININE 1.47 mg/dl (0.61-1.24); GLUCOSE 102 mg/dl (70-220); POTASSIUM 3.6 mmol/L (3.5-5.1); SODIUM 139 mmol/L (135-144)
[2018-05-19] MEDS: METOCLOPRAMIDE 10 MG INJ IV ×4 (06:19→21:41)
[2018-05-19] MEDS: metroNIDAZOLE 500 MG TAB PO ×3 (06:19→21:12)
[2018-05-19] MEDS: COLLAGENASE 5 GM (UD JAR) TOP (09:58)
[2018-05-19] MEDS: LACTOBACILLUS RHAMNOSUS CAP PO ×2 (09:58→21:12)
[2018-05-19] MEDS: FLUCONAZOLE 100 MG TAB PO (09:58)
[2018-05-19] MEDS: predniSONE 20 MG TAB GTB (09:58)
[2018-05-19] MEDS: LEVETIRACETAM 500 MG (PMX) 100 ML IVPB ×2 (10:01→21:00)
[2018-05-19] MEDS: BALSAM PERU/CASTOR OIL 60 GM TUBE TOP ×2 (10:01→21:12)
[2018-05-19] MEDS: ALBUMIN HUMAN 25% 100 ML IV (12:13)
[2018-05-19] MEDS: HEPARIN 1000 UNITS/ML 10 ML INJ CATHETER (13:35)
[2018-05-19] MEDS: EPOETIN 10000 UNITS/1 ML INJ (ESRD) SC (18:50)
[2018-05-19] MEDS: ATORVASTATIN 20 MG TAB GTB (21:12)
[2018-05-19] MEDS: DIVALPROEX SPRINKLE 125 MG CAP PO (21:12)
[2018-05-20] MEDS: ALBUTEROL HFA 8 GM INHALER INH ×4 (01:59→21:20)
[2018-05-20] MEDS: METOCLOPRAMIDE 10 MG INJ IV (06:00)
[2018-05-20] MEDS: metroNIDAZOLE 500 MG TAB PO ×3 (06:39→21:34)
[2018-05-20] MEDS: COLLAGENASE 5 GM (UD JAR) TOP (08:59)
[2018-05-20] MEDS: predniSONE 2.5 MG TAB GTB (08:59)
[2018-05-20] MEDS: CHOLESTYRAMINE 4 GM PACKET PO ×3 (08:59→21:32)
[2018-05-20] MEDS: FLUCONAZOLE 100 MG TAB PO (08:59)
[2018-05-20] MEDS: LACTOBACILLUS RHAMNOSUS CAP PO ×2 (08:59→21:32)
[2018-05-20] MEDS: BALSAM PERU/CASTOR OIL 60 GM TUBE TOP ×2 (08:59→21:32)
[2018-05-20] MEDS: LEVETIRACETAM 500 MG (PMX) 100 ML IVPB (09:00)
[2018-05-20] MEDS: LEVETIRACETAM (100 MG/ML) 5ML CUP GTB ×2 (11:05→21:32)
[2018-05-20] MEDS: ATORVASTATIN 20 MG TAB GTB (21:32)
[2018-05-20] MEDS: DIVALPROEX SPRINKLE 125 MG CAP PO (21:32)
[2018-05-21] MEDS: ALBUTEROL HFA 8 GM INHALER INH ×4 (01:48→19:57)
[2018-05-21] MEDS: metroNIDAZOLE 500 MG TAB PO ×3 (06:52→21:18)
[2018-05-21] MEDS: predniSONE 2.5 MG TAB GTB (08:40)
[2018-05-21] MEDS: CHOLESTYRAMINE 4 GM PACKET PO ×3 (08:40→21:11)
[2018-05-21] MEDS: COLLAGENASE 5 GM (UD JAR) TOP (08:40)
[2018-05-21] MEDS: LEVETIRACETAM (100 MG/ML) 5ML CUP GTB ×2 (08:40→21:11)
[2018-05-21] MEDS: BALSAM PERU/CASTOR OIL 60 GM TUBE TOP ×2 (08:40→21:12)
[2018-05-21] MEDS: LACTOBACILLUS RHAMNOSUS CAP PO ×2 (08:40→21:11)
[2018-05-21 09:18] LABS: ADD MAN DIFF? NO
[2018-05-21 09:27] LABS: ABNORMAL IP MESSAGE 1; BASOPHILS % 0.2 % (0.0-2.0); EOSINOPHILS % 0.1 % (0.0-7.0); HEMATOCRIT 27.4 % (42.0-52.0); HEMOGLOBIN 8.4 g/dl (14.0-18.0); LYMPHOCYTES # 0.6 10^3/ul (0.8-2.9); LYMPHOCYTES % 5.2 % (15.0-51.0); MEAN CORPUSCULAR HEMOGLOBIN 29.7 pg (29.0-33.0); MEAN CORPUSCULAR HGB CONC 30.7 g/dl (32.0-37.0); MEAN CORPUSCULAR VOLUME 96.8 fl (82.0-101.0); MEAN PLATELET VOLUME 12.7 fl (7.4-10.4); MONOCYTE # 0.7 10^3/ul (0.3-0.9); NEUTROPHIL # 10.4 10^3/ul (1.6-7.5); NEUTROPHILS % 87.2 % (39.0-77.0); NUCLEATED RED BLOOD CELLS # 1.3 10^3/ul (0.0-0.0); NUCLEATED RED BLOOD CELLS% 11.3 /100WBC (0.0-0.0); PLATELET COUNT 46 10^3/UL (140-415); POSITIVE DIFF @See below; RED BLOOD COUNT 2.83 10^6/ul (4.70-6.10); RED CELL DISTRIBUTION WIDTH 20.2 % (11.5-14.5)
[2018-05-21 09:57] LABS: ALANINE AMINOTRANSFERASE 32 IU/L (13-69); ALBUMIN 2.2 g/dl (3.3-4.9); ALBUMIN/GLOBULIN RATIO 0.78; ALKALINE PHOSPHATASE 190 IU/L (42-121); ANION GAP 10 (8-16); ASPARTATE AMINO TRANSFERASE 16 IU/L (15-46); BILIRUBIN,INDIRECT 0.4 mg/dl (0-1.1); BILIRUBIN,TOTAL 0.4 mg/dl (0.2-1.3); BLOOD UREA NITROGEN 37 mg/dl (7-20); CALCIUM 7.6 mg/dl (8.4-10.2); CARBON DIOXIDE 27 mmol/L (21-31); CHLORIDE 104 mmol/L (97-110); CREATININE 1.59 mg/dl (0.61-1.24); GLUCOSE 86 mg/dl (70-220); POTASSIUM 3.5 mmol/L (3.5-5.1); SODIUM 137 mmol/L (135-144)
[2018-05-21 10:30] LABS: ANISOCYTOSIS 2+ (0-0); BAND NEUTROPHILS % (M) 7 % (0-4); EOSINOPHILS % (M) 1 % (0-7); ERYTHROBLAST% (NRBC) (M) 31 % (0-0); LYMPHOCYTES % (M) 2 % (15-51); METAMYELOCYTES %M 1 % (0-0); MONOCYTES % (M) 3 % (0-11); PLATELET ESTIMATE SIG DECREASED; POLYCHROMASIA 2+ (0-0); PROMYELOCYTES % (M) 1 % (0-0); SEGMENTED NEUTROPHILS (M) % 85 % (39-77); SMUDGE%M 45 % (0-0); SPHEROCYTES 1+ (0-0); TARGET CELLS 1+ (0-0)
[2018-05-21 11:02] LABS: HEPATITIS B SURFACE ANTIGEN NEGATIVE (NEGATIVE)
[2018-05-21] MEDS: ALBUMIN HUMAN 25% 100 ML IV (11:45)
[2018-05-21 12:33] LABS: WHITE BLOOD COUNT 11.9 10^3/ul (4.8-10.8)
[2018-05-21 12:33] LABS: BAND NEUTROPHILS #M 0.8 10^3/ul (0.0-0.6); LYMPHOCYTES #M 0.2 10^3/ul (0.8-2.9); METAMYELOCYTES #M 0.1 10^3/ul (0.0-0.0); MONOCYTE #M 0.3 10^3/ul (0.3-0.9); PROMYELOCYTES #M 0.1 10^3/ul (0-0); SEG NEUT #M 10.2 10^3/ul (1.7-7.5)
[2018-05-21] MEDS: HEPARIN 1000 UNITS/ML 10 ML INJ CATHETER (13:48)
[2018-05-21] MEDS: EPOETIN 10000 UNITS/1 ML INJ (ESRD) SC (17:16)
[2018-05-21] MEDS: SOD CHLORIDE 0.9% 250 ML IV (18:36)
[2018-05-21] MEDS: DIVALPROEX SPRINKLE 125 MG CAP PO (21:11)
[2018-05-21] MEDS: ATORVASTATIN 20 MG TAB GTB (21:11)
[2018-05-22] MEDS: ALBUTEROL HFA 8 GM INHALER INH ×4 (03:11→19:46)
[2018-05-22] MEDS: metroNIDAZOLE 500 MG TAB PO ×3 (05:16→21:07)
[2018-05-22] MEDS: COLLAGENASE 5 GM (UD JAR) TOP (08:48)
[2018-05-22] MEDS: LACTOBACILLUS RHAMNOSUS CAP PO ×2 (08:48→20:40)
[2018-05-22] MEDS: LEVETIRACETAM (100 MG/ML) 5ML CUP GTB ×2 (08:48→20:41)
[2018-05-22] MEDS: BALSAM PERU/CASTOR OIL 60 GM TUBE TOP ×2 (08:49→20:41)
[2018-05-22] MEDS: CHOLESTYRAMINE 4 GM PACKET PO ×3 (08:49→23:31)
[2018-05-22] MEDS: MIDODRINE 5 MG TAB GTB ×2 (08:49→16:41)
[2018-05-22] MEDS: predniSONE 2.5 MG TAB GTB (09:00)
[2018-05-22 11:18] LABS: ANION GAP 13 (8-16); BLOOD UREA NITROGEN 29 mg/dl (7-20); CALCIUM 7.6 mg/dl (8.4-10.2); CARBON DIOXIDE 26 mmol/L (21-31); CHLORIDE 101 mmol/L (97-110); CREATININE 1.32 mg/dl (0.61-1.24); GLUCOSE 81 mg/dl (70-220); MAGNESIUM 1.7 mg/dl (1.7-2.5); POTASSIUM 3.1 mmol/L (3.5-5.1); SODIUM 137 mmol/L (135-144)
[2018-05-22] MEDS: POTASSIUM CHLORIDE 20 MEQ POWDER FOR ORAL SOLN GTB (17:58)
[2018-05-22] MEDS: DIVALPROEX SPRINKLE 125 MG CAP PO (20:40)
[2018-05-22] MEDS: ATORVASTATIN 20 MG TAB GTB (20:40)
[2018-05-23] MEDS: ALBUTEROL HFA 8 GM INHALER INH ×4 (01:06→19:56)
[2018-05-23] MEDS: metroNIDAZOLE 500 MG TAB PO ×3 (05:41→23:13)
[2018-05-23 06:55] LABS: ADD MAN DIFF? NO
[2018-05-23 07:04] LABS: ABNORMAL IP MESSAGE 1; BASOPHILS % 0.2 % (0.0-2.0); EOSINOPHILS % 0.1 % (0.0-7.0); HEMOGLOBIN 8.7 g/dl (14.0-18.0); LYMPHOCYTES # 0.8 10^3/ul (0.8-2.9); LYMPHOCYTES % 6.7 % (15.0-51.0); MEAN CORPUSCULAR HEMOGLOBIN 30.5 pg (29.0-33.0); MEAN CORPUSCULAR HGB CONC 31.1 g/dl (32.0-37.0); MEAN CORPUSCULAR VOLUME 98.2 fl (82.0-101.0); MONOCYTE # 0.6 10^3/ul (0.3-0.9); NEUTROPHILS % 87.3 % (39.0-77.0); NUCLEATED RED BLOOD CELLS # 0.3 10^3/ul (0.0-0.0); NUCLEATED RED BLOOD CELLS% 2.3 /100WBC (0.0-0.0); PLATELET COUNT 55 10^3/UL (140-415); POSITIVE DIFF @See below; RED BLOOD COUNT 2.85 10^6/ul (4.70-6.10); RED CELL DISTRIBUTION WIDTH 19.9 % (11.5-14.5)
[2018-05-23 07:04] LABS: WHITE BLOOD COUNT 11.5 10^3/ul (4.8-10.8)
[2018-05-23 07:24] LABS: ANION GAP 12 (8-16); BLOOD UREA NITROGEN 39 mg/dl (7-20); CALCIUM 7.6 mg/dl (8.4-10.2); CARBON DIOXIDE 25 mmol/L (21-31); CHLORIDE 104 mmol/L (97-110); CREATININE 1.58 mg/dl (0.61-1.24); GLUCOSE 76 mg/dl (70-220); POTASSIUM 3.1 mmol/L (3.5-5.1); SODIUM 138 mmol/L (135-144)
[2018-05-23 07:55] LABS: ANISOCYTOSIS 1+ (0-0); BAND NEUTROPHILS #M 2.6 10^3/ul (0.0-0.6); BAND NEUTROPHILS % (M) 23 % (0-4); HYPOCHROMASIA 1+ (0-0); LYMPHOCYTES #M 0.9 10^3/ul (0.8-2.9); LYMPHOCYTES % (M) 8 % (15-51); MONOCYTE #M 0.1 10^3/ul (0.3-0.9); MONOCYTES % (M) 1 % (0-11); PLATELET ESTIMATE SIG DECREASED; POLYCHROMASIA 1+ (0-0); REACTIVE LYMPHOCYTES #M 0.1 10^3/ul (0.0-0.0); REACTIVE LYMPHOCYTES% (M) 1 % (0-0); SEGMENTED NEUTROPHILS (M) % 67 % (39-77); TARGET CELLS 1+ (0-0)
[2018-05-23] MEDS: LACTOBACILLUS RHAMNOSUS CAP PO ×2 (08:56→23:13)
[2018-05-23] MEDS: LEVETIRACETAM (100 MG/ML) 5ML CUP GTB ×2 (08:56→23:13)
[2018-05-23] MEDS: POTASSIUM CHLORIDE 20 MEQ POWDER FOR ORAL SOLN GTB (08:56)
[2018-05-23] MEDS: CHOLESTYRAMINE 4 GM PACKET PO ×2 (08:57→13:02)
[2018-05-23] MEDS: COLLAGENASE 5 GM (UD JAR) TOP (08:57)
[2018-05-23] MEDS: predniSONE 2.5 MG TAB GTB (08:57)
[2018-05-23] MEDS: BALSAM PERU/CASTOR OIL 60 GM TUBE TOP ×2 (08:58→23:13)
[2018-05-23] MEDS: MIDODRINE 5 MG TAB GTB ×2 (09:03→17:59)
[2018-05-23] MEDS: EPOETIN 10000 UNITS/1 ML INJ (ESRD) SC (18:03)
[2018-05-23] MEDS: ALBUMIN HUMAN 25% 100 ML IV ×2 (21:00→21:26)
[2018-05-23] MEDS: ATORVASTATIN 20 MG TAB GTB (23:13)
[2018-05-24] MEDS: HEPARIN 1000 UNITS/ML 10 ML INJ CATHETER (00:07)
[2018-05-24] MEDS: DIVALPROEX SPRINKLE 125 MG CAP PO ×2 (00:26→21:45)
[2018-05-24] MEDS: ALBUTEROL HFA 8 GM INHALER INH ×4 (01:31→19:41)
[2018-05-24] MEDS: CHOLESTYRAMINE 4 GM PACKET PO ×4 (03:19→21:49)
[2018-05-24] MEDS: metroNIDAZOLE 500 MG TAB PO ×3 (06:47→21:45)
[2018-05-24] MEDS: LACTOBACILLUS RHAMNOSUS CAP PO ×2 (08:28→21:45)
[2018-05-24] MEDS: COLLAGENASE 5 GM (UD JAR) TOP (08:28)
[2018-05-24] MEDS: BALSAM PERU/CASTOR OIL 60 GM TUBE TOP ×2 (08:28→21:47)
[2018-05-24] MEDS: predniSONE 2.5 MG TAB GTB (08:28)
[2018-05-24] MEDS: LEVETIRACETAM (100 MG/ML) 5ML CUP GTB ×2 (08:28→21:44)
[2018-05-24] MEDS: MIDODRINE 5 MG TAB GTB ×2 (08:38→18:06)
[2018-05-24] MEDS: ATORVASTATIN 20 MG TAB GTB (21:45)
[2018-05-25] MEDS: ALBUTEROL HFA 8 GM INHALER INH ×4 (01:22→19:26)
[2018-05-25] MEDS: metroNIDAZOLE 500 MG TAB PO ×3 (06:54→21:10)
[2018-05-25] MEDS: predniSONE 2.5 MG TAB GTB (09:12)
[2018-05-25] MEDS: LACTOBACILLUS RHAMNOSUS CAP PO ×2 (09:12→21:05)
[2018-05-25] MEDS: LEVETIRACETAM (100 MG/ML) 5ML CUP GTB ×2 (09:12→21:05)
[2018-05-25] MEDS: COLLAGENASE 5 GM (UD JAR) TOP (09:12)
[2018-05-25] MEDS: BALSAM PERU/CASTOR OIL 60 GM TUBE TOP ×2 (09:13→21:06)
[2018-05-25] MEDS: MIDODRINE 5 MG TAB GTB ×2 (09:13→17:01)
[2018-05-25] MEDS: CHOLESTYRAMINE 4 GM PACKET PO ×3 (09:13→21:06)
[2018-05-25] MEDS: ATORVASTATIN 20 MG TAB GTB (21:05)
[2018-05-25] MEDS: DIVALPROEX SPRINKLE 125 MG CAP PO (21:05)
[2018-05-26] MEDS: ALBUTEROL HFA 8 GM INHALER INH ×6 (01:17→20:52)
[2018-05-26] MEDS: metroNIDAZOLE 500 MG TAB PO ×3 (06:14→22:00)
[2018-05-26] MEDS: CHOLESTYRAMINE 4 GM PACKET PO ×4 (08:53→21:00)
[2018-05-26] MEDS: predniSONE 2.5 MG TAB GTB (08:53)
[2018-05-26] MEDS: LACTOBACILLUS RHAMNOSUS CAP PO ×2 (08:53→20:00)
[2018-05-26] MEDS: LEVETIRACETAM (100 MG/ML) 5ML CUP GTB ×2 (08:53→20:00)
[2018-05-26] MEDS: MIDODRINE 5 MG TAB GTB ×2 (08:54→16:30)
[2018-05-26] MEDS: BALSAM PERU/CASTOR OIL 60 GM TUBE TOP ×2 (08:54→20:02)
[2018-05-26] MEDS: COLLAGENASE 5 GM (UD JAR) TOP (08:55)
[2018-05-26 14:10] LABS: ABNORMAL IP MESSAGE 1; HEMOGLOBIN 7.5 g/dl (14.0-18.0); MEAN CORPUSCULAR HEMOGLOBIN 29.3 pg (29.0-33.0); MEAN CORPUSCULAR HGB CONC 31.3 g/dl (32.0-37.0); MEAN CORPUSCULAR VOLUME 93.8 fl (82.0-101.0); NUCLEATED RED BLOOD CELLS% 0.7 /100WBC (0.0-0.0); PLATELET COUNT 60 10^3/UL (140-415); POSITIVE DIFF @See below; RED BLOOD COUNT 2.56 10^6/ul (4.70-6.10)
[2018-05-26 14:10] LABS: WHITE BLOOD COUNT 5.9 10^3/ul (4.8-10.8)
[2018-05-26 14:23] LABS: ADD MAN DIFF? YES
[2018-05-26 14:30] LABS: ANION GAP 13 (8-16); BLOOD UREA NITROGEN 52 mg/dl (7-20); CALCIUM 7.5 mg/dl (8.4-10.2); CARBON DIOXIDE 18 mmol/L (21-31); CHLORIDE 106 mmol/L (97-110); CREATININE 1.87 mg/dl (0.61-1.24); GLUCOSE 106 mg/dl (70-220); SODIUM 134 mmol/L (135-144)
[2018-05-26 16:27] LABS: ANISOCYTOSIS 1+ (0-0); BAND NEUTROPHILS #M 1.7 10^3/ul (0.0-0.6); BAND NEUTROPHILS % (M) 29 % (0-4); BURR CELLS 1+ (0-0); ERYTHROBLAST% (NRBC) (M) 2 % (0-0); GIANT THROMBO% (M) 1 % (0-0); HYPOCHROMASIA 1+ (0-0); LYMPHOCYTES #M 0.3 10^3/ul (0.8-2.9); LYMPHOCYTES % (M) 6 % (15-51); MICROCYTOSIS 1+ (0-0); MONOCYTE #M 0.1 10^3/ul (0.3-0.9); MONOCYTES % (M) 3 % (0-11); PLATELET ESTIMATE DECREASED; POIKILOCYTOSIS 1+ (0-0); SEG NEUT #M 3.8 10^3/ul (1.6-7.5); SEGMENTED NEUTROPHILS (M) % 62 % (39-77); SMUDGE%M 5 % (0-0); TARGET CELLS 1+ (0-0)
[2018-05-26] MEDS: EPOETIN 10000 UNITS/1 ML INJ (ESRD) SC (16:30)
[2018-05-26] MEDS: ATORVASTATIN 20 MG TAB GTB (20:00)
[2018-05-26] MEDS: DIVALPROEX SPRINKLE 125 MG CAP PO (20:00)
[2018-05-26 22:28] LABS: IMMEDIATE SPIN CROSSMATCH 1 2
[2018-05-27] MEDS: ALBUTEROL HFA 8 GM INHALER INH ×4 (02:02→13:58)
[2018-05-27] MEDS: HEPARIN 1000 UNITS/ML 10 ML INJ CATHETER (02:11)
[2018-05-27] MEDS: metroNIDAZOLE 500 MG TAB PO ×2 (06:08→13:08)
[2018-05-27] MEDS: COLLAGENASE 5 GM (UD JAR) TOP (08:35)
[2018-05-27] MEDS: CHOLESTYRAMINE 4 GM PACKET PO ×3 (08:35→16:00)
[2018-05-27] MEDS: BALSAM PERU/CASTOR OIL 60 GM TUBE TOP (08:36)
[2018-05-27] MEDS: LEVETIRACETAM (100 MG/ML) 5ML CUP GTB (08:36)
[2018-05-27] MEDS: predniSONE 2.5 MG TAB GTB (08:36)
[2018-05-27] MEDS: LACTOBACILLUS RHAMNOSUS CAP PO (08:37)
[2018-05-27] MEDS: MIDODRINE 5 MG TAB GTB ×2 (08:37→17:20)
[2018-05-27 12:19] LABS: WHITE BLOOD COUNT 6.6 10^3/ul (4.8-10.8)
[2018-05-27 12:19] LABS: ABNORMAL IP MESSAGE 1; HEMATOCRIT 32.3 % (42.0-52.0); HEMOGLOBIN 10.5 g/dl (14.0-18.0); MEAN CORPUSCULAR HEMOGLOBIN 28.9 pg (29.0-33.0); MEAN CORPUSCULAR HGB CONC 32.5 g/dl (32.0-37.0); NUCLEATED RED BLOOD CELLS% 1.1 /100WBC (0.0-0.0); PLATELET COUNT 51 10^3/UL (140-415); POSITIVE DIFF @See below; RED BLOOD COUNT 3.63 10^6/ul (4.70-6.10); RED CELL DISTRIBUTION WIDTH 19.9 % (11.5-14.5)
[2018-05-27 12:27] LABS: ADD MAN DIFF? YES
[2018-05-27 12:35] LABS: ANION GAP 14 (8-16); BLOOD UREA NITROGEN 39 mg/dl (7-20); CALCIUM 7.8 mg/dl (8.4-10.2); CARBON DIOXIDE 21 mmol/L (21-31); CHLORIDE 104 mmol/L (97-110); CREATININE 1.61 mg/dl (0.61-1.24); GLUCOSE 108 mg/dl (70-220); SODIUM 136 mmol/L (135-144)
[2018-05-27 12:50] LABS: ANISOCYTOSIS 2+ (0-0); BAND NEUTROPHILS #M 0.7 10^3/ul (0.0-0.6); BAND NEUTROPHILS % (M) 11 % (0-4); BURR CELLS 1+ (0-0); ERYTHROBLAST% (NRBC) (M) 2 % (0-0); GIANT THROMBO% (M) 5 % (0-0); LYMPHOCYTES #M 0.8 10^3/ul (0.8-2.9); LYMPHOCYTES % (M) 13 % (15-51); MONOCYTE #M 0.3 10^3/ul (0.3-0.9); MONOCYTES % (M) 6 % (0-11); PLATELET ESTIMATE DECREASED; POIKILOCYTOSIS 1+ (0-0); SEG NEUT #M 4.7 10^3/ul (1.6-7.5); SEGMENTED NEUTROPHILS (M) % 70 % (39-77); SMUDGE%M 65 % (0-0); TARGET CELLS 1+ (0-0); TOXIC GRANULATION 1+ (0-0)
[2018-05-27] MEDS: POTASSIUM CHLORIDE 20 MEQ POWDER FOR ORAL SOLN PO (13:08)
== END 2018-05-27 18:41 | disposition short-term general hospital (02) | DRG 870 ==
LOC: 6WM 04-26 01:57 → ICU 05-10 08:03 → 6WM 05-18 18:31 → ICU 20:38 → 6WM 05-18 18:38
PROC: 0JHN3XZ Insertion of Tunneled Vascular Access Device into Right Lower Leg Subcutaneous Tissue and Fascia, Percutaneous Approach (ICD-10-PCS; 2018-05-03 13:00)
PROC: 02HV33Z Insertion of Infusion Device into Superior Vena Cava, Percutaneous Approach (ICD-10-PCS; 2018-05-03 13:00)
PROC: 5A1955Z Respiratory Ventilation, Greater than 96 Consecutive Hours (ICD-10-PCS; principal; 2018-05-03 13:50)
PROC: 5A1D70Z Performance of Urinary Filtration, Intermittent, Less than 6 Hours Per Day (ICD-10-PCS; 2018-05-03 13:50)
PROC: 0W9G3ZZ Drainage of Peritoneal Cavity, Percutaneous Approach (ICD-10-PCS; 2018-05-03 13:50)
PROC: 0W9G3ZZ Drainage of Peritoneal Cavity, Percutaneous Approach (ICD-10-PCS; 2018-05-03 13:50)
PROC: 30233K1 Transfusion of Nonautologous Frozen Plasma into Peripheral Vein, Percutaneous Approach (ICD-10-PCS; 2018-05-03 13:50)
PROC: 30233N1 Transfusion of Nonautologous Red Blood Cells into Peripheral Vein, Percutaneous Approach (ICD-10-PCS; 2018-05-03 13:50)
PROC: 30233R1 Transfusion of Nonautologous Platelets into Peripheral Vein, Percutaneous Approach (ICD-10-PCS; 2018-05-03 13:50)
DX: A41.9 Sepsis, unspecified organism (principal); R65.21 Severe sepsis with septic shock; I46.9 Cardiac arrest, cause unspecified; N18.6 End stage renal disease; D65 Disseminated intravascular coagulation [defibrination syndrome]; J18.9 Pneumonia, unspecified organism; J96.21 Acute and chronic respiratory failure with hypoxia; G92 Toxic encephalopathy; I12.0 Hypertensive chronic kidney disease with stage 5 chronic kidney disease or end stage renal disease; E87.4 Mixed disorder of acid-base balance; Z99.11 Dependence on respirator [ventilator] status; I42.9 Cardiomyopathy, unspecified; R18.8 Other ascites; J98.11 Atelectasis; L03.116 Cellulitis of left lower limb; E87.2 Acidosis; N17.9 Acute kidney failure, unspecified; D61.818 Other pancytopenia; T82.41XA Breakdown (mechanical) of vascular dialysis catheter, initial encounter; Z99.2 Dependence on renal dialysis; Z95.810 Presence of automatic (implantable) cardiac defibrillator; E78.5 Hyperlipidemia, unspecified; Z86.718 Personal history of other venous thrombosis and embolism; D63.1 Anemia in chronic kidney disease; T17.990A Other foreign object in respiratory tract, part unspecified in causing asphyxiation, initial encounter; Z93.0 Tracheostomy status; Z93.1 Gastrostomy status; E87.5 Hyperkalemia; G40.909 Epilepsy, unspecified, not intractable, without status epilepticus; E83.51 Hypocalcemia; E87.6 Hypokalemia; K74.60 Unspecified cirrhosis of liver
CPT/HCPCS: 36430; 36600; 70450; 71045; 74018; 74178; 76705; 80048; 80053; 80202; 82140; 82728; 82803; 82962; 83540; 83605; 83615; 83735; 84100; 85025; 85049; 85362; 85378; 85384; 85610; 85670; 85730; 86022; 86644; 86850; 86900; 86901; 86920; 87040; 87045; 87070; 87075; 87081; 87102; 87116; 87340; 90935; 92950; 93923; 93931; 93971; 94002; 94003; 94640; 94664; 95819